=== PATIENT | female | born 1950 | race Caucasian/White ===

== ENCOUNTER 2019-05-24 13:50 | Emergency (ER) | payer MEDICARE ==
[2019-05-24 14:01] VITALS: BP 179/100
[2019-05-24] MEDS ORDERED: Al Hydrox/Mg Hydrox/Simet LIQ* 30 ML UDC PO ONE (14:29)
[2019-05-24] MEDS ORDERED: Lidocaine 2% VISCOUS* 15 ML UDC PO ONE (14:30)
--- NOTE | 2019-05-24 14:38 | UC ---
UC General HPI - HPI Summary HPI Summary: 68 yo female presents c/o acute midepigastric knife like abd pain since approx 8am this am. ++ belching. No n/v/d. No rash. No sob / cp / palpitations. No recent illness. Pt is under a great deal of stress, resides out of town, here to care for daughter with terminal illness. No h/a , vis / aud changes. Takes baby asa daily but not today. Hx cynthia bso s/p ovarian ca 25 yrs ago. No melena / brbpr. No urinary c/o's. - History of Current Complaint Chief Complaint: UCAbdominalPain Stated Complaint: ABDOMINAL COMPLAINT Time Seen by Provider: 05/24/19 14:13 Pain Intensity: 8 - Allergy/Home Medications Allergies/Adverse Reactions: Allergies Allergy/AdvReac Type Severity Reaction Status Date / Time No Known Allergies Allergy Verified 05/24/19 14:01 Home Medications: Home Medications ALPRAZolam [Xanax] 1 mg PO TID 05/24/19 [History Confirmed 05/24/19] Aspirin [Aspirin Childrens 81 MG] 81 mg PO DAILY 05/24/19 [History Confirmed ] Ferrous Gluconate TAB* [Fergon TAB*] 325 mg PO DAILY 05/24/19 [History Confirmed 05/24/19] Garlic 1,000 mg PO DAILY 05/24/19 [History Confirmed 05/24/19] Lisinopril 20 mg PO DAILY 05/24/19 [History Confirmed 05/24/19] Niacinamide [Niacin] 500 mg PO DAILY 05/24/19 [History Confirmed 05/24/19] Red Yeast Rice 600 mg PO DAILY 05/24/19 [History Confirmed 05/24/19] Selenium [Selenomax] 200 mcg PO 05/24/19 [History] Ubidecarenone [Coq10] 100 mg PO DAILY 05/24/19 [History Confirmed 05/24/19] diphenhydrAMINE HCl [Diphenhydramine HCl] 50 mg PO BEDTIME 05/24/19 [History Confirmed 05/24/19] PMH/Surg Hx/FS Hx/Imm Hx Previously Healthy: No - see hpi - Surgical History Surgical History: Yes Surgery Procedure, Year, and Place: total hysterectomy, oopherectomy, salpengectomy, appy - Social History Alcohol Use: Rare Substance Use Type: None Smoking Status (MU): Never Smoked Tobacco Review of Systems All Other Systems Reviewed And Are Negative: Yes Constitutional: Positive: Negative Skin: Positive: Negative Eyes: Positive: Negative ENT: Positive: Negative Respiratory: Positive: Other - see hpi Cardiovascular: Positive: Other - see hpi Gastrointestinal: Positive: Other - see hpi Motor: Positive: Negative Neurovascular: Positive: Negative Musculoskeletal: Positive: Negative Neurological: Positive: Negative Psychological: Positive: Negative Is Patient Immunocompromised?: No Physical Exam Triage Information Reviewed: Yes Appearance: Pain Distress, Thin Vital Signs: Initial Vital Signs Temp 97.7 F 05/24/19 13:56 Pulse 98 05/24/19 13:56 Resp 18 05/24/19 13:56 BP 179/100 05/24/19 13:56 Pulse Ox 100 05/24/19 13:56 Vital Signs Reviewed: Yes Eye Exam: Normal ENT Exam: Normal Neck exam: Normal Neck: Positive: Supple, Nontender Respiratory: Positive: Chest non-tender, Lungs clear, Normal breath sounds, No respiratory distress, No accessory muscle use Cardiovascular: Positive: RRR, No Murmur, Pulses Normal, Brisk Capillary Refill Abdominal Exam: Other - + thin + weight loss evidence + well healed large scar + + tender mid-epig + bs Musculoskeletal Exam: Normal - moves x 4 ext's hurts to lie down Neurological Exam: Normal - grossly nonfocal Psychological Exam: Normal - appropriate (tearful d/t stressors and pain) Skin Exam: Normal - nondiaphoretic. no visible or reported rash Course/Dx - Course Course Of Treatment: SR at 89 bpm. LAE. BL left axis dev. low voltage, ext leads. Highly recommend eval / tx Emergency Department. Ms. Montague carefully considered this, her family member will drive her. She does not want to go via EMS. Requests something for pain before she leaves, GI cocktail (lidocaine v., maalox ) ordered. Declines anti-emetic. Diff dx is extensive. She is aware. Call to ED at time of pt departure. - Diagnoses Provider Diagnosis: Acute abdominal pain Discharge ED - Sign-Out/Discharge Documenting (check all that apply): Patient Departure All imaging exams completed and their final reports reviewed: No Studies - Discharge Plan Condition: Guarded Disposition: HOME-RECOMMEND TO ED Patient Education Materials: Acute Abdominal Pain (ED) Referrals: No Primary Care Phys,NOPCP [Primary Care Provider] - Additional Instructions: Please go directly to the Emergency Department. Stop and call 911 for ANY problems en route. Do not eat or drink anything on the way to the Emergency Department. - Billing Disposition and Condition Condition: GUARDED Disposition: Home-Recommend to ED
== END 2019-05-24 14:45 | disposition home health service (06) ==
LOC: UCEAST 13:50
DX: R10.13 Epigastric pain (principal)
CPT/HCPCS: 93005; 99202; A9270-GY; G0463

== ENCOUNTER 2019-05-24 15:07 | Inpatient (IN) | payer MEDICARE ==
[2019-05-24] MEDS ORDERED: Morphine INJ* 2 MG/ML 1 ML SYRINGE (TWO MG - NEW SYRINGE VERSION) IV ONE ×2 (16:45→17:59)
[2019-05-24] MEDS ORDERED: Ondansetron INJ* 2 MG/ML VIAL IV ONE ×2 (16:48→21:16)
[2019-05-24] MEDS ORDERED: NS 0.9% 1000 ML** 1,000 ML IV ONE (16:48)
--- NOTE | 2019-05-24 16:59 | ED ---
GI/ HPI - HPI Summary HPI Summary: 68-year-old female presents epigastric pain today. She states that pain radiates to her back. She said belching a lot. She denies any nausea vomiting. She only had a bowel movement today because she had an enema. She has not been passing gas. She denies any history of bowel obstruction. Denies any chest pain shortness breath. She was seen at urgent care and sent in for potential abnormal EKG. No urinary symptoms. No diarrhea. Has a history of ovarian cancer that is in remission. Has had a surgery from this. - History of Current Complaint Chief Complaint: EDAbdPain Time Seen by Provider: 05/24/19 16:41 Stated Complaint: ABDOMINAL/BACK PAIN PER PT Pain Intensity: 5 - Allergy/Home Medications Allergies/Adverse Reactions: Allergies Allergy/AdvReac Type Severity Reaction Status Date / Time No Known Allergies Allergy Verified 05/24/19 14:01 Home Medications: Home Medications ALPRAZolam TAB* [Xanax TAB*] 1 mg PO TID 05/24/19 [History Confirmed 05/24/19] Aspirin 81 mg CHEW TAB* [Aspirin Low Dose TAB*] 81 mg PO DAILY 05/24/19 [ History Confirmed 05/24/19] Lisinopril TAB* [Prinivil TAB*] 20 mg PO DAILY 05/24/19 [History Confirmed 05/24] Red Yeast Rice 600 mg PO DAILY 05/24/19 [History Confirmed 05/24/19] Selenium (NF) 200 mcg PO DAILY 05/24/19 [History Confirmed 05/24/19] Ubidecarenone [Co Q-10] 100 mg PO DAILY 05/24/19 [History Confirmed 05/24/19] diPHENhydraMINE PO* [Benadryl PO 50 MG CAP*] 50 mg PO BEDTIME 05/24/19 [History Confirmed 05/24/19] PMH/Surg Hx/FS Hx/Imm Hx Endocrine/Hematology History: Denies: Hx Anticoagulant Therapy Cardiovascular History: Reports: Hx Hypertension - Cancer History Cancer Type, Location and Year: ovarian CA - Surgical History Surgery Procedure, Year, and Place: total hysterectomy, oopherectomy, salpengectomy, appy - Immunization History Immunizations Up to Date: Yes Infectious Disease History: No Infectious Disease History: Denies: Traveled Outside the [place] in Last 30 Days - Family History Known Family History: Positive: Non-Contributory - Social History Alcohol Use: Rare Substance Use Type: Reports: None Smoking Status (MU): Never Smoked Tobacco Review of Systems Negative: Fever Negative: Chest Pain Negative: Shortness Of Breath Positive: Abdominal Pain, Nausea. Negative: Vomiting, Diarrhea All Other Systems Reviewed And Are Negative: Yes Physical Exam Triage Information Reviewed: Yes Vital Signs On Initial Exam: Initial Vitals Temp Pulse Resp BP Pulse Ox 98 F 89 20 141/100 100 05/24/19 15:42 05/24/19 15:42 05/24/19 15:42 05/24/19 15:42 05/24/19 15:42 Vital Signs Reviewed: Yes Appearance: Positive: Well-Appearing Skin: Positive: Warm, Dry Head/Face: Positive: Normal Head/Face Inspection Eyes: Positive: Normal ENT: Positive: Normal ENT inspection, Pharynx normal Respiratory/Lung Sounds: Positive: Clear to Auscultation, Breath Sounds Present Cardiovascular: Positive: Normal, RRR Abdomen Description: Positive: Soft, Other: - tenderness in epigastric Bowel Sounds: Positive: Present Musculoskeletal: Positive: Normal Neurological: Positive: Normal Psychiatric: Positive: Normal Procedures - Sedation Patient Received Moderate/Deep Sedation with Procedure: No Diagnostics - Vital Signs Vital Signs Temp Pulse Resp BP Pulse Ox 05/24/19 15:42 98 F 89 20 141/100 100 - Laboratory Result Diagrams: 05/26/19 05:04 05/26/19 05:04 Lab Statement: Any lab studies that have been ordered have been reviewed, and results considered in the medical decision making process. - CT abd CT Interpretation Completed By: Radiologist Summary of CT Findings: IMPRESSION: 1. There are mildly dilated small bowel loops with air fluid levels with transition at the level of the ileum suspicious for small bowel obstruction. 2. There is colonic diverticulosis without evidence for acute diverticulitis. Re-Evaluation - Re-Evaluation First Eval Re-Evaluation Time: 17:59 Change: Improved Comment: pain still present but tolerating pain medication so will give another 2mg morphine Second Eval Re-Evaluation Time: 21:37 Change: Worse Comment: pain is returning GIGU Course/Dx - Course Course Of Treatment: 68-year-old female presents epigastric pain today. She states that pain radiates to her back. She said belching a lot. She denies any nausea vomiting. She only had a bowel movement today because she had an enema. She has not been passing gas. She denies any history of bowel obstruction. Denies any chest pain shortness breath. She was seen at urgent care and sent in for potential abnormal EKG. No urinary symptoms. No diarrhea. Has a history of ovarian cancer that is in remission. Has had a surgery from this. On exam has tenderness epigastric. No bowel sounds heard. Patient appears uncomfortable. vitals stable. wbc normal. crp normal. amylase and lipase normal. CT shows sbo. will place ng tube. called dr leos to make aware of patient. patient has not vomited in ED. ng was placed with good results. dr kowalski agrees to admit. - Diagnoses Differential Diagnoses - Female: Bowel Obstruction, Gall Bladder Disease Provider Diagnoses: Bowel obstruction Discharge ED - Sign-Out/Discharge Documenting (check all that apply): Patient Departure - Discharge Plan Condition: Stable Disposition: ADMITTED TO [facility] - Billing Disposition and Condition Condition: STABLE Disposition: Admitted to [facility] - Attestation Statements Provider Attestation: I was available for consult. This patient was seen by the NATE. The patient was not presented to, seen by, or examined by me. Saul Apple MD
[2019-05-24 17:15] LABS: ABS Lymphocytes 0.7 10^3/ul (1.0-4.8); ABS Monocytes 0.3 10^3/ul (0-0.8); ABS Neutrophils 5.9 10^3/ul (1.5-7.7); Eosinophil % 0.1 %; Hematocrit 34 % (35-47); Hemoglobin 11.6 g/dL (12.0-16.0); Lymphocyte % 10.3 %; Mean Corpuscular HGB Conc 34 g/dL (31-36); Mean Corpuscular Hemoglobin 30 pg (27-31); Mean Corpuscular Volume 87 fL (80-97); Mean Platelet Volume 7.9 fL (7.4-10.4); Platelet Count 249 10^3/uL (150-450); Red Cell Distribution Width 13 % (10-15)
[2019-05-24 17:36] LABS: ALT 9 U/L (7-52); AST 12 U/L (13-39); Albumin 4.6 g/dL (3.2-5.2); Albumin/Globulin Ratio 1.8 (1-3); Alkaline Phosphatase 42 U/L (34-104); Amylase 50 U/L (29-103); Anion Gap 11 mmol/L (2-11); BUN/Creatinine Ratio 17.7 (8-20); Blood Urea Nitrogen 17 mg/dL (6-24); C Reactive Protein < 1.00 mg/L (<8.01); CO2 Carbon Dioxide 23 mmol/L (22-32); Calcium 10.3 mg/dL (8.6-10.3); Chloride 105 mmol/L (101-111); EGFR African American 69.5 (>60); EGFR Non-African American 57.5 (>60); Globulin 2.6 g/dL (2-4); Glucose 113 mg/dL (70-100); Potassium 3.6 mmol/L (3.5-5.0); Sodium 139 mmol/L (135-145); Total Protein 7.2 g/dL (6.4-8.9)
[2019-05-24] MEDS ORDERED: Iodixanol* (CONTRAST) 320 MG/ML 100 ML SDV IV ONE (18:06)
[2019-05-24] MEDS ORDERED: Morphine 4 MG/ML VIAL (1 ml) 4 MG/ML VIAL IV ONE (19:14)
[2019-05-25] MEDS ORDERED: Lorazepam PYXIS KEY PRN (00:50)
[2019-05-25] MEDS: NS 0.9% 1000 ML** 1,000 ML IV SCH ×3 (02:31→23:20)
--- NOTE | 2019-05-25 03:05 | HP ---
CC: Dr. Don Riggs * ADMISSION HISTORY AND PHYSICAL: DATE OF ADMISSION: 05/25/19 CHIEF COMPLAINT: Abdominal pain, nausea, vomiting. HISTORY OF PRESENT ILLNESS: This is a 68-year-old female with past medical history of hypertension; anxiety; history of a large 5-pound mass in her belly, which was later noted to be ovarian cancer, status post debulking surgery about 5 years ago and no other chemo or radiation has been cancer-free since then comes in today due to abdominal pain, nausea, vomiting. The patient stated that pain started around 8 a.m. after she woke up. Pain was located in the epigastric area and nonradiating, was pressure like. She thought she felt constipated, so she tried enemas, but she stated that her constipation feels more on the upper belly rather than the lower belly and the enema did not help with the pain, so she finally decided to come to the ER for further evaluation and was diagnosed with small bowel obstruction. Her pain was still severe after she received morphine; however, her symptoms she claims are much better after NG tube with suctioning of 700 cc of gastric content. She denies any previous episodes of small bowel obstruction. She otherwise denies any chest pain, shortness of breath, fever, or chills. PAST MEDICAL HISTORY: As mentioned, 1. Hypertension. 2. Anxiety disorder. PAST SURGICAL HISTORY: 1. She has had debulking surgery for ovarian cancer and at the same time they removed her uterus, both ovaries and also the appendix. 2. She also had partial left knee surgery. 3. Left rotator cuff surgical repair. HOME MEDICATIONS: She is only prescribed the lisinopril 20 mg oral daily and Xanax 1 mg p.o. b.i.d.; however, she also takes [id number] CoQ10, selenium , Benadryl, niacin, garlic, red yeast rice and Ferrocon. ALLERGIES: No known drug allergies. FAMILY HISTORY: Noncontributory. SOCIAL HISTORY: She is currently living with her daughter caring for her, as she has some terminal cervical cancer and she originally lives near to [place], [place] and all of her primary care is over there. She otherwise denies any alcohol, smoking, or drug use and is otherwise full code and her would be the surrogate decision maker. REVIEW OF SYSTEMS: A 14-point review of systems did not reveal any new information other than what is mentioned in the HPI. PHYSICAL EXAMINATION GENERAL: The patient is awake, alert, and oriented x3, does not appear to be in any acute respiratory distress. VITAL SIGNS: In the ER, BP was noted to be 129/71, heart rate 70, respiration rate 14, saturating 96% on room air, temperature was documented at 98.5 degrees Fahrenheit. HEAD AND NECK: Atraumatic, normocephalic. Bilateral pupils are reactive. Oral mucosa was dry. Neck: Supple. No jugular venous distention. LUNGS: Clear to auscultation bilaterally. No wheezing, rhonchi, or rales. HEART: S1, S2. Regular rate and rhythm. ABDOMEN: Soft, minimally tender, but normoactive bowel sounds. EXTREMITIES: No cyanosis, clubbing, or edema. LABORATORY DATA/DIAGNOSTIC STUDIES: CBC was showing some mild anemia with hemoglobin of 11.6, hematocrit of 34. Comprehensive metabolic panel was unremarkable except for minimally elevated creatinine at 0.96. Lactic acid normal. LFTs within normal limits. EKG showed sinus rhythm at 84 beats per minute without any ST elevation. CT abdomen and pelvis was read as mildly dilated small bowel loops with air fluid levels with transition at the level of ileum, suspicion for small bowel obstruction. There is colonic diverticulosis without evidence of acute diverticulitis. IMPRESSION: This is a 68-year-old female with ovarian cancer status post debulking surgery, hypertension, anxiety disorder, here due to abdominal pain and belching likely secondary to small bowel obstruction. ass ASSESSMENT AND PLAN: 1. Small bowel obstruction, likely secondary to scar tissues from her previous surgery. For now, we will continue the conservative management started in the ER including NG suction to low intermittent wall suctioning. Consult with Dr. Riggs who is already called by the ER physician regarding further care. Keep the patient n.p.o. and IV fluid administration. 2. History of hypertension. We will hold her BP medication. 3. History of anxiety disorder. We will change the Xanax to Ativan p.r.n. IV. 4. DVT prophylaxis with sequential compression device. 5. Code status. Full code with her son being healthcare proxy. [id number]/[facility] #: [id number] [facility]
[2019-05-25] MEDS: Ondansetron INJ* 2 MG/ML VIAL IV PRN ×4 (04:34→23:21)
[2019-05-25] MEDS: Morphine INJ* 2 MG/ML 1 ML SYRINGE (TWO MG - NEW SYRINGE VERSION) IV PRN ×2 (04:37→23:21)
[2019-05-25] MEDS: LORazepam INJ* 2 MG/ML 1 ML VIAL IV PUSH PRN ×2 (07:42→20:51)
--- NOTE | 2019-05-25 09:41 | PN ---
Subjective Date of Service: 05/25/19 Interval History: Patient felt abdominal pain improving, not yet passing gas yet. She started to have headache this morning. Objective Active Medications: Sodium Chloride (Ns 0.9% 1000 Ml) 1,000 mls @ 100 mls/hr IV PER RATE SHONDA Last Admin: 05/25/19 02:31 Dose: 100 mls/hr Lorazepam (Ativan Inj*) 0.5 mg IV PUSH Q4H PRN PRN Reason: ANXIETY Last Admin: 05/25/19 07:42 Dose: 0.5 mg Miscellaneous (Ativan Pyxis Howard) 1 ea N/A .ATIVAN IV HOWARD PRN PRN Reason: PYXIS HOWARD Morphine Sulfate (Morphine Inj (Syringe))*) 2 mg IV Q4H PRN PRN Reason: PAIN - MILD Last Admin: 05/25/19 04:37 Dose: 2 mg Ondansetron HCl (Zofran Inj*) 4 mg IV Q4H PRN PRN Reason: NAUSEA/VOMITING Last Admin: 05/25/19 04:34 Dose: 4 mg Vital Signs - 8 hr 05/25/19 05/25/19 05/25/19 01:48 02:00 02:21 Temperature 98.6 F Pulse Rate 70 75 Respiratory 16 15 18 Rate Blood Pressure 111/63 133/64 (mmHg) O2 Sat by Pulse 96 99 Oximetry 05/25/19 05/25/19 05/25/19 02:26 04:37 06:01 Temperature 98.7 F Pulse Rate 69 Respiratory 16 18 16 Rate Blood Pressure 111/63 (mmHg) O2 Sat by Pulse 96 Oximetry 05/25/19 05/25/19 05/25/19 07:38 07:42 09:22 Temperature 98 F Pulse Rate 84 Respiratory 17 16 16 Rate Blood Pressure 137/63 (mmHg) O2 Sat by Pulse 99 Oximetry Oxygen Devices in Use Now: None Exam: GEN: weak looking, not in acute distress. HEENT: NGT in situ HEART: S1,S2, no murmur Lung: clear Abdomen: soft, tenderness over LLQ, no rebound tenderness, no rigidity Extremity: warm, cap refill<2 Result Diagrams: 05/24/19 17:05 05/24/19 17:05 Assess/Plan/Problems-Billing Assessment: 68 y/o female with history of debulking surgery for cervical cancer, who presented with acute onset of abdominal pain, found to have small bowel obstruction. - Patient Problems (1) Small bowel obstruction Current Visit: Yes Status: Acute Code(s): K56.609 - UNSP INTESTNL OBST, UNSP TO PARTIAL VERSUS COMPLETE OBST SNOMED Code(s): 420425545 Comment: - causes could be surgical adhesion from previous debulking surgery - first episode ever - continue npo, NGT, iv fluid for now, will reaccess BM this afternoon - surgical team will follow up. (2) Headache Current Visit: Yes Status: Acute Code(s): R51 - HEADACHE SNOMED Code(s): 34918362 Comment: - tension headache likely - iv ketorolac prn (3) DVT (deep venous thrombosis) Current Visit: Yes Status: Acute Code(s): I82.409 - ACUTE EMBOLISM AND THOMBOS UNSP DEEP VN UNSP LOWER EXTREMITY SNOMED Code(s): 070259835 Comment: sc Lovenox Status and Disposition: Inpatient Medicine. Attestation Documenting Resident: Allie Dominique Supervising Physician: Candelaria Mcgrath Attestation: This service has been performed in part by a resident under the direction of a teaching physician.I, Candelaria Mcgrath, performed the service, or was physically present during the critical, or howard portions of the service, furnished by the resident. I participated in the management of the patient.
[2019-05-25] MEDS: Ketorolac INJ* 15 MG/ML 1 ML VIAL IV PUSH PRN ×2 (10:05→17:31)
--- NOTE | 2019-05-25 12:09 | PN ---
Hospitalist Progress Note Date of Service: 05/25/19 S/IE: Winifred Montague is a 68 y/o female with a history of ovarian cancer treated by an extensive debulking surgery, HTN and anxiety admitted to the hospitalist service with complaints of abdominal pain, nausea and constipation suspicious for a small bowel obstruction. She has a new complaint of headache and continues to complain of some LLQ tenderness. Pain scale is 7/10. She continues to deny CP, SOB, hemoptysis, fever, and chills. O: PE: 3 Temp Pulse Resp BP Pulse Ox 98.1 F 83 17 126/59 99 05/25/19 11:29 05/25/19 11:29 05/25/19 11:29 05/25/19 11:29 05/25/19 11:29 HEENT: Head atraumatic, normocephalic. PERRLA, EOMI. Oral mucosa dry. Neck supple. No JVD. No lymphadenopathy. Chest: Breathing unlabored with normal symmetric chest wall movement. Lungs clear and equal bilaterally. Regular heart rhythm with normal S1/S2. No rubs, clicks or gallops. Abdomen: Soft and non-distended with diffuse tenderness to palpation primarily of the LLQ. Normal bowel sounds appreciated. Extremities: UE and LE distal CMS intact b/l. Good hand manager convention strength b/l. No edema. Abnormal Lab Values: 3 05/24/19 05/24/19 05/25/19 17:05 17:05 12:35 Hgb 11.6 L Hct 34 L Absolute Lymphs (auto) 0.7 L Creatinine 0.96 H Glucose 113 H AST 12 L Urine Ketones 1+ A Urine Blood 1+ A Ur Leukocyte Esterase Trace A Urine WBC (Auto) 1+(6-10/hpf) A Ur Squamous Epith Cells Present A EKG Report (05/24/19): Sinus rhythm. Probable left atrial enlargement. Borderline left axis deviation. Abdominal X-Ray Report (05/24/19) Pertinent Info: Findings: Mild distention of distal small bowel loops which project over the pelvis. The colon appears nondistended. There are multiple surgical clips which project bilaterally over the abdomen and pelvis. Impression: Findings suggestive of a partial small bowel obstruction. Abdomen / Pelvis CT Report (05/24/19) Pertinent Info: Findings: Stomach and bowel: There are postoperative changes involving the bowel. There are mildly dilated small bowel loops with air fluid levels with transition at the level of the ileum suspicious for small bowel obstruction. There is colonic diverticulosis without evidence for acute diverticulitis. Impression: There are mildly dilated small bowel loops with air fluid levels with transition at the level of the ileum suspicious for small bowel obstruction. There is colonic diverticulosis without evidence for acute diverticulitis. A/I: 68 y/o female with a history of ovarian cancer treated by an extensive debulking surgery, HTN and anxiety with complaints of abdominal pain, nausea and constipation suspicious for a small bowel obstruction likely due to adhesions from previous abdominal surgeries. P: SBO: High suspicion for SBO based upon H+P and imaging studies. Low suspicion for ileus - positive bowel sounds. Low suspicion for peritonitis - stable vital signs. Continue NPO with NG tube in place and monitor for passing of flatus or BM. Consider GI consult if no timely spontaneous resolution. Repeat CBC and CMP QD Continue NS 100 ml/hr IV for hydration Continue MSO4 2 mg IV PRN pain Q4H Continue ondansetron 4 mg IV PRN nausea Q4H Headache: No s/s of migraine. Vital signs stable. Suspect due to sleep disturbance and / or NPO status. Order ketorolac 15 mg IVP PRN Q6H Anxiety: Chronic condition normally managed with PO alprazolam PRN. Continue in hospital management with lorazepam 0.5 mg IVP PRN Q4H
--- NOTE | 2019-05-25 12:30 | CONS ---
CONSULTATION REPORT: DATE OF CONSULT: 05/25/19 REFERRING PROVIDER: Zaki Nix MD, hospitalist. REASON FOR CONSULT: Small bowel obstruction. CHIEF COMPLAINT: Crampy severe abdominal pain with nausea without vomiting. HISTORY OF PRESENT ILLNESS: Ms. Winifred Montague is a 68-year-old woman who lives in [place], [place], who is spending time in [place] with her daughter who presently has a cervical cancer. Yesterday morning, Ms. Montague developed a rather sudden onset of severe crampy abdominal discomfort with nausea without vomiting. This pain persisted and she tried an anemia without improvement. She presented to the emergency room in the afternoon yesterday and was noted to be afebrile with essentially normal vital signs. She was noted to have some mild abdominal discomfort and distention. Nasogastric tube was placed and drained approximately 700 cc of bilious fluid. Laboratory workup included a normal white blood cell count of 7000. Electrolytes, BUN, and creatinine were essentially unremarkable and she had lactic acid of 1.2. Lipase was normal. She underwent a CT scan of the abdomen and pelvis. I did review these images. This shows mildly dilated proximal small bowel loops with some air/fluid levels and some distally collapsed small bowel with the probable transition point in the right lower quadrant. There was some diverticulosis noted. There was no evidence of free fluid, free air or abscess. She underwent an open oncologic operation almost 25 years ago at [facility] [place] for ovarian mass which she describes as cancer. I assume that both ovaries, tubes and uterus as well as a lymph node dissection was performed. She thinks her appendix was also removed. She has been admitted to the hospitalist service and surgical consultation is obtained. PAST MEDICAL HISTORY: 1. Ovarian cancer/tumor as per above. 2. Hypertension. 3. Anxiety disorder. PAST SURGICAL HISTORY: 1. Exploratory laparotomy with hysterectomy and oophorectomy as well as appendectomy. Review of the CT scan shows numerous clips in the retroperitoneum and I assume that a lymph node dissection was also performed. 2. Partial left knee surgery. 3. Left rotator cuff. MEDICATIONS: Include: 1. Lisinopril 20 mg daily. 2. Xanax 1 mg p.o. b.i.d. 3. Multiple [id number] compounds. ALLERGIES: She has no known drug allergies. FAMILY HISTORY: Noncontributory. SOCIAL HISTORY: She is presently living with her daughter and caring for her in [place]. She lives near [place] and her has been commuting back and forth. She has also a daughter who lives in [place]. She does not use alcohol, tobacco, or drugs, and is a full code and her is her surrogate decision maker. REVIEW OF SYSTEMS: A 14-point review of systems did not reveal any new information other than what is described above. PHYSICAL EXAM: Temperature 98, pulse 84, blood pressure 137/63. In general, she is a slender female sitting upright in bed. Appears to be in no acute distress. She is very pleasant and conversive. Lungs were clear to auscultation with normal respiratory effort. Heart was regular rate and rhythm without murmurs, rubs, or gallops. Her abdomen is soft and not particularly distended. She has hyperactive bowel sounds, but they are normal pitched without tinkling or cathedral sounds. She has a well-healed midline incision from just below the xiphoid down to the pubis without hernia. She has some mild tenderness in the left lower quadrant but there is no rebound, guarding, or peritoneal irritation. Psychiatric: She is awake, alert, and oriented x3. She has normal judgement and insight. IMPRESSION: Small bowel obstruction. This is her first episode of symptoms most likely due to adhesive disease from her previous operation almost 25 years ago. She seems to be feeling better now and has received some IV morphine, but shows no evidence of tachycardia, fever, significant abdominal pain and she has a normal white blood cell count. Nasogastric tube is drained minimally overnight. She denies passing flatus or bowel movements since her admission. At this point, I recommend continued nonoperative management and hopefully this will resolve with this care and laparotomy will not be required. I have ordered abdominal x-rays for tomorrow morning for followup. Thank you for the consultation. For now, we will follow her closely with you. [id number]/[facility] #: [id number] ISIDRA
[2019-05-25 13:20] LABS: Urine Appearance Clear; Urine Bacteria Absent (Absent); Urine Bilirubin Negative (Negative); Urine Blood 1+ (Negative); Urine Color Yellow; Urine Glucose Negative (Negative); Urine Ketones 1+ (Negative); Urine Nitrite Negative (Negative); Urine Protein Negative (Negative); Urine Red Blood Cell Trace(0-2/hpf) (Absent); Urine Specific Gravity 1.027 (1.010-1.030); Urine Squamous Epithelial Cell Present (Absent); Urine Urobilinogen Negative (Negative); Urine White Blood Cell 1+(6-10/hpf) (Absent)
--- NOTE | 2019-05-25 14:47 | PN ---
<Chelle Jolley - Last Filed: 05/25/19 15:03> Progress Note - Progress Note Date of Service: 05/25/19 Note: Subjective HPI: Patient is a 68 year old female with a history of Ovarian cancer, hypertension and anxiety that presented to the ED yesterday with a chief complaint of worsening abdominal pain. Her pain began yesterday at 8am and progressively worsened throughout the day. The pain was localized to her lower abdomen and did not radiate. She described the pain as a constant pressure stating that it was a 12/10 and that she has never experienced pain like this before. When she burps, she has a slight decrease in pain. She describes no aggravating factors and did not take any medication for the pain until she came to the ED, which subsequently made her nauseous. She denies vomiting. She was able to have small bowel movements this weekend after taking an enema, but does not recall having a bowel movement within the last 48 hours and has not been able to pass flatus. She denies chest pain, shortness of breathe, heart palpitations or urinary symptoms. She denies fever, chills or night sweats. She has lost about 10 pounds, but states her eating habits have changed due to recent life stressors. She does not feel like her abdomen is distended, and her pain has decreased to a 5/10 since being admitted to the hospital with IV fluids , pain medication and NG tube placement. SH: Patient is and lives with her about 120 miles away from [place]. She is in the area to help her daughter who is terminally ill with cancer. 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 She denies any tobacco, alcohol or recreational drug use. PMH: See HPI Surgical History: resection of ovarian cancer 25 years ago Allergies: NKDA Medications: Lisinopril, 20mg daily; Xanax, 1mg po BID FH: noncontributory Objective Vital Signs Temp 98.1 F 05/25/19 11:29 Pulse 83 05/25/19 11:29 Resp 17 05/25/19 11:29 BP 126/59 05/25/19 11:29 Pulse Ox 99 05/25/19 11:29 Intake & Output 05/24/19 05/25/19 05/25/19 18:59 06:59 18:59 Intake Total 1000 915 Output Total 900 400 Balance 100 515 Weight 140 lb 140 lb Intake: IV Fluids 1000 915 NS (0.9%) 915 Oral 0 0 Output: NG Tube Drainage Amount 900 200 Urine 0 200 Other: Estimated Void Large # Voids 1 General: Ill appearing, slender female laying on the bed. She is pleasant and cooperative and is in mild pain. Does not open eyes fully and communicates mostly by whispering. CV: RRR Lungs: CTA Spine: No CVA tenderness. No paraspinous muscle tenderness. No spinal abnormalities or scoliosis. Abdomen: Appears nondistended without bruising, erythema or pulsitle masses. There is a midline abdominal scar from previous surgery extending from below the xiphoid to the pubis. Positive bowel sounds in all four quadrants. Mild tympani to percussion of the RUQ/LUQ with tenderness to palpation of the RLQ/ LLQ. No rebound, guarding or peritoneal irritation CT abdomen/ pelvis: Per radiology, mildly dilated loops of small bowel with air fluid levels at the level of the ileum suspicious for SBO. There is colonic diverticulosis without evidence of diverticulitis. Laboratory Tests 05/24/19 17:05 WBC 7.0 RBC 3.90 Hgb 11.6 L Hct 34 L Assessment/plan Patient has SBO most likely due to adhesions from prior surgery. She was given pain medication, IV fluids, NPO and placed on an NG tube, and her pain has since decreased to a 5/10. She has no fever and a normal WBC; no signs of sepsis. Continue NPO and NG tube for bowel rest and manage pain IV. Continue to monitor patient for bowel movements and flatus and improvement. <Juan Melendez - Last Filed: 05/25/19 16:53> Progress Note - Progress Note Note: She undergoes colonoscopy screening q 5 yrs, her last exam being ~ 4yrs ago with no problems reported at the time.
[2019-05-26] MEDS: Ondansetron INJ* 2 MG/ML VIAL IV PRN (04:18)
[2019-05-26] MEDS: Morphine INJ* 2 MG/ML 1 ML SYRINGE (TWO MG - NEW SYRINGE VERSION) IV PRN (04:18)
[2019-05-26 05:56] LABS: ABS Lymphocytes 0.5 10^3/ul (1.0-4.8); ABS Monocytes 0.5 10^3/ul (0-0.8); ABS Neutrophils 4.9 10^3/ul (1.5-7.7); Eosinophil % 0.2 %; Hematocrit 30 % (35-47); Hemoglobin 10.2 g/dL (12.0-16.0); Mean Corpuscular HGB Conc 34 g/dL (31-36); Mean Corpuscular Hemoglobin 30 pg (27-31); Mean Corpuscular Volume 90 fL (80-97); Mean Platelet Volume 8.1 fL (7.4-10.4); Platelet Count 181 10^3/uL (150-450); Red Blood Count 3.38 10^6 /uL (3.70-4.87); Red Cell Distribution Width 13 % (10-15); White Blood Count 5.9 10^3/uL (3.5-10.8)
[2019-05-26 06:12] LABS: Anion Gap 7 mmol/L (2-11); Blood Urea Nitrogen 22 mg/dL (6-24); CO2 Carbon Dioxide 25 mmol/L (22-32); Calcium 8.9 mg/dL (8.6-10.3); Chloride 109 mmol/L (101-111); EGFR African American 76.9 (>60); EGFR Non-African American 63.5 (>60); Glucose 111 mg/dL (70-100); Potassium 3.7 mmol/L (3.5-5.0); Sodium 141 mmol/L (135-145)
--- NOTE | 2019-05-26 09:03 | PN ---
Progress Note - Progress Note Date of Service: 05/26/19 SOAP: Subjective: Still no flatus or BM Feels a little more distended Occasional pain Ambulated in halls yesterday Objective: Temp Pulse Resp BP Pulse Ox 98.0 F 81 18 137/65 100 05/26/19 07:56 05/26/19 07:56 05/26/19 08:00 05/26/19 07:56 05/26/19 07:56 Intake & Output 05/24/19 05/25/19 05/26/19 05/27/19 06:59 06:59 06:59 06:59 Intake Total 1000 1872 Output Total 900 1000 Balance 100 872 Weight 140 lb Intake: IV Fluids 1000 1872 NS (0.9%) 1872 Oral 0 0 Output: NG Tube Drainage Amount 900 500 Urine 0 500 Other: Estimated Void Large # Voids 1 PEX: Comfortable Lungs are clear Abd is soft and slightly distended. Bowel sounds are present and are normoactive , not high pitched or tinkling. Mild tenderness LLQ-no rebound, no peritoneal irritation Laboratory Results - last 24 hr 05/25/19 05/25/19 05/25/19 12:26 12:35 17:21 WBC RBC Hgb Hct MCV MCH MCHC RDW Plt Count MPV Neut % (Auto) Lymph % (Auto) [place] % (Auto) Eos % (Auto) Baso % (Auto) Absolute Neuts (auto) Absolute Lymphs (auto) Absolute Monos (auto) Absolute Eos (auto) Absolute Basos (auto) Absolute Nucleated RBC Nucleated RBC % Sodium Potassium Chloride Carbon Dioxide Anion Gap BUN Creatinine Est GFR ( Amer) Est GFR (Non-Af Amer) BUN/Creatinine Ratio Glucose POC Glucose (mg/dL) 122 H 120 H Calcium Urine Color Yellow Urine Appearance Clear Urine pH 5.0 Ur Specific [place] 1.027 Urine Protein Negative Urine Ketones 1+ A Urine Blood 1+ A Urine Nitrate Negative Urine Bilirubin Negative Urine Urobilinogen Negative Ur Leukocyte Esterase Trace A Urine WBC (Auto) 1+(6-10/hpf) A Urine RBC (Auto) Trace(0-2/hpf) Ur Squamous Epith Cells Present A Urine Bacteria Absent Urine Glucose Negative 05/25/19 05/26/19 05/26/19 23:50 05:04 05:04 WBC 5.9 RBC 3.38 L Hgb 10.2 L Hct 30 L MCV 90 MCH 30 MCHC 34 RDW 13 Plt Count 181 MPV 8.1 Neut % (Auto) 83.1 Lymph % (Auto) 8.0 [place] % (Auto) 8.4 Eos % (Auto) 0.2 Baso % (Auto) 0.3 Absolute Neuts (auto) 4.9 Absolute Lymphs (auto) 0.5 L Absolute Monos (auto) 0.5 Absolute Eos (auto) 0.0 Absolute Basos (auto) 0.0 Absolute Nucleated RBC 0.0 Nucleated RBC % 0.0 Sodium 141 Potassium 3.7 Chloride 109 Carbon Dioxide 25 Anion Gap 7 BUN 22 Creatinine 0.88 Est GFR ( Amer) 76.9 Est GFR (Non-Af Amer) 63.5 BUN/Creatinine Ratio 25.0 H Glucose 111 H POC Glucose (mg/dL) 117 H Calcium 8.9 Urine Color Urine Appearance Urine pH Ur Specific [place] Urine Protein Urine Ketones Urine Blood Urine Nitrate Urine Bilirubin Urine Urobilinogen Ur Leukocyte Esterase Urine WBC (Auto) Urine RBC (Auto) Ur Squamous Epith Cells Urine Bacteria Urine Glucose Assessment: Small bowel obstruction-presumed secondary to adhesions-no improvement, minimal NGT output Anxiety Plan: Continue NGT and IVF AXR this morning-pending. Continue present non-operative care--no fever, tachycardia, has rather benign exam and normal WBC--no urgent indication for surgical intervention. Discussed care with patient--if no resolution in next 24-48 hours will require laparotomy.
[2019-05-26] MEDS: LORazepam INJ* 2 MG/ML 1 ML VIAL IV PUSH PRN ×2 (09:13→19:58)
[2019-05-26] MEDS: NS 0.9% 1000 ML** 1,000 ML IV SCH ×2 (09:49→21:27)
[2019-05-26] MEDS: Ketorolac INJ* 15 MG/ML 1 ML VIAL IV PUSH PRN ×2 (12:47→19:55)
--- NOTE | 2019-05-26 13:28 | PN ---
Subjective Date of Service: 05/26/19 Interval History: Patient remained afebrile. She hasn't passed flatus yet but felt abdominal pain decreasing. She walked with nurses today. Objective Active Medications: Sodium Chloride (Ns 0.9% 1000 Ml) 1,000 mls @ 100 mls/hr IV PER RATE SHONDA Last Admin: 05/26/19 09:49 Dose: 100 mls/hr Ketorolac Tromethamine (Toradol Inj*) 15 mg IV PUSH Q6H PRN PRN Reason: headache Last Admin: 05/26/19 12:47 Dose: 15 mg Lorazepam (Ativan Inj*) 0.5 mg IV PUSH Q4H PRN PRN Reason: ANXIETY Last Admin: 05/26/19 09:13 Dose: 0.5 mg Miscellaneous (Ativan Pyxis Howard) 1 ea N/A .ATIVAN IV HOWARD PRN PRN Reason: PYXIS HOWARD Morphine Sulfate (Morphine Inj (Syringe))*) 2 mg IV Q4H PRN PRN Reason: PAIN - MILD Last Admin: 05/26/19 04:18 Dose: 2 mg Ondansetron HCl (Zofran Inj*) 4 mg IV Q4H PRN PRN Reason: NAUSEA/VOMITING Last Admin: 05/26/19 04:18 Dose: 4 mg Vital Signs - 8 hr 05/26/19 05/26/19 05/26/19 06:03 07:56 08:00 Temperature 98.0 F Pulse Rate 81 Respiratory 16 16 18 Rate Blood Pressure 137/65 (mmHg) O2 Sat by Pulse 100 Oximetry 05/26/19 05/26/19 05/26/19 09:13 10:11 11:29 Temperature 97.7 F Pulse Rate 86 Respiratory 18 16 16 Rate Blood Pressure 104/74 (mmHg) O2 Sat by Pulse 99 Oximetry Oxygen Devices in Use Now: None Exam: GEN: weak looking, NAD HEART: S1S2, no murmur Lung: clear Abdomen: tenderness over LUQ Calves: supple. Result Diagrams: 05/26/19 05:04 05/26/19 05:04 Assess/Plan/Problems-Billing Assessment: 68 y/o female with history of debulking surgery for cervical cancer, who presented with acute onset of abdominal pain, found to have small bowel obstruction. - Patient Problems (1) Small bowel obstruction Current Visit: Yes Status: Acute Code(s): K56.609 - UNSP INTESTNL OBST, UNSP TO PARTIAL VERSUS COMPLETE OBST SNOMED Code(s): 800770317 Comment: - causes could be surgical adhesion from previous debulking surgery - first episode ever - still continue npo, NGT, iv fluid for now, will open diet when she passed flatus or BM - surgical team is following (2) Headache Current Visit: Yes Status: Acute Code(s): R51 - HEADACHE SNOMED Code(s): 80029949 Comment: - tension headache likely - iv ketorolac prn - resolved (3) DVT (deep venous thrombosis) Current Visit: Yes Status: Acute Code(s): I82.409 - ACUTE EMBOLISM AND THOMBOS UNSP DEEP VN UNSP LOWER EXTREMITY SNOMED Code(s): 009744134 Comment: sindy [facility] Status and Disposition: Inpatient Medicine. Attestation Documenting Resident: Allie Dominique Supervising Physician: Candelaria Mcgrath Attestation: This service has been performed in part by a resident under the direction of a teaching physician.I, Candelaria Mcgrath, performed the service, or was physically present during the critical, or howard portions of the service, furnished by the resident. I participated in the management of the patient.
[2019-05-27] MEDS: NS 0.9% 1000 ML** 1,000 ML IV SCH (07:31)
[2019-05-27] MEDS: LORazepam INJ* 2 MG/ML 1 ML VIAL IV PUSH PRN (08:17)
[2019-05-27] MEDS: Ketorolac INJ* 15 MG/ML 1 ML VIAL IV PUSH PRN ×2 (08:37→15:45)
[2019-05-27 12:44] LABS: % Iron Saturation 12 % (15-55); Iron 36 ug/dL (50-212); Total Iron Binding Capacity 308 mcg/dL (250-450); Transferrin 220 mg/dL (203-362)
--- NOTE | 2019-05-27 12:50 | PN ---
Progress Note - Progress Note Date of Service: 05/27/19 Note: Surgery Progress S: Feels much better. Passing "lots" of flatus. No N/V. (Is actually drinking clear liquids at present around NG which is still in place.) No BM. Denies SOB. O: Vital Signs - 8 hr 05/27/19 05/27/19 05/27/19 07:29 07:30 08:17 Temperature 98.5 F Pulse Rate 92 Respiratory 17 16 16 Rate Blood Pressure 143/74 (mmHg) O2 Sat by Pulse 97 Oximetry 05/27/19 11:06 Temperature 97.5 F Pulse Rate 80 Respiratory 18 Rate Blood Pressure 139/63 (mmHg) O2 Sat by Pulse 98 Oximetry Intake and Output Last 24 Hours 05/25/19 05/26/19 05/27/19 05/28/19 06:59 06:59 06:59 06:59 Intake Total 1000 1872 981 980 Output Total 900 1000 1650 150 Balance 100 872 -669 830 Weight 140 lb Intake: IV Fluids 1000 1872 981 980 NS (0.9%) 1871 981 980 Oral 0 0 0 Output: NG Tube Drainage Amount 736 872 8034 Urine 0 500 500 150 Other: Estimated Void Large # Voids 1 Gen: sitting up in bed; appears comfortable, smiling Heart: reg Lungs: clear ant; sl decreased BS at bases Abd: nondistended; +BS (hyperactive; a few rushes); soft; limited area of tenderness (mild) to the left of midline, lower abdomen; remainder nontender. A: SBO, resolving P: agree w/ hospitalist plan to d/c NG and start clears; if does well, could likely be d/c'd to home in 1-2 d and continue slow advancement of diet.
[2019-05-27 12:54] LABS: Ferritin 40.9 ng/mL (11-307)
[2019-05-27 12:58] LABS: Folate > 20.00 ng/mL (>3.99)
--- NOTE | 2019-05-27 13:40 | PN ---
Progress Note - Progress Note Date of Service: 05/27/19 Note: Subjective Patient is a 68 year old female with a history of ovarian cancer admitted Thursday for small bowel obstruction. She is in minimal pain and is ambulating well. She has not taken any pain medication (Tylenol) since 9am this morning. She denies nausea or vomiting and is tolerating a full liquid diet. She says she is able to pass flatus but has yet to have a bowel movement; she denies any urinary symptom. She is hopeful for discharge tomorrow. Objective Vital Signs Temp 97.5 F 05/27/19 11:06 Pulse 80 05/27/19 11:06 Resp 18 05/27/19 11:06 BP 139/63 05/27/19 11:06 Pulse Ox 98 05/27/19 11:06 Intake & Output 05/26/19 05/27/19 05/27/19 18:59 06:59 18:59 Intake Total 981 0 980 Output Total 550 1100 150 Balance 431 -1100 830 Intake: IV Fluids 981 980 NS (0.9%) 981 980 Oral 0 0 Output: NG Tube Drainage Amount 200 950 Urine 350 150 150 General: Well appearing, in NAD. She is pleasant and cooperative. CV: RRR Lungs: CTA Abdomen: Soft and nondistended. Hyperactive bowel sounds with rushing and tinkling. Mild tenderness to palpation of the lower abdomen with more discomfort to the LLQ. Assessment/Plan Patient was admitted Thursday for worsening abdominal pain and was found to have a SBO. Since admission, patient symptoms have improved. Her NG tube was removed and she has been tolerating a full liquid diet without nausea or vomiting. Able to pass flatus but still has not had a bowel movement. Her pain has significantly decreased to a 1/10 and she is taking little to no pain medication. Ambulating well. Continue full liquid diet and possibly advance to solids. Monitor for BM. If continued improvement, d/c tomorrow.
--- NOTE | 2019-05-27 15:07 | PN ---
Hospitalist Progress Note Date of Service: 05/27/19 S/IE: Winifred Montague is a 68 y/o female with a history of ovarian cancer treated by an extensive debulking surgery, HTN and anxiety admitted to the hospitalist service with complaints of abdominal pain, nausea and constipation suspicious for a small bowel obstruction. She reports passage of significant flatus on at least three occasions last evening and early this AM. No bowel movement yet. Headache resolved - patient believes it may have been a side effect of narcotic analgesia which she is no longer needing. Discussed incidental finding of anemia with patient, she states this is not uncommon for her but could not provide further details. Reports last colonoscopy 4 years ago with no abnormal findings. Sister of colon cancer age 50. Advised to check if blood in stool once BM occurs. Continues to deny CP, SOB, hemoptysis, fever, and chills. Excited about removal of NG tube and looks forward to eating / drinking. Inquiring about when she might be able to be discharged. O: PE: 3 Temp Pulse Resp BP Pulse Ox 97.5 F 80 18 139/63 98 05/27/19 11:06 05/27/19 11:06 05/27/19 11:06 05/27/19 11:06 05/27/19 11:06 HEENT: Head atraumatic, normocephalic. PERRLA, EOMI. Chest: Breathing unlabored with normal symmetric chest wall movement. Lungs clear and equal bilaterally. Regular heart rhythm with normal S1/S2. No rubs, clicks or gallops. Abdomen: Soft and non-distended with diffuse mild tenderness to palpation. Normal bowel sounds appreciated. Extremities: UE and LE distal CMS intact b/l. Abnormal Lab Values: 3 05/26/19 05/26/19 05:04 05:04 RBC 3.38 L Hgb 10.2 L Hct 30 L Absolute Lymphs (auto) 0.5 L BUN/Creatinine Ratio 25.0 H Glucose 111 H Iron 36 L % Saturation 12 L A/I: 68 y/o female with a history of ovarian cancer treated by an extensive debulking surgery, HTN and anxiety with complaints of abdominal pain, nausea and constipation suspicious for a small bowel obstruction likely due to adhesions from previous abdominal surgeries with good response to conservative management. Need to investigate incidental findings of anemia and hyperglycemia. Possible d/c tomorrow if condition continues to improve and investigations of anemia and hyperglycemia do not produce any critical findings. P: SBO: DDx: High suspicion for SBO based upon H+P and imaging studies. Low suspicion for ileus - positive bowel sounds. Low suspicion for peritonitis - stable vital signs. Continue NPO with NG tube in place and monitor for passing of flatus or BM. Tx: Good response to conservative management including NG tube with suction, NS maintenance IV, and PRN MSO4 and ondansetron as evidenced by passage of flatus supports suspected Dx. No need for surgical intervention as condition is improving NG tube to be removed Clear liquid diet started today, full liquid diet this evening, start soft food diet tomorrow Performed colonic stimulation, can repeat tomorrow AM if needed Consider ordering laxative Continue to monitor for passage of flatus / bowel movement Encourage continued ambulation as tolerated Consider d/c IV NS maintenance infusion Headache: DDx: No s/s of migraine. Vital signs stable. Suspect due to sleep disturbance and / or NPO status. Tx: Headache resolved. Patient reported headaches common for her with opioid analgesia which she is no longer requiring Discontinued ketorolac and morphine Will order PRN acetaminophen in still need pain control tomorrow Anxiety: Chronic condition normally managed with PO alprazolam PRN Continue in hospital management with lorazepam 0.5 mg IVP PRN Q4H Anemia: DDx: Asymptomatic normocytic anemia of unknown origin. Need more diagnostic information Ordered B12, ferritin, folate, iron and TIBC studies and will also repeat CBC tomorrow Hyperglycemia: DDx: High suspicion for undiagnosed early stage DMII based upon high fasting BGT readings Ordered HgbA1C
--- NOTE | 2019-05-27 15:08 | PN ---
Subjective Date of Service: 05/27/19 Interval History: Patient felt much improved. She passed flatus multiple times, but not yet had BM. Objective Active Medications: Sodium Chloride (Ns 0.9% 1000 Ml) 1,000 mls @ 100 mls/hr IV PER RATE SHONDA Last Admin: 05/27/19 07:31 Dose: 100 mls/hr Ketorolac Tromethamine (Toradol Inj*) 15 mg IV PUSH Q6H PRN PRN Reason: headache Last Admin: 05/27/19 08:37 Dose: 15 mg Lorazepam (Ativan Inj*) 0.5 mg IV PUSH Q4H PRN PRN Reason: ANXIETY Last Admin: 05/27/19 08:17 Dose: 0.5 mg Miscellaneous (Ativan Pyxis Howard) 1 ea N/A .ATIVAN IV HOWARD PRN PRN Reason: PYXIS HOWARD Morphine Sulfate (Morphine Inj (Syringe))*) 2 mg IV Q4H PRN PRN Reason: PAIN - MILD Last Admin: 05/26/19 04:18 Dose: 2 mg Ondansetron HCl (Zofran Inj*) 4 mg IV Q4H PRN PRN Reason: NAUSEA/VOMITING Last Admin: 05/26/19 04:18 Dose: 4 mg Vital Signs - 8 hr 05/27/19 05/27/19 05/27/19 07:29 07:30 08:17 Temperature 98.5 F Pulse Rate 92 Respiratory 17 16 16 Rate Blood Pressure 143/74 (mmHg) O2 Sat by Pulse 97 Oximetry 05/27/19 11:06 Temperature 97.5 F Pulse Rate 80 Respiratory 18 Rate Blood Pressure 139/63 (mmHg) O2 Sat by Pulse 98 Oximetry Oxygen Devices in Use Now: None Exam: GEN: much cheerful, NAD HEART: S1S2, no murmur Lung: clear Abdomen: mild tenderness over LUQ Calves: supple. Result Diagrams: 05/26/19 05:04 05/26/19 05:04 Assess/Plan/Problems-Billing Assessment: 68 y/o female with history of debulking surgery for cervical cancer, who presented with acute onset of abdominal pain, found to have small bowel obstruction. - Patient Problems (1) Small bowel obstruction Current Visit: Yes Status: Acute Code(s): K56.609 - UNSP INTESTNL OBST, UNSP TO PARTIAL VERSUS COMPLETE OBST SNOMED Code(s): 375069293 Comment: - causes could be surgical adhesion from previous debulking surgery - first episode ever - start clear liquid diet, probably can advance to full liquid diet. - off ngt today (2) Headache Current Visit: Yes Status: Acute Code(s): R51 - HEADACHE SNOMED Code(s): 78700824 Comment: - tension headache likely - iv ketorolac prn - resolved (3) DVT (deep venous thrombosis) Current Visit: Yes Status: Acute Code(s): I82.409 - ACUTE EMBOLISM AND THOMBOS UNSP DEEP VN UNSP LOWER EXTREMITY SNOMED Code(s): 433344692 Comment: sc Lovenox Status and Disposition: Inpatient Medicine. Attestation Documenting Resident: Allie Dominique Supervising Physician: Candelaria Mcgrath Attestation: This service has been performed in part by a resident under the direction of a teaching physician.I, Candelaria Mcgrath, performed the service, or was physically present during the critical, or howard portions of the service, furnished by the resident. I participated in the management of the patient.
[2019-05-27] MEDS ORDERED: diPHENhydraMINE PO* 50 MG PO PRN (18:17)
[2019-05-27] MEDS ORDERED: Senna TAB 8.6 mg* TAB PO PRN (18:19)
[2019-05-27] MEDS ORDERED: Magnesium Hydroxide LIQ* 30 ML UDC PO PRN (18:19)
[2019-05-27] MEDS: Ondansetron INJ* 2 MG/ML VIAL IV PRN (18:58)
[2019-05-27] MEDS ORDERED: Lactated Ringers 1000 ML Bag* 1,000 ML IV ONE (19:00)
[2019-05-27] MEDS ORDERED: Lactated Ringers 1000 ML Bag* 1,000 ML IV SCH (19:00)
[2019-05-27] MEDS: ALPRAZolam TAB* 0.5 MG PO SCH (20:26)
[2019-05-27] MEDS ORDERED: Lisinopril TAB* 10 MG PO SCH (21:00)
[2019-05-28] MEDS: Ondansetron INJ* 2 MG/ML VIAL IV PRN (06:23)
[2019-05-28 06:30] LABS: ABS Lymphocytes 0.3 10^3/ul (1.0-4.8); ABS Monocytes 0.3 10^3/ul (0-0.8); ABS Neutrophils 2.9 10^3/ul (1.5-7.7); Eosinophil % 0.1 %; Hematocrit 34 % (35-47); Hemoglobin 11.4 g/dL (12.0-16.0); Lymphocyte % 7.9 %; Mean Corpuscular HGB Conc 34 g/dL (31-36); Mean Corpuscular Hemoglobin 30 pg (27-31); Mean Corpuscular Volume 88 fL (80-97); Mean Platelet Volume 8.1 fL (7.4-10.4); Platelet Count 210 10^3/uL (150-450); Red Blood Count 3.82 10^6 /uL (3.70-4.87); Red Cell Distribution Width 13 % (10-15); White Blood Count 3.4 10^3/uL (3.5-10.8)
[2019-05-28 06:44] LABS: BUN/Creatinine Ratio 40.5 (8-20); Calcium 9.6 mg/dL (8.6-10.3); EGFR African American 81.1 (>60); Potassium 3.3 mmol/L (3.5-5.0)
[2019-05-28] MEDS ORDERED: Lactated Ringers 1000 ML Bag* 1,000 ML IV SCH (08:00)
[2019-05-28] MEDS: KCL 10 MEQ/50 ML IVPREMIX* 10 MEQ/50 ML BAG IV SCH ×2 (08:30→15:30)
[2019-05-28] MEDS ORDERED: Aspirin 81 mg CHEW TAB* 81 MG TAB.CHEW PO SCH (09:00)
[2019-05-28] MEDS: Lactated Ringers 1000 ML Bag* 1,000 ML IV ONE ×2 (09:10→16:51)
[2019-05-28] MEDS: ALPRAZolam TAB* 0.5 MG PO SCH ×2 (09:40→15:12)
--- NOTE | 2019-05-28 10:20 | PN ---
Progress Note - Progress Note Date of Service: 05/28/19 SOAP: Subjective: Did well yesterday with liquids and was passing large amounts of gas However, last night developed nausea with vomiting and recurrent abdominal pain- no further flatus Now complaining of lower abdominal pain Objective: Temp Pulse Resp BP Pulse Ox 98.8 F 94 14 140/65 98 05/28/19 07:58 05/28/19 07:58 05/28/19 07:58 05/28/19 07:58 05/28/19 07:58 Intake & Output 05/26/19 05/27/19 05/28/19 05/29/19 06:59 06:59 06:59 06:59 Intake Total 0021 791 9647 Output Total 1000 1650 825 175 Balance 872 -669 4315 -175 Intake: IV Fluids 4080 682 9728 LR 1000 NS (0.9%) 1872 981 980 Oral 0 0 3160 Output: NG Tube Drainage Amount 500 1150 Urine 500 500 625 175 Emesis 200 Other: Estimated Void Large # Voids 1 PEX: Comfortable, lying on side Lungs are clear Abd is distended and firmer-decreased bowel sounds throughout. More distension inferiorly-lower quadrants with tenderness with some guarding, no peritoneal irritation. Laboratory Results - last 24 hr 05/26/19 05/26/19 05/28/19 05:04 05:04 06:21 WBC 3.4 L RBC 3.82 Hgb 11.4 L Hct 34 L MCV 88 MCH 30 MCHC 34 RDW 13 Plt Count 210 MPV 8.1 Neut % (Auto) 84.4 Lymph % (Auto) 7.9 [place] % (Auto) 7.4 Eos % (Auto) 0.1 Baso % (Auto) 0.2 Absolute Neuts (auto) 2.9 Absolute Lymphs (auto) 0.3 L Absolute Monos (auto) 0.3 Absolute Eos (auto) 0.0 Absolute Basos (auto) 0.0 Absolute Nucleated RBC 0.0 Nucleated RBC % 0.0 Sodium 141 Potassium 3.7 Chloride 109 Carbon Dioxide 25 Anion Gap 7 BUN 22 Creatinine 0.88 Est GFR ( Amer) 76.9 Est GFR (Non-Af Amer) 63.5 BUN/Creatinine Ratio 25.0 H Glucose 111 H Hemoglobin A1c 5.5 Calcium 8.9 Iron 36 L TIBC 308 % Saturation 12 L Unsat Iron Binding < 293 Transferrin 220 Ferritin 40.9 Vitamin B12 497 Folate > 20.00 05/28/19 06:21 WBC RBC Hgb Hct MCV MCH MCHC RDW Plt Count MPV Neut % (Auto) Lymph % (Auto) [place] % (Auto) Eos % (Auto) Baso % (Auto) Absolute Neuts (auto) Absolute Lymphs (auto) Absolute Monos (auto) Absolute Eos (auto) Absolute Basos (auto) Absolute Nucleated RBC Nucleated RBC % Sodium 142 Potassium 3.3 L Chloride 103 Carbon Dioxide 27 Anion Gap 12 H BUN 34 H Creatinine 0.84 Est GFR ( Amer) 81.1 Est GFR (Non-Af Amer) 67.0 BUN/Creatinine Ratio 40.5 H Glucose 137 H Hemoglobin A1c Calcium 9.6 Iron TIBC % Saturation Unsat Iron Binding Transferrin Ferritin Vitamin B12 Folate AXR 05/28 reviewed--air fluid levels, consistent with SBO Assessment: SBO-not improving. She started passing flatus yesterday and tolerated some liquids but overnight developed N/V and abdominal distension. Exam today shows increased tenderness lower quadrants. She has failed non-operative management of this SBO and with degree of pain and tenderness today and development of N/V, I feel an exploratory laparotomy is indicated today. I do not believe there is a role for repeat CT scan at this point. I discussed with her and her -they understand and agree to proceed. Plan: Exploratory laparotomy, possible bowel resection today. Procedure was discussed with patient and her and the risks of, but not limited to, of bleeding, infection, abscess, injury to peritoneal and retroperitoneal structures, bowel resection, possible ostomy, anastomotic leak, sepsis, blood clots and anesthesia were all explained.
[2019-05-28] MEDS ORDERED: fentaNYL* 50 MCG/ML 2 ML VIAL (100 MCG VIAL) ONE ×2 (10:55→12:59)
[2019-05-28] MEDS ORDERED: ceFOXitin 2 GM IVPREMIX* 2 GM/50 ML BAG ONE (10:55)
[2019-05-28] MEDS ORDERED: ceFOXitin 2 GM IVPREMIX* 2 GM/50 ML BAG IVPB ONE (11:00)
--- NOTE | 2019-05-28 11:02 | PN ---
Subjective Date of Service: 05/28/19 Interval History: Patient tolerated last dinner with full liquid diet also passed lots of flatus yesterday. But this morning 6am, she started vomiting and worsening abdominal pain. She felt terrible when I saw her. She complained of abdominal pain and nauseous. No fever. Objective Active Medications: Alprazolam (Xanax Tab*) 1 mg PO TID [facility] Last Admin: 05/28/19 09:40 Dose: Not Given Diphenhydramine HCl (Benadryl Po*) 50 mg PO BEDTIME PRN PRN Reason: INSOMNIA Lactated Ringer's (Lactated Ringers 1000 Ml Bag*) 1,000 mls @ 100 mls/hr IV ONCE ONE Stop: 05/28/19 17:35 Last Admin: 05/28/19 09:10 Dose: 100 mls/hr Cefoxitin Sodium (Mefoxin 2gm Ivpremix*) 2 gm in 50 mls @ 100 mls/hr IVPB ONCALL ONE Stop: 05/28/19 11:29 Lisinopril (Prinivil Tab*) 20 mg PO BEDTIME [facility] Last Admin: 05/27/19 20:26 Dose: 20 mg Magnesium Hydroxide (Milk Of Magnesia Liq*) 30 ml PO Q6H PRN PRN Reason: CONSTIPATION Last Admin: 05/27/19 20:26 Dose: 30 ml Ondansetron HCl (Zofran Inj*) 4 mg IV Q4H PRN PRN Reason: NAUSEA/VOMITING Last Admin: 05/28/19 06:23 Dose: 4 mg Senna (Senokot 8.6 Mg Tab*) 1 tab PO BEDTIME PRN PRN Reason: CONSTIPATION Last Admin: 05/27/19 20:26 Dose: 1 tab Vital Signs - 8 hr 05/28/19 05/28/19 05/28/19 03:56 06:33 07:58 Temperature 99.0 F 97.8 F 98.8 F Pulse Rate 93 94 94 Respiratory 18 17 14 Rate Blood Pressure 136/62 151/76 140/65 (mmHg) O2 Sat by Pulse 97 98 98 Oximetry 05/28/19 08:30 Temperature Pulse Rate Respiratory 14 Rate Blood Pressure (mmHg) O2 Sat by Pulse Oximetry Oxygen Devices in Use Now: None Exam: GEN: uncomfortable looking. HEART: S1S2, no murmur Lung: clear Abdomen: tenderness over lower quandrant, possible guarding. bowel sound not active. Result Diagrams: 05/28/19 06:21 05/28/19 06:21 Assess/Plan/Problems-Billing Assessment: 68 y/o female with history of debulking surgery for cervical cancer, who presented with acute onset of abdominal pain, found to have small bowel obstruction. - Patient Problems (1) Small bowel obstruction Current Visit: Yes Status: Acute Code(s): K56.609 - UNSP INTESTNL OBST, UNSP TO PARTIAL VERSUS COMPLETE OBST SNOMED Code(s): 041833152 Comment: - causes could be surgical adhesion from previous debulking surgery - first episode ever - worsening symptoms today despite medical management - will have exploratory lap today - iv fluid,npo (2) Headache Current Visit: Yes Status: Acute Code(s): R51 - HEADACHE SNOMED Code(s): 11245262 Comment: - tension headache likely - resolved (3) DVT (deep venous thrombosis) Current Visit: Yes Status: Acute Code(s): I82.409 - ACUTE EMBOLISM AND THOMBOS UNSP DEEP VN UNSP LOWER EXTREMITY SNOMED Code(s): 678818197 Comment: sc Lovenox Status and Disposition: Inpatient Medicine. Attestation Documenting Resident: Allie Dominique Supervising Physician: Candelaria Mcgrath Attestation: This service has been performed in part by a resident under the direction of a teaching physician.I, Candelaria Mcgrath, performed the service, or was physically present during the critical, or desouza portions of the service, furnished by the resident. I participated in the management of the patient.
[2019-05-28] MEDS ORDERED: KETAMINE HCL* 50 MG/ML 10 ML VIAL ONE (11:06)
[2019-05-28] MEDS ORDERED: Lidocaine 2% PF * 5 ML VIAL ONE (11:07)
[2019-05-28] MEDS ORDERED: Propofol* 10 MG/ML 20 ML BTL ONE (11:09)
[2019-05-28] MEDS ORDERED: Rocuronium* 10 MG/ML VIAL ONE (11:10)
[2019-05-28] MEDS ORDERED: Scopolamine 1.5 mg* PATCH ONE (11:18)
[2019-05-28] MEDS ORDERED: Bupivacaine 0.25% SDV PF* 10 ML VIAL INJ ONE (11:33)
[2019-05-28] MEDS ORDERED: Glycopyrrolate IV* 0.2 MG/ML 1 ML VIAL ONE ×2 (13:00→13:04)
[2019-05-28] MEDS ORDERED: Ketorolac INJ* 30 MG/ML 1 ML VIAL ONE (13:00)
[2019-05-28] MEDS ORDERED: Dexamethasone IV* 4 MG/ML 1 ML (4 MG) ONE (13:00)
[2019-05-28] MEDS ORDERED: Ondansetron INJ* 2 MG/ML VIAL ONE (13:00)
[2019-05-28] MEDS ORDERED: Neostigmine Methylsulfate* 3 MG/3 ML SYRINGE ONE (13:00)
--- NOTE | 2019-05-28 13:28 | OP ---
Operative Report - Blank - Operative Report Date of Operation: 05/28/19 Note: OPERATIVE REPORT Pre-op: Small bowel obstruction Post-Op: Same, secondary to adhesiona Procedure:Exploratory laparotomy, lysis of adhesions Surgeon: MD Jenise Asst: ISAC Jarrell Anes: general with local, Dr. Gaona IVF:1.8 liters of LR EBL:50 cc's Specimen: None Drain: none Wound: One Findings: Adhesive bands causing obstruction To PACU
[2019-05-28] MEDS ORDERED: Naloxone* 0.4 MG/ML 1 ML VIAL IV PUSH PRN (13:29)
[2019-05-28] MEDS ORDERED: fentaNYL* 50 MCG/ML 2 ML VIAL (100 MCG VIAL) IV PRN (13:34)
[2019-05-28] MEDS ORDERED: Naloxone* 0.4 MG/ML 1 ML VIAL IV PRN (13:34)
[2019-05-28] MEDS ORDERED: DiMENhydriNATE IV* 50 MG/ML VIAL IV PUSH PRN (13:34)
[2019-05-28] MEDS ORDERED: LORazepam INJ* 2 MG/ML 1 ML VIAL IV PUSH PRN (14:59)
[2019-05-28] MEDS ORDERED: Lorazepam PYXIS KEY PRN (14:59)
[2019-05-28] MEDS ORDERED: Morphine PCA ADULT* 5 MG/ML 30 ML PCA SCH (15:00)
--- NOTE | 2019-05-28 15:56 | OP ---
DATE OF OPERATION: 05/28/19 - ROOM #340 DATE OF : 46 SURGEON: Jose Angel Burden MD FAMILY MANAGER: ISAC Avila ANESTHESIOLOGIST: Dr. Gaona. ANESTHESIA: General with local. PRE-OP DIAGNOSIS: Small bowel obstruction. POST-OP DIAGNOSIS: Small bowel obstruction secondary to intraabdominal adhesions. OPERATIVE PROCEDURE: Exploratory laparotomy with lysis of adhesions. ESTIMATED BLOOD LOSS: 50 cc. IV FLUIDS: 1.8 L of crystalloid. WOUND CLASSIFICATION: I. COMPLICATIONS: None. DRAINS: None. SPECIMENS: None. FINDINGS: Tight adhesive band involving the mesentery and a large loop of bowel in the distal jejunum causing obstruction. Bowel was viable. Resection was not indicated. DESCRIPTION OF PROCEDURE: Written and informed consent was obtained, the abdomen was marked with indelible link and preoperative antibiotics were administered. The patient was taken to the operating room and placed in the supine position. Sequential compression devices and warming blanket were applied. General anesthesia was administered and a Campbell catheter and nasogastric tube were inserted. The abdomen was prepped and draped in the usual sterile fashion. Time-out verification was completed. A vertical incision was made just above the umbilicus down to the pubis and the peritoneal cavity was entered under direct vision. There were some adhesions to the anterior abdominal wall from small bowel from previous surgeries, which were taken down sharply with no obvious serosal injury. It was evident that there were two loops of small bowel that were markedly distended, but viable, but somewhat purplish in color from distention and we were able to visualize this better. There was a very tight band around the base of the mesentery from an associated small bowel loop causing essentially an internal hernia. Once I was able to identify the band, this was cut and this relieved the bowel. There were several other adhesions from the previous surgeries that were lysed to more definitively visualize the entire length of bowel. This was about the distal jejunum and this was the obvious site of constriction as the distal bowel was completely collapsed, running down to the terminal ileum. There were two "imprints" from the adhesive band in two separate areas of the small bowel and the more proximal one pinked up nicely and the more distal one was somewhat left more of an impression and I did imbricate this with several transversally oriented interrupted 3-0 silk sutures. I did not believe that a resection was indicated. All of the congested bowel pinked up nicely and showed no evidence of ischemia and no other intervention was performed. The abdomen was irrigated and hemostasis was assured. All needle, sponge and laparotomy pad counts were reported to be as correct. A midline incision was closed with interrupted #1 Vicryl suture. The skin was approximated with a stapling device. Dry sterile dressings were applied. The patient tolerated the procedure well and was taken to the recovery room in stable condition. [id number]/[facility] #: [id number] ISIDRA
[2019-05-28] MEDS ORDERED: diPHENhydraMINE IV* 50 MG/ML 1 ml VIAL (BENADRYL) IV PRN (17:03)
[2019-05-28] MEDS: D5W 1/2 NS KCl 20 Meq 1000 ML* 1,000 ML IV SCH ×2 (17:09→23:09)
[2019-05-28 17:16] LABS: Urine Appearance Clear; Urine Bilirubin Negative (Negative); Urine Blood Negative (Negative); Urine Color Yellow; Urine Glucose 1+(50 mg/dL) (Negative); Urine Ketones 2+ (Negative); Urine Nitrite Negative (Negative); Urine Protein Negative (Negative); Urine Specific Gravity 1.023 (1.010-1.030); Urine Urobilinogen Negative (Negative)
[2019-05-28] MEDS ORDERED: Famotidine IV* 10 MG/ML 2 ML (20 mg) IV SLOW PU ONE (20:04)
--- NOTE | 2019-05-28 20:07 | PN ---
Hospitalist Progress Note Date of Service: 05/28/19 COPRA SAMPLER paged by RN to evaluate new onset rash. Patient laying comfortably in bed, NAD, but reports itching and burning to chest and under breasts. Reports history of sensitive skin, uses triamcinolone cream at home with good effect. Is s/p surgery today for SBO with red maculopapular rash to chest, under breasts , to abdomen and into groin (not on back). No respiratory distress, lungs clear. May be localized reaction to cleaning agent or drapes for surgery. Give benadryl, famotidine now. Continue with prn triamcinolone and prn diphenhydramine. Monitor for resp distress or spread of rash. POC reviewed with nursing.
[2019-05-28] MEDS: diPHENhydraMINE IV* 50 MG/ML 1 ml VIAL (BENADRYL) IV PRN (20:13)
[2019-05-28] MEDS ORDERED: Lisinopril TAB* 10 MG PO SCH (21:00)
[2019-05-28] MEDS: Triamcinolone 0.025% OINT * 15 GM TUBE TOPICAL SCH (21:20)
[2019-05-29] MEDS: diPHENhydraMINE IV* 50 MG/ML 1 ml VIAL (BENADRYL) IV PRN ×3 (02:26→21:50)
[2019-05-29] MEDS: Ondansetron INJ* 2 MG/ML VIAL IV PRN ×2 (02:32→07:55)
[2019-05-29] MEDS: D5W 1/2 NS KCl 20 Meq 1000 ML* 1,000 ML IV SCH ×4 (05:06→17:39)
[2019-05-29 05:13] LABS: ABS Lymphocytes 0.5 10^3/ul (1.0-4.8); ABS Monocytes 0.8 10^3/ul (0-0.8); ABS Neutrophils 2.1 10^3/ul (1.5-7.7); Eosinophil % 0.3 %; Hematocrit 28 % (35-47); Hemoglobin 9.4 g/dL (12.0-16.0); Mean Corpuscular HGB Conc 34 g/dL (31-36); Mean Corpuscular Hemoglobin 30 pg (27-31); Mean Corpuscular Volume 88 fL (80-97); Mean Platelet Volume 8.4 fL (7.4-10.4); Platelet Count 161 10^3/uL (150-450); Red Blood Count 3.14 10^6 /uL (3.70-4.87); Red Cell Distribution Width 13 % (10-15); White Blood Count 3.4 10^3/uL (3.5-10.8)
[2019-05-29 05:34] LABS: Calcium 8.2 mg/dL (8.6-10.3); EGFR African American 82.2 (>60); Magnesium 1.8 mg/dL (1.9-2.7); Potassium 3.6 mmol/L (3.5-5.0)
[2019-05-29] MEDS ORDERED: Magnesium Sulfate 2 GM IV* 2 GM/50 ML BAG IVPB ONE (08:30)
[2019-05-29] MEDS ORDERED: Acetaminophen TAB* 325 MG PO PRN (09:02)
[2019-05-29] MEDS: Triamcinolone 0.025% OINT * 15 GM TUBE TOPICAL SCH ×2 (09:13→21:51)
[2019-05-29] MEDS ORDERED: NS 0.9% 1000 ML** 1,000 ML IV ONE (09:27)
[2019-05-29] MEDS ORDERED: HYDROmorphone INJ1* 1 MG/ML SYRINGE IV SLOW PU PRN (09:34)
--- NOTE | 2019-05-29 09:42 | PN ---
Subjective Date of Service: 05/29/19 Interval History: Underwent ex-lap with CLARY yesterday. Tolerated procedure well. Experienced maculopapular rash over chest afterwards - received H2 blockers with significant improvement. Denying itchiness now. Rash improved. Pt sitting in chair, reports mild abd pain. Denies flatus, BM. Requests Campbell out, and discontinuation of Pulse Ox and PROVIDER RELATIONS ADVOCATE. Prefers non-narcotics. Also with sore throat from intubation. Denies CP, SOB. Motivated to walk today. Still with low UOP, likely hypovolemia in setting of procedure, NG tube, and insensible loses. Will give bolus, increase maintenance IVF, and continue to monitor closely. Objective Active Medications: Acetaminophen (Tylenol Tab*) 975 mg PO Q8H PRN PRN Reason: PAIN - MILD Diphenhydramine HCl (Benadryl Iv*) 25 mg IV Q6H PRN PRN Reason: SLEEP Last Admin: 05/29/19 02:26 Dose: 25 mg Enoxaparin Sodium (Lovenox(*)) 40 mg SUBCUT BEDTIME SHONDA Hydromorphone HCl (Dilaudid Inj*) 1 mg IV SLOW PU Q4H PRN PRN Reason: PAIN - SEVERE Potassium Chloride/Dextrose (D5w 1/2 Ns Kcl 20 Meq 1000 Ml*) 1,000 mls @ 250 mls/hr IV PER RATE SHONDA Sodium Chloride (Ns 0.9% 1000 Ml) 1,000 mls @ 1,000 mls/hr IV .PER RATE ONE Stop: 05/29/19 10:26 Ketorolac Tromethamine (Toradol Inj*) 15 mg IV PUSH Q6H PRN PRN Reason: PAIN - MODERATE Lorazepam (Ativan Inj*) 0.5 mg IV PUSH Q4H PRN PRN Reason: ANXIETY Last Admin: 05/28/19 23:08 Dose: 0.5 mg Miscellaneous (Ativan Pyxis Mcdonough) 1 ea N/A .ATIVAN IV MCDONOUGH PRN PRN Reason: PYXIS MCDONOUGH Naloxone HCl (Narcan*) 0.08 mg IV PUSH .Q2MIN PRN PRN Reason: OVERSEDATION Ondansetron HCl (Zofran Inj*) 4 mg IV Q4H PRN PRN Reason: NAUSEA/VOMITING Last Admin: 05/29/19 07:55 Dose: 4 mg Throat Lozenges (Chloraseptic Alicia*) 1 alicia PO Q6H PRN PRN Reason: SORE THROAT Triamcinolone Acetonide (Triamcinolone 0.025% Oint *) 1 applic TOPICAL BID SHONDA Last Admin: 05/29/19 09:13 Dose: Not Given Vital Signs - 8 hr 05/29/19 05/29/19 05/29/19 02:00 02:26 04:00 Temperature Pulse Rate Respiratory 14 14 14 Rate Blood Pressure (mmHg) O2 Sat by Pulse 98 98 Oximetry 05/29/19 05/29/19 05/29/19 04:03 04:19 05:49 Temperature 97.5 F Pulse Rate 62 Respiratory 16 16 14 Rate Blood Pressure 115/68 (mmHg) O2 Sat by Pulse 98 100 Oximetry 05/29/19 05/29/19 05/29/19 06:50 08:00 09:30 Temperature 98.1 F Pulse Rate 68 80 Respiratory 14 16 Rate Blood Pressure 129/64 (mmHg) O2 Sat by Pulse 100 100 100 Oximetry Appearance: tired appearing woman in NAD, pleasant, interactive Eyes: No Scleral Icterus Ears/Nose/Mouth/Throat: Clear Oropharnyx, Mucous Membranes Moist, - - +NGT Neck: NL Appearance and Movements; NL JVP, Trachea Midline Respiratory: Symmetrical Chest Expansion and Respiratory Effort, Clear to Auscultation Cardiovascular: NL Sounds; No Murmurs; No JVD, RRR Abdominal: - - midline surgical incision covered in bandage c/d/i, mild diffuse abd tenderness, hypoactive bowel sounds Extremities: - - trace ankle edema b/l Skin: - - scant maculopapular rash over anterior trunk Result Diagrams: 05/29/19 04:52 05/29/19 04:52 Microbiology and Other Data: Microbiology 05/25/19 12:35 Urine Culture - Final Urine Assess/Plan/Problems-Billing Assessment: 68W with history of ovarian cancer s/p debulking surgery and in remission, HTN, anxiety, who presented with acute onset of abdominal pain, found to have small bowel obstruction, now s/p CLARY on 05/28, with post-op ileus. - Patient Problems (1) Small bowel obstruction Comment: Likely due to surgical adhesion from previous debulking surgery, first episode. Now s/p CLARY on 05/28, with post-op ileus. - IV fluid, NPO with sips of water - continue NGT to suction - APAP prn mild pain, ketorolac prn moderate, and hydromorphone prn severe pain - ambulate as tolerated - monitor for flatus/BM - appreciate surgery input (2) Anxiety Comment: - holding home alprazolam PO - cont on lorazepam IV prn anxiety (3) HTN (hypertension) Comment: - can restart home lisinopril 20mg when needed (4) Headache Comment: Tension headache vs caffeine withdrawal - pain meds as above (5) DVT (deep venous thrombosis) Comment: sc Lovenox Status and Disposition: Inpatient Medicine.
--- NOTE | 2019-05-29 11:25 | PN ---
Progress Note - Progress Note Date of Service: 05/29/19 SOAP: Subjective: Doing well, pain adequately controlled OOB in chair Objective: Temp Pulse Resp BP Pulse Ox 98.1 F 80 16 129/64 100 05/29/19 08:00 05/29/19 09:30 05/29/19 08:00 05/29/19 08:00 05/29/19 09:30 Intake & Output 05/27/19 05/28/19 05/29/19 05/30/19 06:59 06:59 06:59 06:59 Intake Total 981 5140 4092 985 Output Total 7187 264 8711 100 Balance -669 4315 967 885 Intake: IV Fluids 981 1980 4092 985 D5W 1/2 NS 20 meq KCL 980 930 LR 1000 2980 NS (0.9%) 981 980 NS 50ML, Cefoxitin 2G 50 kcl 82 mag 55 Oral 0 3160 Output: NG Tube Drainage Amount 1150 2000 Urine 500 625 175 Smith 400 100 Emesis 200 550 Other: Estimated Blood Loss minimal ebl Comment PEX: Comfortable Lungs are clear Abd is soft and slightly distended. Dressing intact Ext without edema Assessment: POD#1 s/p exlap for SBO, lysis of adhesions for internal hernia Post-op ileus Plan: D/C smith IVF D/C REPORT ANALYST, add toradol Continue NGT SCD's H2 yaa and subq heparin
[2019-05-29] MEDS: Benzocaine/Menthol LOZ* 1 LOZENGE PO PRN ×2 (11:36→17:45)
[2019-05-29] MEDS: Ketorolac INJ* 15 MG/ML 1 ML VIAL IV PUSH PRN (12:36)
[2019-05-29] MEDS: LORazepam INJ* 2 MG/ML 1 ML VIAL IV PUSH PRN (16:34)
[2019-05-29] MEDS: Enoxaparin(*) 40 MG/0.4 ML SYR SUBCUT SCH (21:51)
[2019-05-29] MEDS: Famotidine IV* 10 MG/ML 2 ML (20 mg) IV SLOW PU SCH (21:51)
[2019-05-30] MEDS: D5W 1/2 NS KCl 20 Meq 1000 ML* 1,000 ML IV SCH (01:04)
[2019-05-30] MEDS: Ketorolac INJ* 15 MG/ML 1 ML VIAL IV PUSH PRN ×2 (03:56→23:40)
[2019-05-30 05:37] LABS: Hematocrit 28 % (35-47); Hemoglobin 9.4 g/dL (12.0-16.0); Mean Corpuscular HGB Conc 34 g/dL (31-36); Mean Corpuscular Hemoglobin 30 pg (27-31); Mean Corpuscular Volume 88 fL (80-97); Mean Platelet Volume 8.4 fL (7.4-10.4); Platelet Count 169 10^3/uL (150-450); Red Blood Count 3.15 10^6 /uL (3.70-4.87); Red Cell Distribution Width 12 % (10-15); White Blood Count 3.3 10^3/uL (3.5-10.8)
[2019-05-30 05:52] LABS: BUN/Creatinine Ratio 31.3 (8-20); Calcium 7.9 mg/dL (8.6-10.3); EGFR African American 105.3 (>60); Magnesium 1.8 mg/dL (1.9-2.7); Potassium 3.4 mmol/L (3.5-5.0)
[2019-05-30] MEDS: D5W 1/2 NS 40 Meq KCL 1000 ML* 1,000 ML IV SCH ×2 (08:25→21:03)
[2019-05-30] MEDS: Famotidine IV* 10 MG/ML 2 ML (20 mg) IV SLOW PU SCH ×2 (08:27→21:04)
[2019-05-30] MEDS: Triamcinolone 0.025% OINT * 15 GM TUBE TOPICAL SCH ×3 (08:27→21:04)
--- NOTE | 2019-05-30 09:43 | PN ---
Progress Note - Progress Note Date of Service: 05/30/19 SOAP: Subjective:very sore throat from NG;minimal incisional pain;OOB and ambulating; passed small amt flatus;a little tearful [] Objective: Vital Signs Temp 98.5 F 05/30/19 07:46 Pulse 92 05/30/19 07:46 Resp 20 05/30/19 07:46 BP 145/83 05/30/19 07:46 Pulse Ox 97 05/30/19 07:46 Intake & Output 05/29/19 05/30/19 05/30/19 18:59 06:59 18:59 Intake Total 2959 975 694 Output Total 400 500 375 Balance 2559 475 319 Intake: IV Fluids 2959 975 694 D5W 1/2 NS 20 meq KCL 1924 975 694 NS (0.9%) 980 mag 55 Output: NG Tube Drainage Amount 50 175 Urine 250 500 200 Campbell 100 lungs:clear bilat;heart:RRR;abd:hypoactive bs;soft;incision c/d/i;appropriate tenderness;ext;nontender calves,no edema;skin:mild maculopapular rash anterior trunk Laboratory Results - last 24 hr 05/30/19 05/30/19 05:12 05:12 WBC 3.3 L RBC 3.15 L Hgb 9.4 L Hct 28 L MCV 88 MCH 30 MCHC 34 RDW 12 Plt Count 169 MPV 8.4 Sodium 136 Potassium 3.4 L Chloride 106 Carbon Dioxide 27 Anion Gap 3 BUN 21 Creatinine 0.67 Est GFR ( Amer) 105.3 Est GFR (Non-Af Amer) 87.0 BUN/Creatinine Ratio 31.3 H Glucose 115 H Calcium 7.9 L Magnesium 1.8 L [] Assessment:POD#2 s/p ex lap CLARY for SBO/internal hernia;starting to pass flatus [] Plan:clamp NG for 4h and ck for residual and then possibly d/c NG chloraseptic spray for sore throat ambulate,inspiron triamcinolone to rash []
[2019-05-30] MEDS: Phenol 1.4% Spray* 177 ML BTL MT PRN ×3 (09:56→23:37)
[2019-05-30] MEDS: diPHENhydraMINE IV* 50 MG/ML 1 ml VIAL (BENADRYL) IV PRN ×2 (09:57→18:14)
[2019-05-30] MEDS: LORazepam INJ* 2 MG/ML 1 ML VIAL IV PUSH PRN ×2 (09:59→18:14)
--- NOTE | 2019-05-30 14:05 | PN ---
Progress Note - Progress Note Date of Service: 05/30/19 Note: Addendum: Pt reported flatus, residual in NG tube after clamping was 50cc, so NG tube was removed Patient encuraged to have an occasional hard candy or cough drop, ice chips. Diet will be slowly advanced with return of bowel function. Holding clears until increase in bowel function. This was discussed with patient and her . All questions answered
--- NOTE | 2019-05-30 15:33 | PN ---
Hospitalist Progress Note Date of Service: 05/30/19 S/IE: Winifred Montague is a 68 y/o female with a history of ovarian cancer treated by an extensive debulking surgery, HTN and anxiety admitted to the hospitalist service with complaints of abdominal pain, nausea and constipation suspicious for a small bowel obstruction who failed conservative management and is now s/p exploratory laparatomy with lysis of adhesions performed 05/28/19. NG tube was in place this AM and has now been removed. One ice chip diet per surgery. Reports passing flatus since surgery, no BM yet. Complaining of laryngeal discomfort presumably from ET tube use during surgery. Also complaining of itching and burning fine maculopapular rash with widespread coverage of the chest, abdomen and groin, particularly dense under the breasts, as well as some localized areas on the lower extremities that presented post- surgery on 05/28/19. Continues to deny CP, SOB, hemoptysis, fever, and chills. O: PE: 3 Temp Pulse Resp BP Pulse Ox 98.1 F 82 16 126/44 96 05/30/19 16:16 05/30/19 16:16 05/30/19 16:16 05/30/19 16:16 05/30/19 16:16 General: AAO4x, sitting up in bed in no acute distress, pleasantly cooperates with interview and examination. HEENT: Head atraumatic, normocephalic. Hearing grossly intact. PERRLA, EOMI. NG tube in place - left naris. Neck supple. No JVD. Oral mucosa pink and dry. Chest: Breathing unlabored with normal symmetric chest wall movement. Lungs clear and equal to auscultation bilaterally. Regular heart rhythm with normal S1 /S2. No rubs, clicks or gallops. Diffuse fine red maculopapular rash widespread on chest with high density in the intertriginous areas of the breasts. Abdomen: Soft, non-distended. Mild tenderness to palpation. Normal bowel sounds appreciated. Surgical incision from umbilicus to pubis covered with clean dressing and without signs of infection. Diffuse fine red maculopapular rash present. Extremities: UE and LE distal CMS intact b/l. Some localized areas of fine red maculopapular rash present on the medial mid-tibial surfaces b/l. Abnormal Lab Values: 3 05/30/19 05/30/19 05:12 05:12 WBC 3.3 L RBC 3.15 L Hgb 9.4 L Hct 28 L Potassium 3.4 L BUN/Creatinine Ratio 31.3 H Glucose 115 H Calcium 7.9 L Magnesium 1.8 L A/I: 68 y/o female with a history of ovarian cancer treated by an extensive debulking surgery, HTN and anxiety failed conservative management of SBO now s/p exploratory laparotomy with lysis of adhesions. P: SBO: Dx confirmed by exploratory laparatomy Tight adhesive band involving the mesentery and a large loop of bowel in the jejunum was cut relieving the bowel obstruction - surgery by Dr. Burden NG tube removed today per surgery Ice chip diet today per surgery Possible advance to clear liquid diet tomorrow PRN IV ketorolac for pain control 15 mg Q6H max 10 doses Continue to monitor for passage of additional flatus and first post-surgical bowel movement Continue NS maintenance IV Laryngeal discomfort: Suspect due to ET tube use during surgery Surgery ordered chloraseptic spray Re-evaluate tomorrow Rash: Itching, burning red diffuse maculopapular rash of unknown etiology. Considered allergic, autoimmune and infectious causes. Continue diphenhydramine, famotidine and triamcinolone therapy and re-evaluate tomorrow. Consider dermatology consultation if not significant improvement. Headache: Resolved, patient believes was due to use of opioid analgesia which she no longer requires Anxiety: Chronic condition normally managed with PO alprazolam PRN Continue in hospital management with lorazepam 0.5 mg IVP PRN Q4H Anemia: DDx: Asymptomatic normocytic anemia of unknown origin. Need more diagnostic information Iron deficiency anemia based upon low iron level. B12, ferritin, folate, TIBC all normal. Tx: Re-start 324 mg ferrous gluconate PO QD when no longer NPO Follow-up with PCP for repeat CBC Hyperglycemia: DDx: High suspicion for undiagnosed early stage DMII based upon high fasting BGT readings HgbA1C is 5.5%, no further action required at this time as BGT levels are acceptable in-hospital and HgbA1C is normal Encourage healthy diet and regular exercise as tolerated upon discharge Recommend follow-up with PCP for repeat HgbA1C at appropriate intervals Other CBC and chemistry abnormalities: Low WBC, RBC, Hgb, Hct, K, Ca, Mg findings possibly dilutional in nature Repleated K this AM Re-evaluate labs tomorrow and consider additional electrolyte replacement and / or consider other causes of low WBC count if needed
--- NOTE | 2019-05-30 17:20 | PN ---
Subjective Date of Service: 05/30/19 Interval History: Patient complained of new rash on anterior chest and right arm, also bilateral legs. She claimed that she had this rashes many times before, was seen by craft superintendent who suggested steroid cream which responded well. She claimed she was also given steroid tablet to stop it spreading. She had no abdominal pain, started to pass flatus afternoon time. Objective Active Medications: Acetaminophen (Tylenol Tab*) 975 mg PO Q8H PRN PRN Reason: PAIN - MILD Diphenhydramine HCl (Benadryl Iv*) 25 mg IV Q6H PRN PRN Reason: SLEEP Last Admin: 05/30/19 09:57 Dose: 25 mg Enoxaparin Sodium (Lovenox(*)) 40 mg SUBCUT BEDTIME [facility] Last Admin: 05/29/19 21:51 Dose: 40 mg Famotidine (Pepcid Iv*) 20 mg IV SLOW PU BID [facility] Last Admin: 05/30/19 08:27 Dose: 20 mg Hydromorphone HCl (Dilaudid Inj1s*) 1 mg IV SLOW PU Q4H PRN PRN Reason: PAIN - SEVERE Potassium Chloride/Dextrose (D5w 1/2 Ns 40 Meq Kcl 1000 Ml*) 1,000 mls @ 100 mls/hr IV PER RATE [facility] Last Admin: 05/30/19 08:25 Dose: 100 mls/hr Ketorolac Tromethamine (Toradol Inj*) 15 mg IV PUSH Q6H PRN PRN Reason: PAIN - MODERATE Last Admin: 05/30/19 03:56 Dose: 15 mg Lorazepam (Ativan Inj*) 0.5 mg IV PUSH Q8H PRN PRN Reason: ANXIETY Last Admin: 05/30/19 09:59 Dose: 0.5 mg Miscellaneous (Ativan Pyxis Howard) 1 ea N/A .ATIVAN IV HOWARD PRN PRN Reason: PYXIS HOWARD Naloxone HCl (Narcan*) 0.08 mg IV PUSH .Q2MIN PRN PRN Reason: OVERSEDATION Ondansetron HCl (Zofran Inj*) 4 mg IV Q4H PRN PRN Reason: NAUSEA/VOMITING Last Admin: 05/29/19 07:55 Dose: 4 mg Phenol/Menthol (Chloroseptic Throat [place]*) 1 spray MT TID PRN PRN Reason: SORE THROAT Last Admin: 05/30/19 13:29 Dose: 1 spray Triamcinolone Acetonide (Triamcinolone 0.025% Oint *) 1 applic TOPICAL BID [facility] Last Admin: 05/30/19 09:56 Dose: 1 applic Vital Signs - 8 hr 05/30/19 05/30/19 05/30/19 09:57 09:59 11:05 Temperature Pulse Rate Respiratory 16 16 16 Rate Blood Pressure (mmHg) O2 Sat by Pulse Oximetry 05/30/19 05/30/19 05/30/19 12:10 14:37 16:16 Temperature 98 F 98.1 F Pulse Rate 73 82 Respiratory 16 16 16 Rate Blood Pressure 146/66 126/44 (mmHg) O2 Sat by Pulse 96 Oximetry Oxygen Devices in Use Now: None Exam: Appearance: tired appearing woman in NAD, pleasant, interactive Eyes: No Scleral Icterus Ears/Nose/Mouth/Throat: Clear Oropharnyx, Mucous Membranes Moist, Neck: NL Appearance and Movements; NL JVP, Trachea Midline Respiratory: Symmetrical Chest Expansion and Respiratory Effort, Clear to Auscultation Cardiovascular: NL Sounds; No Murmurs; No JVD, RRR Abdominal: midline surgical incision covered in bandage c/d/i, mild diffuse abd tenderness, hypoactive bowel sounds Extremities: mild edema on hands and ankles Skin: morbiliform rashes on anterior chest and medial aspect of bilateral patiño, non blanchable Result Diagrams: 05/30/19 05:12 05/30/19 05:12 Microbiology and Other Data: Microbiology 05/25/19 12:35 Urine Culture - Final Urine Assess/Plan/Problems-Billing Assessment: 68W with history of ovarian cancer s/p debulking surgery and in remission, HTN, anxiety, who presented with acute onset of abdominal pain, found to have small bowel obstruction, now s/p CLARY on 05/28. - Patient Problems (1) Small bowel obstruction Current Visit: Yes Status: Acute Code(s): K56.609 - UNSP INTESTNL OBST, UNSP TO PARTIAL VERSUS COMPLETE OBST SNOMED Code(s): 883455510 Comment: Likely due to surgical adhesion from previous debulking surgery, first episode. Now s/p CLARY on 05/28, with post-op ileus. - IV fluid, NPO with sips of water - NGT removed as patient passed flatus. - APAP prn mild pain, ketorolac prn moderate, and hydromorphone prn severe pain - ambulate as tolerated - monitor for BM, will advance diet accordingly as per surgeon opinion - appreciate surgery input (2) Headache Current Visit: Yes Status: Acute Code(s): R51 - HEADACHE SNOMED Code(s): 45827390 Comment: Tension headache vs caffeine withdrawal - pain meds as above - resolved (3) Rash Current Visit: Yes Status: Acute Code(s): R21 - RASH AND OTHER NONSPECIFIC SKIN ERUPTION SNOMED Code(s): 098709117 Comment: - vasculitic rashes, concerning for autoimmune condition with its recurrent nature and good response to steroid - will check MATT. C3, C4 tomorrow. (4) DVT (deep venous thrombosis) Current Visit: Yes Status: Acute Code(s): I82.409 - ACUTE EMBOLISM AND THOMBOS UNSP DEEP VN UNSP LOWER EXTREMITY SNOMED Code(s): 959132487 Comment: sindy Lilly Status and Disposition: Inpatient Medicine. Attestation Documenting Resident: Allie Dominique Supervising Physician: Megan Coronado Attestation: This service has been performed in part by a resident under the direction of a teaching physician.I, Megan Coronado, performed the service, or was physically present during the critical, or howard portions of the service, furnished by the resident. I participated in the management of the patient.
[2019-05-30] MEDS: Enoxaparin(*) 40 MG/0.4 ML SYR SUBCUT SCH (21:03)
[2019-05-31] MEDS: diPHENhydraMINE IV* 50 MG/ML 1 ml VIAL (BENADRYL) IV PRN ×2 (04:12→10:17)
[2019-05-31] MEDS: D5W 1/2 NS 40 Meq KCL 1000 ML* 1,000 ML IV SCH (08:26)
[2019-05-31] MEDS: Famotidine IV* 10 MG/ML 2 ML (20 mg) IV SLOW PU SCH ×2 (08:27→22:07)
[2019-05-31] MEDS: Triamcinolone 0.025% OINT * 15 GM TUBE TOPICAL SCH ×2 (08:30→22:21)
[2019-05-31] MEDS ORDERED: D5W 1/2 NS 40 Meq KCL 1000 ML* 1,000 ML IV SCH (10:07)
[2019-05-31] MEDS: Ketorolac INJ* 15 MG/ML 1 ML VIAL IV PUSH PRN ×2 (10:15→19:35)
--- NOTE | 2019-05-31 11:42 | PN ---
Progress Note - Progress Note Date of Service: 05/31/19 SOAP: Subjective: Doing well-passing small amounts of flatus, no BM Minimal incisional discomfort Tolerating sips of water, no N/V Objective: Temp Pulse Resp BP Pulse Ox 99.2 F 69 16 138/73 99 05/31/19 08:13 05/31/19 08:13 05/31/19 10:17 05/31/19 08:13 05/31/19 08:13 Intake & Output 05/29/19 05/30/19 05/31/19 06/01/19 06:59 06:59 06:59 06:59 Intake Total 4092 3934 1749 Output Total 3125 900 2025 1540 Balance 967 3034 -276 -1540 Intake: IV Fluids 4092 3934 1604 D5W 1/2 NS 20 meq KCL 980 2899 694 D5W NS 40 meq KCL 910 LR 2980 NS (0.9%) 980 NS 50ML, Cefoxitin 2G 50 kcl 82 mag 55 Oral 145 Output: NG Tube Drainage Amount 2000 50 175 Urine 712 458 5698 1540 Campbell 400 100 Emesis 550 Other: Estimated Void Large Estimated Blood Loss minimal ebl Comment # Voids 1 PEX: Abd is soft and slightly distended. Incision is CDI Bowel sounds present, slightly hypoactive, not high pitched Appropriate incisional tenderness Assessment: POD# 3 s/p exlap with lysis of adhesions for SBO Post-op ileus Plan: Start sips of clears Decrease IVF PPI and heparin Increase activity
--- NOTE | 2019-05-31 13:02 | PN ---
Hospitalist Progress Note Date of Service: 05/31/19 S/IE: Winifred Montague is a 68 y/o female with a history of ovarian cancer treated by an extensive debulking surgery, HTN and anxiety admitted to the hospitalist service with complaints of abdominal pain, nausea and constipation suspicious for a small bowel obstruction who failed conservative management and is now s/p exploratory laparatomy with lysis of adhesions performed 05/28/19. Doing well this morning. Reports continued passsage of flatus, but no BM yet. Reports laryngeal discomfort resolved. Still complaining of itching and burning fine maculopapular rash with widespread coverage of the chest, abdomen and groin , particularly dense under the breasts, as well as some localized areas on the lower extremities that presented post-surgery on 05/28/19. Has been refusing steroid cream ordered for rash, requesting systemic steroid, believes that is the only way the rash will clear based on past experiences. Continues to deny CP , SOB, hemoptysis, fever, and chills. O: PE: 3 Temp Pulse Resp BP Pulse Ox 98.3 F 72 16 140/68 99 05/31/19 12:06 05/31/19 12:06 05/31/19 12:06 05/31/19 12:06 05/31/19 12:06 General: AAO4x, sitting up in bed, in no acute distress, pleasantly cooperates with interview and examination. HEENT: Head atraumatic, normocephalic. Hearing grossly intact. PERRLA, EOMI. Neck supple. No JVD. Oral mucosa pink and moist. Chest: Breathing unlabored with normal symmetric chest wall movement. Lungs clear and equal to auscultation bilaterally. Regular heart rhythm with normal S1 /S2. No rubs, clicks or gallops. Diffuse fine red maculopapular rash widespread on chest with high density in the intertriginous areas of the breasts. Abdomen: Soft, non-distended. Mild tenderness to palpation of the LUQ. Slightly hypoactive bowel sounds appreciated. Surgical incision from umbilicus to pubis covered with clean dressing and without signs of infection. Diffuse fine red maculopapular rash present. Extremities: UE and LE distal CMS intact b/l. Good handgrip strength b/l. Good strength on hip flexion and plantar/dorsi flexion b/l. Some localized areas of fine red maculopapular rash present on the medial mid-tibial surfaces b/l. Abnormal CBC / Chemistry Values: 3 05/30/19 05/30/19 05:12 05:12 WBC 3.3 L RBC 3.15 L Hgb 9.4 L Hct 28 L Potassium 3.4 L BUN/Creatinine Ratio 31.3 H Glucose 115 H Calcium 7.9 L Magnesium 1.8 L 3 05/29/19 05/29/19 04:52 04:52 WBC 3.4 L RBC 3.14 L Hgb 9.4 L Hct 28 L Absolute Lymphs (auto) 0.5 L BUN 34 H BUN/Creatinine Ratio 41.0 H Glucose 172 H Calcium 8.2 L Magnesium 1.8 L HbgA1C Result: 3 05/26/19 05:04 Hemoglobin A1c 5.5 Anemia Study Results: 3 05/26/19 05:04 Iron 36 L TIBC 308 Transferrin 220 Ferritin 40.9 Vitamin B12 497 Folate > 20.00 Current Medications: Acetaminophen (Tylenol Tab*) 975 mg PO Q8H PRN PRN Reason: PAIN - MILD Diphenhydramine HCl (Benadryl Iv*) 25 mg IV Q6H PRN PRN Reason: SLEEP Last Admin: 05/31/19 10:17 Dose: 25 mg Enoxaparin Sodium (Lovenox(*)) 40 mg SUBCUT BEDTIME [facility] Last Admin: 05/30/19 21:03 Dose: 40 mg Famotidine (Pepcid Iv*) 20 mg IV SLOW PU BID [facility] Last Admin: 05/31/19 08:27 Dose: 20 mg Hydromorphone HCl (Dilaudid Inj1s*) 1 mg IV SLOW PU Q4H PRN PRN Reason: PAIN - SEVERE Potassium Chloride/Dextrose (D5w 1/2 Ns 40 Meq Kcl 1000 Ml*) 1,000 mls @ 50 mls /hr IV PER RATE [facility] Last Admin: 05/31/19 10:23 Dose: 50 mls/hr Ketorolac Tromethamine (Toradol Inj*) 15 mg IV PUSH Q6H PRN PRN Reason: PAIN - MODERATE Last Admin: 05/31/19 10:15 Dose: 15 mg Lorazepam (Ativan Inj*) 0.5 mg IV PUSH Q8H PRN PRN Reason: ANXIETY Last Admin: 05/30/19 18:14 Dose: 0.5 mg Naloxone HCl (Narcan*) 0.08 mg IV PUSH .Q2MIN PRN PRN Reason: OVERSEDATION Ondansetron HCl (Zofran Inj*) 4 mg IV Q4H PRN PRN Reason: NAUSEA/VOMITING Last Admin: 05/29/19 07:55 Dose: 4 mg Phenol/Menthol (Chloroseptic Throat [place]*) 1 spray MT TID PRN PRN Reason: SORE THROAT Last Admin: 05/30/19 23:37 Dose: 1 spray Triamcinolone Acetonide (Triamcinolone 0.025% Oint *) 1 applic TOPICAL BID [facility]ON[facility] Last Admin: 05/31/19 08:30 Dose: Not Given Recent Orders: 05/31/19 05:37 MATT [Anti Nuclear Antibody] Routine Complement C3 Routine Complement C4 Routine 05/31/19 10:07 D5W 1/2 NS 40 Meq KCL 1000 ML* 1,000 ml IV PER RATE - 50mL / hour 05/31/19 11:54 Erythrocyte Sed Rate Routine 05/31/19 Lunch Sips of Clear Liquids Diet A/I: 68 y/o female with a history of ovarian cancer treated by an extensive debulking surgery, HTN and anxiety failed conservative management of SBO now s/p exploratory laparotomy with lysis of adhesions. P: SBO: Dx confirmed by exploratory laparotomy Tight adhesive band involving the mesentery and a large loop of bowel in the jejunum was cut relieving the bowel obstruction - surgery by Dr. Burden Advanced from ice chip diet to sips of clear liquids diet today per surgery Possible advance to full liquid diet tomorrow if condition continues to improve Encourage ambulation as tolerated Continue to monitor for passage of flatus and for first post-surgical bowel movement Continue IV maintenance fluid as above - rate was reduced to 50 mL / hr per surgery Continue PRN ketorolac for analgesia as above Rash: Itching, burning red diffuse maculopapular rash of unknown etiology. Considered allergic, autoimmune and infectious causes. Somewhat reduced coverage of truncal areas today. Ordered MATT, C3, C4, ESR to investigate etiology. Results pending. Continue diphenhydramine, famotidine and and encourage use of triamcinolone as ordered and re-evaluate tomorrow. Consider dermatology consultation if no significant improvement. Mild Anemia: Suspect mild iron deficiency anemia based upon low iron level. B12, ferritin, transferrin, folate, TIBC all normal. Blood counts stable from yesterday, no need for further investigation as long as counts remain stable. Re-start 324 mg ferrous gluconate PO QD when no longer NPO and can tolerate oral meds Follow-up with PCP for repeat CBC after d/c Lymphocytopenia: Possible benign finding due to stress of surgery. Possible sign of infection, but no other s/s of infection - afebrile, stable vitals, feeling well. Possible underlying auto-immune disease correlated with rash above. Possible due to recent use of steroid cream. Continue to monitor CBC, investigate further if counts do not normalize Hypokalemia: Suspect due to NPO status Added potassium to IV fluids as above Re-evaluate labs tomorrow Hyperglycemia: High suspicion for undiagnosed early stage DMII based upon high fasting BGT readings HgbA1C is 5.5%, no further action required at this time as BGT levels are acceptable in-hospital and HgbA1C is normal Encourage healthy diet and regular exercise as tolerated upon discharge Recommend follow-up with PCP for repeat HgbA1C at appropriate intervals Anxiety: Chronic condition normally managed with PO alprazolam PRN Continue in hospital management with lorazepam 0.5 mg IVP PRN Q4H HTN: Chronic condition normally managed with lisinopril Restart lisinopril when no longer NPO and able to tolerate oral meds Laryngeal Discomfort: Resolved with chloroseptic spray Suspect due to ET tube use during surgery Headache: Resolved after d/c MSO4 Suspect adverse reaction to opioid analgesia which is no longer in use DVT Prophylaxis: Continue enoxaparin as above
--- NOTE | 2019-05-31 13:28 | PN ---
Subjective Date of Service: 05/31/19 Interval History: Patient passed multiple gas passage, but no BM Rashes not improving, with lidocaine about same as . Objective Active Medications: Acetaminophen (Tylenol Tab*) 975 mg PO Q8H PRN PRN Reason: PAIN - MILD Diphenhydramine HCl (Benadryl Iv*) 25 mg IV Q6H PRN PRN Reason: SLEEP Last Admin: 05/31/19 10:17 Dose: 25 mg Enoxaparin Sodium (Lovenox(*)) 40 mg SUBCUT BEDTIME [facility] Last Admin: 05/30/19 21:03 Dose: 40 mg Famotidine (Pepcid Iv*) 20 mg IV SLOW PU BID [facility] Last Admin: 05/31/19 08:27 Dose: 20 mg Hydromorphone HCl (Dilaudid Inj1s*) 1 mg IV SLOW PU Q4H PRN PRN Reason: PAIN - SEVERE Potassium Chloride/Dextrose (D5w 1/2 Ns 40 Meq Kcl 1000 Ml*) 1,000 mls @ 50 mls /hr IV PER RATE [facility] Last Admin: 05/31/19 10:23 Dose: 50 mls/hr Ketorolac Tromethamine (Toradol Inj*) 15 mg IV PUSH Q6H PRN PRN Reason: PAIN - MODERATE Last Admin: 05/31/19 10:15 Dose: 15 mg Lorazepam (Ativan Inj*) 0.5 mg IV PUSH Q8H PRN PRN Reason: ANXIETY Last Admin: 05/30/19 18:14 Dose: 0.5 mg Miscellaneous (Ativan Pyxis [place]) 1 ea N/A .ATIVAN IV HOWARD PRN PRN Reason: PYXIS HOWARD Naloxone HCl (Narcan*) 0.08 mg IV PUSH .Q2MIN PRN PRN Reason: OVERSEDATION Ondansetron HCl (Zofran Inj*) 4 mg IV Q4H PRN PRN Reason: NAUSEA/VOMITING Last Admin: 05/29/19 07:55 Dose: 4 mg Phenol/Menthol (Chloroseptic Throat [place]*) 1 spray MT TID PRN PRN Reason: SORE THROAT Last Admin: 05/30/19 23:37 Dose: 1 spray Triamcinolone Acetonide (Triamcinolone 0.025% Oint *) 1 applic TOPICAL BID [facility] Last Admin: 05/31/19 08:30 Dose: Not Given Vital Signs - 8 hr 05/31/19 05/31/19 05/31/19 05:29 07:44 08:13 Temperature 99.2 F Pulse Rate 69 Respiratory 16 16 14 Rate Blood Pressure 138/73 (mmHg) O2 Sat by Pulse 99 Oximetry 05/31/19 05/31/19 10:17 12:06 Temperature 98.3 F Pulse Rate 72 Respiratory 16 16 Rate Blood Pressure 140/68 (mmHg) O2 Sat by Pulse 99 Oximetry Oxygen Devices in Use Now: None Result Diagrams: 05/30/19 05:12 05/30/19 05:12 Microbiology and Other Data: Microbiology 05/25/19 12:35 Urine Culture - Final Urine Assess/Plan/Problems-Billing Assessment: 68W with history of ovarian cancer s/p debulking surgery and in remission, HTN, anxiety, who presented with acute onset of abdominal pain, found to have small bowel obstruction, now s/p CLARY on 05/28. - Patient Problems (1) Small bowel obstruction Current Visit: Yes Status: Acute Code(s): K56.609 - UNSP INTESTNL OBST, UNSP TO PARTIAL VERSUS COMPLETE OBST SNOMED Code(s): 101001064 Comment: Likely due to surgical adhesion from previous debulking surgery, first episode. Now s/p CLARY on 05/28, still advancing diet - IV fluid, sips of clear liquid as per surgical team - APAP prn mild pain, ketorolac prn moderate, and hydromorphone prn severe pain - ambulate as tolerated - monitor for BM, will advance diet accordingly as per surgeon opinion - appreciate surgery input (2) Headache Current Visit: Yes Status: Acute Code(s): R51 - HEADACHE SNOMED Code(s): 79099187 Comment: Tension headache vs caffeine withdrawal - pain meds as above - resolved (3) Rash Current Visit: Yes Status: Acute Code(s): R21 - RASH AND OTHER NONSPECIFIC SKIN ERUPTION SNOMED Code(s): 599454487 Comment: - vasculitic rashes, concerning for autoimmune condition with its recurrent nature and good response to steroid - will check MATT. C3, C4, ESR today - topical steroid cream (4) DVT (deep venous thrombosis) Current Visit: Yes Status: Acute Code(s): I82.409 - ACUTE EMBOLISM AND THOMBOS UNSP DEEP VN UNSP LOWER EXTREMITY SNOMED Code(s): 683533588 Comment: sc Lovenox Status and Disposition: Inpatient Medicine. Attestation Documenting Resident: Allie Dominique Supervising Physician: Zaida Coronado Attestation: This service has been performed in part by a resident under the direction of a teaching physician.I, Zaida Coronado, performed the service, or was physically present during the critical, or howard portions of the service, furnished by the resident. I participated in the management of the patient. Addendum entered and electronically signed by Allie Dominique MD 05/31/19 13:39: Subjective Date of Service: 05/31/19 Interval History: Ignore previous input, wrong input! Progress note for today Patient had multiple gas passage, but no BM Rashes not improving but also noted patient was not compliance in steroid cream Objective Active Medications: Acetaminophen (Tylenol Tab*) 975 mg PO Q8H PRN PRN Reason: PAIN - MILD Diphenhydramine HCl (Benadryl Iv*) 25 mg IV Q6H PRN PRN Reason: SLEEP Last Admin: 05/31/19 10:17 Dose: 25 mg Enoxaparin Sodium (Lovenox(*)) 40 mg SUBCUT BEDTIME [facility] Last Admin: 05/30/19 21:03 Dose: 40 mg Famotidine (Pepcid Iv*) 20 mg IV SLOW PU BID [facility] Last Admin: 05/31/19 08:27 Dose: 20 mg Hydromorphone HCl (Dilaudid Inj1s*) 1 mg IV SLOW PU Q4H PRN PRN Reason: PAIN - SEVERE Potassium Chloride/Dextrose (D5w 1/2 Ns 40 Meq Kcl 1000 Ml*) 1,000 mls @ 50 mls /hr IV PER RATE [facility] Last Admin: 05/31/19 10:23 Dose: 50 mls/hr Ketorolac Tromethamine (Toradol Inj*) 15 mg IV PUSH Q6H PRN PRN Reason: PAIN - MODERATE Last Admin: 05/31/19 10:15 Dose: 15 mg Lorazepam (Ativan Inj*) 0.5 mg IV PUSH Q8H PRN PRN Reason: ANXIETY Last Admin: 05/30/19 18:14 Dose: 0.5 mg Miscellaneous (Ativan Pyxis [place]) 1 ea N/A .ATIVAN IV HOWARD PRN PRN Reason: PYXIS HOWARD Naloxone HCl (Narcan*) 0.08 mg IV PUSH .Q2MIN PRN PRN Reason: OVERSEDATION Ondansetron HCl (Zofran Inj*) 4 mg IV Q4H PRN PRN Reason: NAUSEA/VOMITING Last Admin: 05/29/19 07:55 Dose: 4 mg Phenol/Menthol (Chloroseptic Throat [place]*) 1 spray MT TID PRN PRN Reason: SORE THROAT Last Admin: 05/30/19 23:37 Dose: 1 spray Triamcinolone Acetonide (Triamcinolone 0.025% Oint *) 1 applic TOPICAL BID [facility] Last Admin: 05/31/19 08:30 Dose: Not Given Vital Signs - 8 hr 05/31/19 05/31/19 05/31/19 07:44 08:13 10:17 Temperature 99.2 F Pulse Rate 69 Respiratory 16 14 16 Rate Blood Pressure 138/73 (mmHg) O2 Sat by Pulse 99 Oximetry 05/31/19 12:06 Temperature 98.3 F Pulse Rate 72 Respiratory 16 Rate Blood Pressure 140/68 (mmHg) O2 Sat by Pulse 99 Oximetry Oxygen Devices in Use Now: None Exam: Appearance: sitting on a chair weak looking Eyes: No Scleral Icterus Ears/Nose/Mouth/Throat: Clear Oropharnyx, Mucous Membranes Moist, Neck: NL Appearance and Movements; NL JVP, Trachea Midline Respiratory: Symmetrical Chest Expansion and Respiratory Effort, Clear to Auscultation Cardiovascular: NL Sounds; No Murmurs; No JVD, RRR Abdominal: midline surgical incision covered in bandage c/d/i, mild diffuse abd tenderness, hypoactive bowel sounds Extremities: mild edema on hands and ankles Skin: morbiliform rashes on anterior chest and medial aspect of bilateral patiño, non blanchable, not improving Result Diagrams: 05/30/19 05:12 05/30/19 05:12 Microbiology and Other Data: Microbiology 05/25/19 12:35 Urine Culture - Final Urine Assess/Plan/Problems-Billing Assessment: 68W with history of ovarian cancer s/p debulking surgery and in remission, HTN, anxiety, who presented with acute onset of abdominal pain, found to have small bowel obstruction, now s/p CLARY on 05/28. - Patient Problems (1) Small bowel obstruction Current Visit: Yes Status: Acute Code(s): K56.609 - UNSP INTESTNL OBST, UNSP TO PARTIAL VERSUS COMPLETE OBST SNOMED Code(s): 447973186 Comment: Likely due to surgical adhesion from previous debulking surgery, first episode. Now s/p CLARY on 05/28, still advancing diet - IV fluid, sips of clear liquid as per surgical team - APAP prn mild pain, ketorolac prn moderate, and hydromorphone prn severe pain - ambulate as tolerated - monitor for BM, will advance diet accordingly as per surgeon opinion - appreciate surgery input (2) Headache Current Visit: Yes Status: Acute Code(s): R51 - HEADACHE SNOMED Code(s): 69841968 Comment: Tension headache vs caffeine withdrawal - pain meds as above - resolved (3) Rash Current Visit: Yes Status: Acute Code(s): R21 - RASH AND OTHER NONSPECIFIC SKIN ERUPTION SNOMED Code(s): 942394894 Comment: - vasculitic rashes, concerning for autoimmune condition with its recurrent nature and good response to steroid - will check MATT. C3, C4, ESR today - topical steroid cream (4) DVT (deep venous thrombosis) Current Visit: Yes Status: Acute Code(s): I82.409 - ACUTE EMBOLISM AND THOMBOS UNSP DEEP VN UNSP LOWER EXTREMITY SNOMED Code(s): 468471404 Comment: sindy Lilly Status and Disposition: Inpatient Medicine. PT Attestation Documenting Resident: Allie Dominique Supervising Physician: Zaida Coronado Attestation: This service has been performed in part by a resident under the direction of a teaching physician.I, Zaida Coronado, performed the service, or was physically present during the critical, or howard portions of the service, furnished by the resident. I participated in the management of the patient.
[2019-05-31] MEDS: Ondansetron INJ* 2 MG/ML VIAL IV PRN ×2 (17:41→22:10)
[2019-05-31] MEDS: LORazepam INJ* 2 MG/ML 1 ML VIAL IV PUSH PRN (19:36)
[2019-05-31] MEDS: Enoxaparin(*) 40 MG/0.4 ML SYR SUBCUT SCH (22:08)
[2019-06-01] MEDS: Ondansetron INJ* 2 MG/ML VIAL IV PRN ×3 (04:59→15:09)
[2019-06-01 06:14] LABS: ABS Eosinophils 0.1 10^3/ul (0-0.6); ABS Lymphocytes 0.6 10^3/ul (1.0-4.8); ABS Monocytes 0.7 10^3/ul (0-0.8); ABS Neutrophils 4.3 10^3/ul (1.5-7.7); Eosinophil % 1.7 %; Hematocrit 28 % (35-47); Hemoglobin 9.5 g/dL (12.0-16.0); Lymphocyte % 10.7 %; Mean Corpuscular HGB Conc 34 g/dL (31-36); Mean Corpuscular Hemoglobin 30 pg (27-31); Mean Corpuscular Volume 88 fL (80-97); Mean Platelet Volume 8.4 fL (7.4-10.4); Platelet Count 193 10^3/uL (150-450); Red Blood Count 3.23 10^6 /uL (3.70-4.87); Red Cell Distribution Width 12 % (10-15); White Blood Count 5.7 10^3/uL (3.5-10.8)
[2019-06-01 06:28] LABS: Calcium 8.9 mg/dL (8.6-10.3); EGFR African American 95.4 (>60); EGFR Non-African American 78.8 (>60); Potassium 3.5 mmol/L (3.5-5.0)
--- NOTE | 2019-06-01 07:19 | PN ---
Hospitalist Progress Note Date of Service: 06/01/19 S/IE: Winifred Montague is a 68 y/o female with a history of ovarian cancer treated by an extensive debulking surgery, HTN and anxiety admitted to the hospitalist service with complaints of abdominal pain, nausea and constipation suspicious for a small bowel obstruction who failed conservative management and is now s/p exploratory laparatomy with lysis of adhesions performed 05/28/19. Not feeling well this morning. Had switched to full liquid diet yesterday and had 1/2 ensure and some cee cheikh around 6:00 PM. Became nauseated and vomited around 6:00 AM. Emesis thin and billious. Feels "crappy and hungry." IVF were stopped last night due to some swelling of the hands and feet and transition to liquid diet. Back to ice chips diet today and IVF restarted at 75 mL/hr. Passed significant flatus this AM, but still no BM. Ambulating well. Went for ABD XR this AM. Itching / burning from rash less significant than yesterday. Using the steroid cream today. Overall pain level 2/10. Continues to deny CP, SOB, hemoptysis, fever, chills. O: PE: 3 Temp Pulse Resp BP Pulse Ox 99.4 F 89 16 152/78 97 06/01/19 07:22 06/01/19 07:22 06/01/19 07:22 06/01/19 07:22 06/01/19 07:22 General: AAO4x, sitting up in bed, obviously uncomfortable, pleasantly cooperates with interview and examination. HEENT: Head atraumatic, normocephalic. Hearing grossly intact. PERRLA, EOMI. Neck supple. No JVD. Oral mucosa pink and moist. Chest: Breathing unlabored with normal symmetric chest wall movement. Lungs clear and equal to auscultation bilaterally. Regular heart rhythm with normal S1 S2. No rubs, clicks or gallops. Diffuse fine red maculopapular rash widespread on chest with high density in the intertriginous areas of the breasts. Abdomen: Soft, non-distended. Mild diffuse tenderness to palpation. Slightly hypoactive bowel sounds appreciated. Stapled closed surgical incision from umbilicus to pubis uncovered and without signs of infection. Diffuse fine red maculopapular rash diffusely present on abdomen and groin. Extremities: UE and LE distal CMS intact b/l. Good handgrip strength b/l. Good strength on hip flexion and plantar/dorsi flexion b/l. Some localized areas of fine red maculopapular rash present on the medial mid-tibial surfaces b/l. Pertinent Lab Results: 3 06/01/19 06/01/19 05:26 05:26 WBC 5.7 RBC 3.23 L Hgb 9.5 L Hct 28 L Absolute Neuts (auto) 4.3 Absolute Lymphs (auto) 0.6 L Potassium 3.5 Glucose 104 H 3 05/31/19 12:33 ESR 8 3 05/30/19 05/30/19 05:12 05:12 WBC 3.3 L RBC 3.15 L Hgb 9.4 L Hct 28 L Potassium 3.4 L BUN/Creatinine Ratio 31.3 H Glucose 115 H Calcium 7.9 L Magnesium 1.8 L Abdomen XR (06/01/19): FINDINGS: BOWEL: There are dilated loops of small bowel up to 4.8 cm in caliber, increased from the previous examination. There is a paucity of distal bowel gas. CALCULI: There are no abnormal calculi. BONES AND SOFT TISSUES: Degenerative changes are noted. OTHER FINDINGS: The lung bases are clear. There is no subphrenic gas. Surgical clips are noted in the abdomen. IMPRESSION: SMALL BOWEL OBSTRUCTIVE PATTERN. THE CALIBER OF THE SMALL BOWEL HAS INCREASED COMPARED TO MAY 28, 2019. Current Medications: Acetaminophen (Tylenol Tab*) 975 mg PO Q8H PRN PRN Reason: PAIN - MILD Diphenhydramine HCl (Benadryl Iv*) 25 mg IV Q6H PRN PRN Reason: ITCHING Enoxaparin Sodium (Lovenox(*)) 40 mg SUBCUT BEDTIME [facility] Last Admin: 05/31/19 22:08 Dose: 40 mg Famotidine (Pepcid Iv*) 20 mg IV SLOW PU BID [facility] Last Admin: 06/01/19 08:09 Dose: 20 mg Hydromorphone HCl (Dilaudid Inj1s*) 1 mg IV SLOW PU Q4H PRN PRN Reason: PAIN - SEVERE Potassium Chloride/Dextrose (D5w 1/2 Ns 40 Meq Kcl 1000 Ml*) 1,000 mls @ 75 mls /hr IV PER RATE [facility] Last Admin: 06/01/19 11:16 Dose: 75 mls/hr Ketorolac Tromethamine (Toradol Inj*) 15 mg IV PUSH Q6H PRN PRN Reason: PAIN - MODERATE Last Admin: 05/31/19 19:35 Dose: 15 mg Lorazepam (Ativan Inj*) 0.5 mg IV PUSH Q8H PRN PRN Reason: ANXIETY Last Admin: 06/01/19 08:38 Dose: 0.5 mg Miscellaneous (Ativan Pyxis [place]) 1 ea N/A .ATIVAN IV MCDONOUGH PRN PRN Reason: PYXIS MCDONOUGH Naloxone HCl (Narcan*) 0.08 mg IV PUSH .Q2MIN PRN PRN Reason: OVERSEDATION Ondansetron HCl (Zofran Inj*) 4 mg IV Q4H PRN PRN Reason: NAUSEA/VOMITING Last Admin: 06/01/19 15:09 Dose: 4 mg Phenol/Menthol (Chloroseptic Throat [place]*) 1 spray MT TID PRN PRN Reason: SORE THROAT Last Admin: 05/30/19 23:37 Dose: 1 spray Triamcinolone Acetonide (Triamcinolone 0.025% Oint *) 1 applic TOPICAL BID [facility] Last Admin: 06/01/19 08:11 Dose: 1 applic Recent Orders: 05/31/19 17:46 Convert to Saline Loc(DC IVF) .ONCE 05/31/19 18:23 diPHENhydraMINE IV* [Benadryl IV*] 25 mg IV Q6H PRN 06/01/19 11:11 D5W 1/2 NS 40 Meq KCL 1000 ML* 1,000 ml IV PER RATE 06/01/19 Lunch Ice Chips Only Diet [NPO Except Ice Chips] A/I: 68 y/o female with a history of ovarian cancer treated by an extensive debulking surgery, HTN and anxiety failed conservative management of SBO now s/p exploratory laparotomy with lysis of adhesions. P: SBO: Dx confirmed by exploratory laparotomy Tight adhesive band involving the mesentery and a large loop of bowel in the jejunum was cut relieving the bowel obstruction - surgery by Dr. Burden Back to ice chip diet today per surgery Encourage continued ambulation as tolerated Continue to monitor for passage of flatus and for first post-surgical bowel movement Continue IV maintenance fluid as above Continue PRN ketorolac for analgesia as above Rash: Itching, burning red diffuse maculopapular rash of unknown etiology. Considered allergic, autoimmune and infectious causes. Ordered MATT, C3, C4, ESR to investigate etiology. ESR normal as above. Remainder still pending. Continue diphenhydramine, famotidine and triamcinolone and re-evaluate daily. Consider dermatology consultation if no significant improvement. Mild Anemia: Suspect mild iron deficiency anemia based upon low iron level. B12, ferritin, transferrin, folate, TIBC all normal. Blood counts stable from yesterday, no need for further investigation as long as counts remain stable. Re-start 324 mg ferrous gluconate PO QD when no longer NPO and can tolerate oral meds Follow-up with PCP for repeat CBC after d/c Lymphocytopenia: Possible benign finding due to stress of surgery. Possible sign of infection, but no other s/s of infection - afebrile, stable vitals, feeling well. Possible underlying auto-immune disease correlated with rash above. Possible due to recent use of steroid cream. WBC count up from yesterday, now normal. Still slight lymphocytopenia but up from yesterday. Continue to monitor CBC, investigate further if counts do not continue to normalize Hypokalemia: Suspect due to limited oral intake Added potassium to IV fluids as above Potassium up from yesterday Continue to monitor chemistry daily Hyperglycemia: High suspicion for undiagnosed early stage DMII based upon high fasting BGT readings HgbA1C is 5.5%, no further action required at this time as BGT levels are acceptable in-hospital and HgbA1C is normal Encourage healthy diet and regular exercise as tolerated upon discharge Recommend follow-up with PCP for repeat HgbA1C at appropriate intervals Anxiety: Chronic condition normally managed with PO alprazolam PRN Continue in hospital management with lorazepam 0.5 mg IVP PRN Q4H HTN: Chronic condition normally managed with lisinopril Restart lisinopril when no longer NPO and able to tolerate oral meds Laryngeal Discomfort: Resolved with chloroseptic spray Suspect due to ET tube use during surgery Headache: Resolved after d/c MSO4 Suspect adverse reaction to opioid analgesia which is no longer in use DVT Prophylaxis: Continue enoxaparin as above
[2019-06-01] MEDS: Famotidine IV* 10 MG/ML 2 ML (20 mg) IV SLOW PU SCH ×2 (08:09→21:47)
[2019-06-01] MEDS: Triamcinolone 0.025% OINT * 15 GM TUBE TOPICAL SCH ×2 (08:11→21:47)
[2019-06-01] MEDS: LORazepam INJ* 2 MG/ML 1 ML VIAL IV PUSH PRN (08:38)
--- NOTE | 2019-06-01 10:05 | PN ---
<Chelle Jolley - Last Filed: 06/01/19 10:06> Progress Note - Progress Note Date of Service: 06/01/19 Note: S: Patient is POD 4 for SBO. She was feeling well over the last couple days but began to have nausea and vomiting late last night and this morning around 6am. Yesterday, she had ensure and cee cheikh, but no solid foods. She is passing flatus but has not yet had a bowel movement. She is voiding without difficulty. She has intermittent lower abdominal pain that "isn't that bad" and rates it as a 2/10. She has been ambulating 4 times daily. She denies fever, chills or night sweats. O: Vital Signs Temp 99.4 F 06/01/19 07:22 Pulse 89 06/01/19 07:22 Resp 16 06/01/19 09:53 BP 152/78 06/01/19 07:22 Pulse Ox 97 06/01/19 08:00 Intake & Output 05/31/19 06/01/19 06/01/19 18:59 06:59 18:59 Intake Total 581 475 Output Total 2940 1525 100 Balance -2359 -1050 -100 Intake: IV Fluids 531 D5W NS 40 meq KCL 531 Oral 50 475 Output: Urine 2940 1275 100 Emesis 250 Other: # Bowel Movements 0 # Voids 6 General: Patient is laying on the bed resting. Upon arousal, she is anxious and in acute distress. Alert and oriented x3. CV: RRR Lungs: CTA Abdomen: Midline incision with jose healing well and without infection. Abdomen is soft and non distended. Normal BS with rushing in all quadrants. Diffuse abdominal tenderness to palpation with increased tenderness to the lower abdomen Extremities: No edema. Pulses 2+ and equal in the UE/LE Laboratory Tests 06/01/19 06/01/19 05:26 05:26 WBC 5.7 RBC 3.23 L Hgb 9.5 L Hct 28 L Potassium 3.5 Calcium 8.9 A/P Patient is POD 4 for SBO. She was initially feeling better over the last couple days but has since developed nausea and vomiting that started last night and into this morning. She has no fever and WBC is WNL. RBC, HgB and Hct are low, but consistent with admission stay; potassium and calcium WNL. Still no bowel movement, but bowel sounds present and able to pass flatus. Lower abdominal pain still present. Slow diet advance and observation for tolerance and bowel movement. <Milton Person - Last Filed: 06/01/19 11:14> Progress Note - Progress Note Note: Agree with above. Patient seen and examined. Resume IVF @ 75cc hr, diet back to ice chips. if Repeat vomit, will consider replacing the NG tube above d/w Dr Burden
[2019-06-01] MEDS: D5W 1/2 NS 40 Meq KCL 1000 ML* 1,000 ML IV SCH (11:16)
--- NOTE | 2019-06-01 16:37 | PN ---
Subjective Date of Service: 06/01/19 Interval History: Patient had emesis this morning after advancing to full liquid diet yesterday. She passed gas this morning during AXR when I saw her. But no BM since operation. Objective Active Medications: Acetaminophen (Tylenol Tab*) 975 mg PO Q8H PRN PRN Reason: PAIN - MILD Diphenhydramine HCl (Benadryl Iv*) 25 mg IV Q6H PRN PRN Reason: ITCHING Enoxaparin Sodium (Lovenox(*)) 40 mg SUBCUT BEDTIME [facility] Last Admin: 05/31/19 22:08 Dose: 40 mg Famotidine (Pepcid Iv*) 20 mg IV SLOW PU BID [facility] Last Admin: 06/01/19 08:09 Dose: 20 mg Hydromorphone HCl (Dilaudid Inj1s*) 1 mg IV SLOW PU Q4H PRN PRN Reason: PAIN - SEVERE Potassium Chloride/Dextrose (D5w 1/2 Ns 40 Meq Kcl 1000 Ml*) 1,000 mls @ 75 mls /hr IV PER RATE [facility] Last Admin: 06/01/19 11:16 Dose: 75 mls/hr Ketorolac Tromethamine (Toradol Inj*) 15 mg IV PUSH Q6H PRN PRN Reason: PAIN - MODERATE Last Admin: 05/31/19 19:35 Dose: 15 mg Lorazepam (Ativan Inj*) 0.5 mg IV PUSH Q8H PRN PRN Reason: ANXIETY Last Admin: 06/01/19 08:38 Dose: 0.5 mg Miscellaneous (Ativan Pyxis [place]) 1 ea N/A .ATIVAN IV HOWARD PRN PRN Reason: PYXIS HOWARD Naloxone HCl (Narcan*) 0.08 mg IV PUSH .Q2MIN PRN PRN Reason: OVERSEDATION Ondansetron HCl (Zofran Inj*) 4 mg IV Q4H PRN PRN Reason: NAUSEA/VOMITING Last Admin: 06/01/19 15:09 Dose: 4 mg Phenol/Menthol (Chloroseptic Throat [place]*) 1 spray MT TID PRN PRN Reason: SORE THROAT Last Admin: 05/30/19 23:37 Dose: 1 spray Triamcinolone Acetonide (Triamcinolone 0.025% Oint *) 1 applic TOPICAL BID [facility] Last Admin: 06/01/19 08:11 Dose: 1 applic Vital Signs - 8 hr 06/01/19 06/01/19 06/01/19 08:38 09:53 12:01 Temperature 98.2 F Pulse Rate 93 Respiratory 20 16 18 Rate Blood Pressure 152/68 (mmHg) O2 Sat by Pulse 97 Oximetry 06/01/19 15:25 Temperature 98.8 F Pulse Rate 77 Respiratory 18 Rate Blood Pressure 149/69 (mmHg) O2 Sat by Pulse 99 Oximetry Oxygen Devices in Use Now: None Exam: Appearance: lying on the bed with a basin nearby. Eyes: No Scleral Icterus Ears/Nose/Mouth/Throat: Clear Oropharnyx, Mucous Membranes Moist, Neck: NL Appearance and Movements; NL JVP, Trachea Midline Respiratory: Symmetrical Chest Expansion and Respiratory Effort, Clear to Auscultation Cardiovascular: NL Sounds; No Murmurs; No JVD, RRR Abdominal: midline surgical incision covered in bandage c/d/i, mild diffuse abd tenderness, hypoactive bowel sounds Extremities: mild edema on hands and ankles Skin: morbiliform rashes on anterior chest and medial aspect of bilateral patiño, non blanchable, spreading to incision site and bilateral groins, patient access manager color Result Diagrams: 06/01/19 05:26 06/01/19 05:26 Microbiology and Other Data: Microbiology 05/25/19 12:35 Urine Culture - Final Urine Assess/Plan/Problems-Billing Assessment: 68W with history of ovarian cancer s/p debulking surgery and in remission, HTN, anxiety, who presented with acute onset of abdominal pain, found to have small bowel obstruction, now s/p CLARY on 05/28, still no BM and vomitting, concerning for post op ileus vs obstruction - Patient Problems (1) Small bowel obstruction Current Visit: Yes Status: Acute Code(s): K56.609 - UNSP INTESTNL OBST, UNSP TO PARTIAL VERSUS COMPLETE OBST SNOMED Code(s): 816741448 Comment: Likely due to surgical adhesion from previous debulking surgery, first episode. Now s/p CLARY on 05/28, still no BM, vomitting this morning with AXR obstructive picture concerning for new obstruction vs post op ileus - IV fluid - APAP prn mild pain, ketorolac prn moderate, and hydromorphone prn severe pain - need to discuss with surgeon regarding further management, probable ngt tube and surgical management if still not improving (2) Rash Current Visit: Yes Status: Acute Code(s): R21 - RASH AND OTHER NONSPECIFIC SKIN ERUPTION SNOMED Code(s): 692562851 Comment: - vasculitic rashes, concerning for autoimmune condition with its recurrent nature and good response to steroid - awaiting MATT. C3, C4 result, ESR 8. - topical steroid cream (3) Headache Current Visit: Yes Status: Acute Code(s): R51 - HEADACHE SNOMED Code(s): 20627629 Comment: Tension headache vs caffeine withdrawal - pain meds as above - resolved (4) DVT (deep venous thrombosis) Current Visit: Yes Status: Acute Code(s): I82.409 - ACUTE EMBOLISM AND THOMBOS UNSP DEEP VN UNSP LOWER EXTREMITY SNOMED Code(s): 844344021 Comment: sindy Maxx Status and Disposition: Inpatient Medicine. Attestation Documenting Resident: Allie Dominique Supervising Physician: Megan Coronado Attending/Supervising Physician Comment: Today has been eventful for Winifred. After advancing to liquids yesterday, she vomited this morning and again this afternoon. No pain. Reviewed case with Dr. Burden who recommends continuing conservative management and watchful waiting. Attestation: This service has been performed in part by a resident under the direction of a teaching physician.I, Megan Coronado, performed the service, or was physically present during the critical, or howard portions of the service, furnished by the resident. I participated in the management of the patient.
--- NOTE | 2019-06-01 16:45 | PN ---
Progress Note - Progress Note Date of Service: 06/01/19 Note: She had some vomiting this morning-- No significant abdominal pain Does not feel distended. Temp Pulse Resp BP Pulse Ox 98.8 F 77 18 149/69 99 06/01/19 15:25 06/01/19 15:25 06/01/19 15:25 06/01/19 15:25 06/01/19 15:25 Intake & Output 05/30/19 05/31/19 06/01/19 06/02/19 06:59 06:59 06:59 06:59 Intake Total 3934 1749 1056 Output Total 900 2025 4465 600 Balance 3034 -276 -3409 -600 Intake: IV Fluids 3934 1604 531 D5W 1/2 NS 20 meq KCL 2899 694 D5W NS 40 meq KCL 910 531 NS (0.9%) 980 mag 55 Oral 145 525 Output: NG Tube Drainage Amount 50 175 Urine 750 1850 4215 500 [place] 100 Emesis 250 100 Other: Estimated Void Large # Bowel Movements 0 0 # Voids 1 6 PEX: Comfortable Abd is soft and non-distended. Few bowel sounds present. Incision CDI. Minimal tenderness Laboratory Results - last 24 hr 05/31/19 06/01/19 06/01/19 12:33 05:26 05:26 WBC 5.7 RBC 3.23 L Hgb 9.5 L Hct 28 L MCV 88 MCH 30 MCHC 34 RDW 12 Plt Count 193 MPV 8.4 Neut % (Auto) 75.9 Lymph % (Auto) 10.7 [place] % (Auto) 11.5 Eos % (Auto) 1.7 Baso % (Auto) 0.2 Absolute Neuts (auto) 4.3 Absolute Lymphs (auto) 0.6 L Absolute Monos (auto) 0.7 Absolute Eos (auto) 0.1 Absolute Basos (auto) 0.0 Absolute Nucleated RBC 0.0 Nucleated RBC % 0.0 ESR 8 Sodium 136 Potassium 3.5 Chloride 102 Carbon Dioxide 28 Anion Gap 6 BUN 8 Creatinine 0.73 Est GFR ( Amer) 95.4 Est GFR (Non-Af Amer) 78.8 BUN/Creatinine Ratio 11.0 Glucose 104 H Calcium 8.9 S/P exlap lysis of adhesions for SBO Post-op ileus Suspect will take more time to "open up" and do not feel any acute surgical issue at this time. Discussed with her-continue NPO and IVF and may need re- insertion of NGT. Labs OK, no fever, no tachycardia and her exam is rather benign.
[2019-06-01] MEDS: Ketorolac INJ* 15 MG/ML 1 ML VIAL IV PUSH PRN (17:14)
[2019-06-01] MEDS: diPHENhydraMINE IV* 50 MG/ML 1 ml VIAL (BENADRYL) IV PRN (19:48)
[2019-06-01] MEDS: Enoxaparin(*) 40 MG/0.4 ML SYR SUBCUT SCH (21:48)
[2019-06-02] MEDS: D5W 1/2 NS 40 Meq KCL 1000 ML* 1,000 ML IV SCH ×2 (01:29→14:28)
[2019-06-02 06:46] LABS: ABS Eosinophils 0.2 10^3/ul (0-0.6); ABS Monocytes 0.7 10^3/ul (0-0.8); ABS Neutrophils 3.3 10^3/ul (1.5-7.7); Hematocrit 27 % (35-47); Hemoglobin 9.2 g/dL (12.0-16.0); Lymphocyte % 18.8 %; Mean Corpuscular HGB Conc 35 g/dL (31-36); Mean Corpuscular Hemoglobin 30 pg (27-31); Mean Corpuscular Volume 86 fL (80-97); Mean Platelet Volume 8.1 fL (7.4-10.4); Platelet Count 205 10^3/uL (150-450); Red Blood Count 3.08 10^6 /uL (3.70-4.87); Red Cell Distribution Width 13 % (10-15); White Blood Count 5.2 10^3/uL (3.5-10.8)
[2019-06-02 07:16] LABS: Albumin/Globulin Ratio 1.7 (1-3); BUN/Creatinine Ratio 10.4 (8-20); Calcium 8.5 mg/dL (8.6-10.3); EGFR African American 89.7 (>60); EGFR Non-African American 74.1 (>60); Globulin 1.8 g/dL (2-4); Potassium 3.5 mmol/L (3.5-5.0); Total Bilirubin 0.4 mg/dL (0.2-1.0); Total Protein 4.8 g/dL (6.4-8.9)
[2019-06-02] MEDS: Triamcinolone 0.025% OINT * 15 GM TUBE TOPICAL SCH ×2 (09:06→20:58)
[2019-06-02] MEDS: Famotidine IV* 10 MG/ML 2 ML (20 mg) IV SLOW PU SCH ×2 (09:07→20:57)
--- NOTE | 2019-06-02 09:42 | PN ---
Progress Note - Progress Note Date of Service: 06/02/19 SOAP: Subjective: NGT placed last night for repeated vomiting Feels much better No abdominal pain, no flatus Ambulated Objective: Temp Pulse Resp BP Pulse Ox 97.3 F 73 16 121/61 97 06/02/19 08:06 06/02/19 08:06 06/02/19 08:06 06/02/19 08:06 06/02/19 08:06 Intake & Output 05/31/19 06/01/19 06/02/19 06/03/19 06:59 06:59 06:59 06:59 Intake Total 1749 1056 1080 Output Total 2025 4465 4500 300 Balance -054 -7966 -3420 -300 Intake: IV Fluids 1604 531 980 D5W 1/2 NS 20 meq KCL 694 D5W NS 40 meq KCL 910 531 980 Oral 145 525 100 Output: NG Tube Drainage Amount 175 2800 Urine 1850 4215 1600 300 Emesis 250 100 Other: Estimated Void Large # Bowel Movements 0 0 # Voids 1 6 PEX: Comfortable-pleasant Cor RRR Lungs are clear Abd is soft and non-distended. Incision CDI. Bowel sounds are present, normoactive and not high pitched or tinkling, appropriate incisional tenderness. Laboratory Results - last 24 hr 05/31/19 06/02/19 06/02/19 05:37 06:21 06:21 WBC 5.2 RBC 3.08 L Hgb 9.2 L Hct 27 L MCV 86 MCH 30 MCHC 35 RDW 13 Plt Count 205 MPV 8.1 Neut % (Auto) 63.7 Lymph % (Auto) 18.8 [place] % (Auto) 13.9 Eos % (Auto) 3.0 Baso % (Auto) 0.6 Absolute Neuts (auto) 3.3 Absolute Lymphs (auto) 1.0 Absolute Monos (auto) 0.7 Absolute Eos (auto) 0.2 Absolute Basos (auto) 0.0 Absolute Nucleated RBC 0.0 Nucleated RBC % 0.0 Sodium 136 Potassium 3.5 Chloride 102 Carbon Dioxide 29 Anion Gap 5 BUN 8 Creatinine 0.77 Est GFR ( Amer) 89.7 Est GFR (Non-Af Amer) 74.1 BUN/Creatinine Ratio 10.4 Glucose 107 H Calcium 8.5 L Total Bilirubin 0.40 AST 18 ALT 37 Alkaline Phosphatase 43 Total Protein 4.8 L Albumin 3.0 L Globulin 1.8 L Albumin/Globulin Ratio 1.7 Anti-Nuclear Antibody 0.3 Complement C3 96 Complement C4 18 Assessment: POD# 5 s/p exlap with lysis of adhesions for SBO Post-op ileus--NGT re-inserted. Plan: Continue NGT IVF Increase activity. Ice chips. Care discussed with patient
--- NOTE | 2019-06-02 11:23 | PN ---
Subjective Date of Service: 06/02/19 Interval History: Patient felt great improvement after inserting NGT. Noted about 200ml suction in canister, greenish billary liquid. No abdominal pain, no fever. Rashes subsided with steroid cream. She is in uplifting spirit to get better and go home early. Objective Active Medications: Acetaminophen (Tylenol Tab*) 975 mg PO Q8H PRN PRN Reason: PAIN - MILD Diphenhydramine HCl (Benadryl Iv*) 25 mg IV Q6H PRN PRN Reason: ITCHING Last Admin: 06/01/19 19:48 Dose: 25 mg Enoxaparin Sodium (Lovenox(*)) 40 mg SUBCUT BEDTIME [facility] Last Admin: 06/01/19 21:48 Dose: 40 mg Famotidine (Pepcid Iv*) 20 mg IV SLOW PU BID [facility] Last Admin: 06/02/19 09:07 Dose: 20 mg Hydromorphone HCl (Dilaudid Inj1s*) 1 mg IV SLOW PU Q4H PRN PRN Reason: PAIN - SEVERE Potassium Chloride/Dextrose (D5w 1/2 Ns 40 Meq Kcl 1000 Ml*) 1,000 mls @ 75 mls /hr IV PER RATE [facility] Last Admin: 06/02/19 01:29 Dose: 75 mls/hr Ketorolac Tromethamine (Toradol Inj*) 15 mg IV PUSH Q6H PRN PRN Reason: PAIN - MODERATE Last Admin: 06/01/19 17:14 Dose: 15 mg Lorazepam (Ativan Inj*) 0.5 mg IV PUSH Q8H PRN PRN Reason: ANXIETY Last Admin: 06/01/19 08:38 Dose: 0.5 mg Miscellaneous (Ativan Pyxis Howard) 1 ea N/A .ATIVAN IV HOWARD PRN PRN Reason: PYXIS HOWARD Naloxone HCl (Narcan*) 0.08 mg IV PUSH .Q2MIN PRN PRN Reason: OVERSEDATION Ondansetron HCl (Zofran Inj*) 4 mg IV Q4H PRN PRN Reason: NAUSEA/VOMITING Last Admin: 06/01/19 15:09 Dose: 4 mg Phenol/Menthol (Chloroseptic Throat [place]*) 1 spray MT TID PRN PRN Reason: SORE THROAT Last Admin: 05/30/19 23:37 Dose: 1 spray Triamcinolone Acetonide (Triamcinolone 0.025% Oint *) 1 applic TOPICAL BID [facility] Last Admin: 06/02/19 09:06 Dose: Not Given Vital Signs - 8 hr 06/02/19 06/02/19 06/02/19 04:15 08:00 08:06 Temperature 98.1 F 97.3 F Pulse Rate 78 73 Respiratory 16 16 16 Rate Blood Pressure 140/69 121/61 (mmHg) O2 Sat by Pulse 97 97 97 Oximetry Oxygen Devices in Use Now: None Exam: Appearance: lying on the bed with a basin nearby. Eyes: No Scleral Icterus Ears/Nose/Mouth/Throat: Clear Oropharnyx, Mucous Membranes Moist, ngt in situ Neck: NL Appearance and Movements; NL JVP, Trachea Midline Respiratory: Symmetrical Chest Expansion and Respiratory Effort, Clear to Auscultation Cardiovascular: NL Sounds; No Murmurs; No JVD, RRR Abdominal: midline surgical incision covered in bandage c/d/i, mild diffuse abd tenderness, hypoactive bowel sounds Extremities: mild edema on hands and ankles Skin: morbiliform rashes on anterior chest down to bilateral inguinal areas, subsiding Result Diagrams: 06/02/19 06:21 06/02/19 06:21 Microbiology and Other Data: Microbiology 05/25/19 12:35 Urine Culture - Final Urine Assess/Plan/Problems-Billing Assessment: 68W with history of ovarian cancer s/p debulking surgery and in remission, HTN, anxiety, who presented with acute onset of abdominal pain, found to have small bowel obstruction, now s/p CLARY on 05/28, currently post op ileus. - Patient Problems (1) Small bowel obstruction Current Visit: Yes Status: Acute Code(s): K56.609 - UNSP INTESTNL OBST, UNSP TO PARTIAL VERSUS COMPLETE OBST SNOMED Code(s): 553834038 Comment: Likely due to surgical adhesion from previous debulking surgery, first episode. Now s/p CLARY on 05/28, post op ileus - continue IV fluid, npo and ngt - APAP prn mild pain, ketorolac prn moderate, and hydromorphone prn severe pain - watch bowel movement (2) Rash Current Visit: Yes Status: Acute Code(s): R21 - RASH AND OTHER NONSPECIFIC SKIN ERUPTION SNOMED Code(s): 981947469 Comment: - there was a concern of vasculitic rash based on its appearance, checked MATT, C3,C4 ESR all normal - resolving with topical steroid cream (3) Headache Current Visit: Yes Status: Acute Code(s): R51 - HEADACHE SNOMED Code(s): 92727750 Comment: Tension headache vs caffeine withdrawal - pain meds as above - resolved (4) DVT (deep venous thrombosis) Current Visit: Yes Status: Acute Code(s): I82.409 - ACUTE EMBOLISM AND THOMBOS UNSP DEEP VN UNSP LOWER EXTREMITY SNOMED Code(s): 029144427 Comment: sc Lovenox Status and Disposition: Inpatient Medicine. continue ambulation Attestation Documenting Resident: Allie Dominique Supervising Physician: Megan Coronado Attending/Supervising Physician Comment: Stable now with NG decompression. Reviewed case with Dr. Burden, he recommends watchful waiting. Attestation: This service has been performed in part by a resident under the direction of a teaching physician.I, Megan Coronado, performed the service, or was physically present during the critical, or howard portions of the service, furnished by the resident. I participated in the management of the patient.
[2019-06-02] MEDS: diPHENhydraMINE IV* 50 MG/ML 1 ml VIAL (BENADRYL) IV PRN ×2 (12:12→20:57)
[2019-06-02] MEDS: LORazepam INJ* 2 MG/ML 1 ML VIAL IV PUSH PRN (14:21)
[2019-06-02] MEDS: Enoxaparin(*) 40 MG/0.4 ML SYR SUBCUT SCH (20:58)
[2019-06-03] MEDS: Triamcinolone 0.025% OINT * 15 GM TUBE TOPICAL SCH ×4 (01:59→21:31)
[2019-06-03] MEDS: diPHENhydraMINE IV* 50 MG/ML 1 ml VIAL (BENADRYL) IV PRN ×2 (03:03→18:29)
[2019-06-03] MEDS: LORazepam INJ* 2 MG/ML 1 ML VIAL IV PUSH PRN ×2 (03:03→18:29)
[2019-06-03] MEDS: D5W 1/2 NS 40 Meq KCL 1000 ML* 1,000 ML IV SCH (03:20)
[2019-06-03] MEDS: Famotidine IV* 10 MG/ML 2 ML (20 mg) IV SLOW PU SCH ×2 (08:54→21:21)
[2019-06-03 09:45] LABS: ABS Eosinophils 0.1 10^3/ul (0-0.6); ABS Lymphocytes 0.6 10^3/ul (1.0-4.8); ABS Monocytes 0.8 10^3/ul (0-0.8); ABS Neutrophils 3.5 10^3/ul (1.5-7.7); Eosinophil % 1.9 %; Hematocrit 30 % (35-47); Hemoglobin 9.9 g/dL (12.0-16.0); Lymphocyte % 11.6 %; Mean Corpuscular HGB Conc 33 g/dL (31-36); Mean Corpuscular Hemoglobin 29 pg (27-31); Mean Corpuscular Volume 88 fL (80-97); Mean Platelet Volume 7.9 fL (7.4-10.4); Nucleated Red Blood Cells % 0.1; Platelet Count 222 10^3/uL (150-450); Red Blood Count 3.38 10^6 /uL (3.70-4.87); Red Cell Distribution Width 13 % (10-15)
[2019-06-03 10:04] LABS: Albumin 3.3 g/dL (3.2-5.2); Albumin/Globulin Ratio 1.5 (1-3); BUN/Creatinine Ratio 9.9 (8-20); Calcium 8.8 mg/dL (8.6-10.3); EGFR African American 84.6 (>60); EGFR Non-African American 69.9 (>60); Globulin 2.2 g/dL (2-4); Potassium 3.2 mmol/L (3.5-5.0); Total Bilirubin 0.5 mg/dL (0.2-1.0); Total Protein 5.5 g/dL (6.4-8.9)
--- NOTE | 2019-06-03 10:35 | PN ---
Progress Note - Progress Note Date of Service: 06/03/19 SOAP: Subjective: No complaints No flatus or BM Minimal abdominal pain, Ambulating in halls Objective: Temp Pulse Resp BP Pulse Ox 98.5 F 76 16 132/66 96 06/03/19 03:12 06/03/19 03:12 06/03/19 05:54 06/03/19 03:12 06/03/19 03:12 Intake & Output 06/01/19 06/02/19 06/03/19 06/04/19 06:59 06:59 06:59 06:59 Intake Total 1056 1080 920 Output Total 4465 4500 5300 100 Balance -3409 -3420 -4380 -100 Intake: IV Fluids 531 980 920 D5W NS 40 meq KCL 531 980 920 Oral 525 100 0 Output: NG Tube Drainage Amount 2800 3100 Urine 4215 1600 2200 100 Emesis 250 100 Other: # Bowel Movements 0 0 0 # Voids 6 PEX: Comfortable Lungs are clear Abd is soft and non-distended. Bowel sounds are present-normoactive, not high pitched or tinkling. Minimal incisional tenderness, no guarding or rigidity. Ext without edema Laboratory Results - last 24 hr 06/03/19 06/03/19 09:29 09:29 WBC 5.0 RBC 3.38 L Hgb 9.9 L Hct 30 L MCV 88 MCH 29 MCHC 33 RDW 13 Plt Count 222 MPV 7.9 Neut % (Auto) 70.6 Lymph % (Auto) 11.6 [place] % (Auto) 15.3 Eos % (Auto) 1.9 Baso % (Auto) 0.6 Absolute Neuts (auto) 3.5 Absolute Lymphs (auto) 0.6 L Absolute Monos (auto) 0.8 Absolute Eos (auto) 0.1 Absolute Basos (auto) 0.0 Absolute Nucleated RBC 0.0 Nucleated RBC % 0.1 Sodium 136 Potassium 3.2 L Chloride 100 L Carbon Dioxide 30 Anion Gap 6 BUN 8 Creatinine 0.81 Est GFR ( Amer) 84.6 Est GFR (Non-Af Amer) 69.9 BUN/Creatinine Ratio 9.9 Glucose 112 H Calcium 8.8 Total Bilirubin 0.50 AST 27 ALT 52 Alkaline Phosphatase 50 Total Protein 5.5 L Albumin 3.3 Globulin 2.2 Albumin/Globulin Ratio 1.5 Assessment: POD# 6 s/p exlap with lysis of adhesions for SBO Post-op ileus--large amount of NGT output, abdomen soft and non-distended. Labs noted-normal WBC and renal function Plan: Continue NGT and IVF Replete K+ Repeat labs in AM Increase activity H2 yaa and subq heparin Care discussed with patient and
[2019-06-03] MEDS: Potassium Chloride IV* 20 MEQ in Lactated Ringers 1000 ML Bag* 1,000 ML IVPB SCH ×2 (11:02→19:20)
[2019-06-03] MEDS: KCL 10 MEQ/50 ML IVPREMIX* 10 MEQ/50 ML BAG IV SCH ×3 (11:06→15:49)
--- NOTE | 2019-06-03 15:15 | PN ---
Hospitalist Progress Note Date of Service: 06/03/19 S/IE: Winifred Montague is a 68 y/o woman with a history of ovarian cancer treated by an extensive debulking surgery, HTN and anxiety admitted to the hospitalist service with complaints of abdominal pain, nausea and constipation suspicious for a small bowel obstruction who failed conservative management and is now s/p exploratory laparatomy with lysis of adhesions. This is hospital day 11, post-surgical day 6. Feeling frustrated and hungry today and reports passing less flatus over the past day than she had been previously. Reports no pain. NG tube in place with suction and NPO. NG tube has been evacuating significant gastric contents - about 400 mL this morning, dark in color. Greatly reduced itching / burning from diffuse maculopapular rash - has been continuing to use steroid cream. Regularly ambulating significant distances within the hospital. Continues to deny CP, SOB, hemoptysis, fever, chills. O: PE: 3 Temp Pulse Resp BP Pulse Ox 98.6 F 89 16 153/84 100 06/03/19 15:37 06/03/19 15:37 06/03/19 15:37 06/03/19 15:37 06/03/19 15:37 General: AAO4x, sitting in chair, in no acute distress, pleasantly cooperates with interview and examination. HEENT: Head atraumatic, normocephalic. Hearing grossly intact. PERRLA, EOMI. Neck supple. No JVD. Oral mucosa pink and moist. Chest: Breathing unlabored with normal symmetric chest wall movement. Lungs clear and equal to auscultation bilaterally. Regular heart rhythm with normal S1 / S2. No rubs, clicks or gallops. Diffuse fine red maculopapular rash widespread on chest with high density in the intertriginous areas of the breasts. Abdomen: Soft, non-distended. No tenderness to palpation. Hypoactive bowel sounds appreciated. Some ecchymosis around the umbilicus. Stapled closed surgical incision from umbilicus to pubis uncovered and without signs of infection. Diffuse fine red maculopapular rash diffusely present on abdomen and groin. Extremities: UE and LE distal CMS intact b/l. Good handgrip strength b/l. Good strength on hip flexion and plantar/dorsi flexion b/l. Some localized areas of fine red maculopapular rash present on the thighs and the medial mid-tibial surfaces b/l. Pertinent Lab Results: 3 06/03/19 06/03/19 09:29 09:29 WBC 5.0 RBC 3.38 L Hgb 9.9 L Hct 30 L Absolute Lymphs (auto) 0.6 L Sodium 136 Potassium 3.2 L Chloride 100 L Creatinine 0.81 Glucose 112 H Calcium 8.8 Total Protein 5.5 L Albumin 3.3 Globulin 2.2 Albumin/Globulin Ratio 1.5 3 06/02/19 06/02/19 06:21 06:21 WBC 5.2 RBC 3.08 L Hgb 9.2 L Hct 27 L Absolute Lymphs (auto) 1.0 Sodium 136 Potassium 3.5 Chloride 102 Creatinine 0.77 Glucose 107 H Calcium 8.5 L Total Protein 4.8 L Albumin 3.0 L Globulin 1.8 L Albumin/Globulin Ratio 1.7 3 06/01/19 06/01/19 05:26 05:26 WBC 5.7 RBC 3.23 L Hgb 9.5 L Hct 28 L Absolute Lymphs (auto) 0.6 L Sodium 136 Potassium 3.5 Chloride 102 Glucose 104 H Calcium 8.9 3 05/31/19 05/31/19 05:37 12:33 ESR 8 Anti-Nuclear Antibody 0.3 Complement C3 96 Complement C4 18 Current Medications: Acetaminophen (Tylenol Tab*) 975 mg PO Q8H PRN PRN Reason: PAIN - MILD Diphenhydramine HCl (Benadryl Iv*) 25 mg IV Q6H PRN PRN Reason: ITCHING Last Admin: 06/03/19 03:03 Dose: 25 mg Enoxaparin Sodium (Lovenox(*)) 40 mg SUBCUT BEDTIME [facility] Last Admin: 06/02/19 20:58 Dose: 40 mg Famotidine (Pepcid Iv*) 20 mg IV SLOW PU BID [facility] Last Admin: 06/03/19 08:54 Dose: 20 mg Hydromorphone HCl (Dilaudid Inj1s*) 1 mg IV SLOW PU Q4H PRN PRN Reason: PAIN - SEVERE Potassium Chloride 20 meq/ (Lactated Ringer's) 1,010 mls @ 125 mls/hr IVPB Q8H [facility] Last Admin: 06/03/19 11:02 Dose: 125 mls/hr Lorazepam (Ativan Inj*) 0.5 mg IV PUSH Q8H PRN PRN Reason: ANXIETY Last Admin: 06/03/19 03:03 Dose: 0.5 mg Naloxone HCl (Narcan*) 0.08 mg IV PUSH .Q2MIN PRN PRN Reason: OVERSEDATION Ondansetron HCl (Zofran Inj*) 4 mg IV Q4H PRN PRN Reason: NAUSEA/VOMITING Last Admin: 06/01/19 15:09 Dose: 4 mg Phenol/Menthol (Chloroseptic Throat [place]*) 1 spray MT TID PRN PRN Reason: SORE THROAT Last Admin: 05/30/19 23:37 Dose: 1 spray Triamcinolone Acetonide (Triamcinolone 0.025% Oint *) 1 applic TOPICAL BID [place] Last Admin: 06/03/19 08:54 Dose: 1 applic Recent Orders: 06/03/19 11:00 Potassium Chloride IV* 20 meq Lactated Ringers 1000 ML Bag* 1,000 ml IVPB Q8H 06/04/19 06:00 BMP [Basic Metabolic Panel] [CHEM] Routine A/I: 68 y/o woman with a history of ovarian cancer treated by an extensive debulking surgery, HTN and anxiety who failed conservative management of a SBO now s/p exploratory laparotomy with lysis of adhesions on hospital day 11, post- surgical day 6 yet to have a BM and experiencing n/v with oral intake. P: SBO: Dx confirmed by exploratory laparotomy Tight adhesive band involving the mesentery and a large loop of bowel in the jejunum was cut relieving the bowel obstruction - surgery by Dr. Burden Now being treated as post-op ileus per surgery NPO diet Encourage continued ambulation as tolerated Continue to monitor for passage of flatus and for first post-surgical bowel movement Continue IV maintenance fluid as above Continue PRN ondansetron for nausea as above Continue PRN APAP / hydromorphone for analgesia as above Consider OMT techniques to treat post-op ileus Rash: Itching, burning red diffuse maculopapular rash of unknown etiology. Considered allergic, autoimmune and infectious causes. Ordered MATT, C3, C4, ESR to investigate etiology. All were normal. Continue diphenhydramine, famotidine and triamcinolone and re-evaluate daily. Consider dermatology consultation if no significant improvement. Mild Anemia: Suspect mild iron deficiency anemia based upon low iron level. B12, ferritin, transferrin, folate, TIBC all normal. Blood counts stable and improved from yesterday, no need for further investigation as long as counts remain stable. Re-start 324 mg ferrous gluconate PO QD when no longer NPO and can tolerate oral meds Follow-up with PCP for repeat CBC after d/c Lymphocytopenia: Possible benign finding due to stress of surgery. Possible sign of infection, but no other s/s of infection - afebrile, stable vitals, feeling well. Possible underlying auto-immune disease correlated with rash above. Possible due to recent use of steroid cream. WBC count has been normal for several days now. Still slight lymphocytopenia today, same as 2 days ago, but had normalized yesterday. Continue to monitor CBC, investigate further if abnormalities worsen or persist Hypokalemia: Suspect due to limited oral intake Potassium down from yesterday Added potassium to IV fluids as above Continue to monitor chemistry daily Hyperglycemia: High suspicion for undiagnosed early stage DMII based upon high fasting BGT readings HgbA1C is 5.5%, no further action required at this time as BGT levels are acceptable in-hospital and HgbA1C is normal Encourage healthy diet and regular exercise as tolerated upon discharge Recommend follow-up with PCP for repeat HgbA1C at appropriate intervals Anxiety: Chronic condition normally managed with PO alprazolam PRN Continue in hospital management with lorazepam 0.5 mg IVP PRN Q4H HTN: Chronic condition normally managed with lisinopril Restart lisinopril when no longer NPO and able to tolerate oral meds Laryngeal Discomfort: Resolved with chloroseptic spray Suspect due to ET tube use during surgery Headache: Resolved after d/c MSO4 Suspect adverse reaction to opioid analgesia which is no longer in use DVT Prophylaxis: Continue enoxaparin as above
--- NOTE | 2019-06-03 16:07 | PN ---
Subjective Date of Service: 06/03/19 Interval History: No complains, feeling frustrated about long stay. Suctioned about 400ml from NGT today Afebrile. Less flatus today than prior days. Objective Active Medications: Acetaminophen (Tylenol Tab*) 975 mg PO Q8H PRN PRN Reason: PAIN - MILD Diphenhydramine HCl (Benadryl Iv*) 25 mg IV Q6H PRN PRN Reason: ITCHING Last Admin: 06/03/19 03:03 Dose: 25 mg Enoxaparin Sodium (Lovenox(*)) 40 mg SUBCUT BEDTIME [facility] Last Admin: 06/02/19 20:58 Dose: 40 mg Famotidine (Pepcid Iv*) 20 mg IV SLOW PU BID [facility] Last Admin: 06/03/19 08:54 Dose: 20 mg Hydromorphone HCl (Dilaudid Inj1s*) 1 mg IV SLOW PU Q4H PRN PRN Reason: PAIN - SEVERE Potassium Chloride 20 meq/ (Lactated Ringer's) 1,010 mls @ 125 mls/hr IVPB Q8H [facility] Last Admin: 06/03/19 11:02 Dose: 125 mls/hr Lorazepam (Ativan Inj*) 0.5 mg IV PUSH Q8H PRN PRN Reason: ANXIETY Last Admin: 06/03/19 03:03 Dose: 0.5 mg Miscellaneous (Ativan Pyxis [place]) 1 ea N/A .ATIVAN IV [place]ARD PRN PRN Reason: PYXIS [place] Naloxone HCl (Narcan*) 0.08 mg IV PUSH .Q2MIN PRN PRN Reason: OVERSEDATION Ondansetron HCl (Zofran Inj*) 4 mg IV Q4H PRN PRN Reason: NAUSEA/VOMITING Last Admin: 06/01/19 15:09 Dose: 4 mg Phenol/Menthol (Chloroseptic Throat [place]*) 1 spray MT TID PRN PRN Reason: SORE THROAT Last Admin: 05/30/19 23:37 Dose: 1 spray Triamcinolone Acetonide (Triamcinolone 0.025% Oint *) 1 applic TOPICAL BID [facility] Last Admin: 06/03/19 08:54 Dose: 1 applic Vital Signs - 8 hr 06/03/19 06/03/19 11:09 15:37 Temperature 98.6 F 98.6 F Pulse Rate 79 89 Respiratory 16 16 Rate Blood Pressure 137/67 153/84 (mmHg) O2 Sat by Pulse 97 100 Oximetry Oxygen Devices in Use Now: None Exam: Appearance: weak looking but comfortable. Eyes: No Scleral Icterus Ears/Nose/Mouth/Throat: Clear Oropharnyx, Mucous Membranes Moist, ngt in situ Neck: NL Appearance and Movements; NL JVP, Trachea Midline Respiratory: Symmetrical Chest Expansion and Respiratory Effort, Clear to Auscultation Cardiovascular: NL Sounds; No Murmurs; No JVD, RRR Abdominal: soft, non tender Extremities: mild edema on hands and ankles Skin: subsiding rashes on chest - Nutrition: Malnutrition Diagnosis/Plan Malnutrition Assessment by Registered Dietitian: Malnutrition Assessment Clinical Characteristics Acute,Moderate Malnutrition Assessment: - inability to meet 75% of est EEE for > 7 days Criteria - mild subcutaneous fat and muscle loss Malnutrition Assessment: - will follow ability to progress diet toward Interventions regular solids - if unable to resume po diet on 06/03, recommend PPN (base A) - magnesium replacement; need MD order (RN aware ) - chocolate Ensure Enlive (per pt request) when advanced to full liquid or soft diet Malnutrition Assessment: Goals 1. pt will tolerate post-op diet progression without adverse GI effects 2. parenteral nutrition support will begin by 06/03 if pt unable to tolerate po intake 3. adequate nutrition support (or po intake) to maintain hydration and replete lean body mass 4. achieve and maintain serum electrolytes levels WNL Result Diagrams: 06/03/19 09:29 06/03/19 09:29 Microbiology and Other Data: Microbiology 05/25/19 12:35 Urine Culture - Final Urine Assess/Plan/Problems-Billing Assessment: 68W with history of ovarian cancer s/p debulking surgery and in remission, HTN, anxiety, who presented with acute onset of abdominal pain, found to have small bowel obstruction, now s/p CLARY on 05/28, currently post op ileus. - Patient Problems (1) Small bowel obstruction Current Visit: Yes Status: Acute Code(s): K56.609 - UNSP INTESTNL OBST, UNSP TO PARTIAL VERSUS COMPLETE OBST SNOMED Code(s): 045709408 Comment: Likely due to surgical adhesion from previous debulking surgery, first episode. Now s/p CLARY on 05/28, post op ileus - continue IV fluid, npo and ngt - APAP prn mild pain, ketorolac prn moderate, and hydromorphone prn severe pain - watch bowel movement (2) Hypokalemia Current Visit: Yes Status: Acute Code(s): E87.6 - HYPOKALEMIA SNOMED Code( s): 01083845 Comment: - replaced with K 60ml daily - recheck tomorrow (3) Rash Current Visit: Yes Status: Acute Code(s): R21 - RASH AND OTHER NONSPECIFIC SKIN ERUPTION SNOMED Code(s): 700028062 Comment: - there was a concern of vasculitic rash based on its appearance, checked MATT, C3,C4 ESR all normal - resolving with topical steroid cream (4) Headache Current Visit: Yes Status: Acute Code(s): R51 - HEADACHE SNOMED Code(s): 72561819 Comment: Tension headache vs caffeine withdrawal - pain meds as above - resolved (5) DVT (deep venous thrombosis) Current Visit: Yes Status: Acute Code(s): I82.409 - ACUTE EMBOLISM AND THOMBOS UNSP DEEP VN UNSP LOWER EXTREMITY SNOMED Code(s): 260991860 Comment: sc Lovenox Status and Disposition: Inpatient Medicine. continue ambulation Attestation Documenting Resident: Allie Dominique Supervising Physician: Megan Coronado Attending/Supervising Physician Comment: Still with findings concerning for post-op ileus with decreased flatus. Keep NGT in place for now; appreciate surgery's input. Attestation: This service has been performed in part by a resident under the direction of a teaching physician.I, Megan Coronado, performed the service, or was physically present during the critical, or howard portions of the service, furnished by the resident. I participated in the management of the patient.
[2019-06-03] MEDS: Enoxaparin(*) 40 MG/0.4 ML SYR SUBCUT SCH (21:21)
[2019-06-04] MEDS: diPHENhydraMINE IV* 50 MG/ML 1 ml VIAL (BENADRYL) IV PRN ×2 (00:47→19:28)
[2019-06-04] MEDS: LORazepam INJ* 2 MG/ML 1 ML VIAL IV PUSH PRN ×2 (03:12→19:25)
[2019-06-04] MEDS: Potassium Chloride IV* 20 MEQ in Lactated Ringers 1000 ML Bag* 1,000 ML IVPB SCH ×3 (03:34→19:53)
[2019-06-04 07:20] LABS: BUN/Creatinine Ratio 14.5 (8-20); Calcium 8.9 mg/dL (8.6-10.3); EGFR African American 101.8 (>60); EGFR Non-African American 84.1 (>60); Potassium 3.8 mmol/L (3.5-5.0)
--- NOTE | 2019-06-04 07:22 | PN ---
Hospitalist Progress Note Date of Service: 06/04/19 S/IE: Winifred Montague is a 68 y/o woman with a history of ovarian cancer treated by an extensive debulking surgery, HTN and anxiety admitted to the hospitalist service with complaints of abdominal pain, nausea and constipation suspicious for a small bowel obstruction who failed conservative management and is now s/p exploratory laparatomy with lysis of adhesions. This is hospital day 12, post-surgical day 7. Feeling generally well today, although still frustrated with the long course of her illness and still hungry for obvious reasons. Reports passing flatus last evening, though still no BM. Reports no pain. NG tube in place with suction and NPO. NG tube has been evacuating less gastric contents than yesterday, still dark in color. Complaining of increased itching / burning today from diffuse maculopapular rash - has been continuing to use steroid cream, but requests a more cream like preparation as the one that has been provided is somewhat greasy. Regularly ambulating significant distances within the hospital - walked 20 minutes today. Continues to deny CP, SOB, hemoptysis, fever, chills. O: PE: 3 Temp Pulse Resp BP Pulse Ox 98.4 F 85 16 146/75 98 06/04/19 07:18 06/04/19 07:18 06/04/19 07:18 06/04/19 07:18 06/04/19 07:18 General: AAOx4, resting comfortably in bed, in no acute distress, pleasantly cooperates with interview and examination. HEENT: Head atraumatic, normocephalic. Hearing grossly intact. PERRLA, EOMI. Neck supple. No JVD. Oral mucosa pink and moist. Chest: Breathing unlabored with normal symmetric chest wall movement. Lungs clear and equal to auscultation bilaterally. Regular heart rhythm with normal S1 / S2. No rubs, clicks or gallops. Diffuse fine red maculopapular rash widespread on chest with high density in the intertriginous areas of the breasts. Abdomen: Soft, non-distended. No tenderness to palpation. Normal bowel sounds appreciated. Some ecchymosis around the umbilicus. Stapled closed surgical incision from umbilicus to pubis uncovered and without signs of infection. Diffuse fine red maculopapular rash diffusely present on abdomen and groin. Back: Diffuse red maculopapular rash widespread over thorax. Extremities: UE and LE distal CMS intact b/l. Good handgrip strength b/l. Good strength on hip flexion and plantar/dorsi flexion b/l. Some localized areas of fine red maculopapular rash present on the thighs and the medial mid-tibial surfaces b/l. Pertinent Lab Results: 3 06/04/19 06:17 Sodium 137 Potassium 3.8 Chloride 102 Glucose 83 3 06/03/19 06/03/19 09:29 09:29 WBC 5.0 RBC 3.38 L Hgb 9.9 L Hct 30 L Absolute Lymphs (auto) 0.6 L Sodium 136 Potassium 3.2 L Chloride 100 L Glucose 112 H Total Protein 5.5 L Albumin 3.3 Globulin 2.2 Albumin/Globulin Ratio 1.5 Current Medications: Acetaminophen (Tylenol Tab*) 975 mg PO Q8H PRN PRN Reason: PAIN - MILD Diphenhydramine HCl (Benadryl Iv*) 25 mg IV Q6H PRN PRN Reason: ITCHING Last Admin: 06/04/19 00:47 Dose: 25 mg Enoxaparin Sodium (Lovenox(*)) 40 mg SUBCUT BEDTIME [facility] Last Admin: 06/03/19 21:21 Dose: 40 mg Famotidine (Pepcid Iv*) 20 mg IV SLOW PU BID [facility] Last Admin: 06/03/19 21:21 Dose: 20 mg Hydromorphone HCl (Dilaudid Inj1s*) 1 mg IV SLOW PU Q4H PRN PRN Reason: PAIN - SEVERE Potassium Chloride 20 meq/ (Lactated Ringer's) 1,010 mls @ 125 mls/hr IVPB Q8H [facility] Last Admin: 06/04/19 03:34 Dose: 125 mls/hr Lorazepam (Ativan Inj*) 0.5 mg IV PUSH Q8H PRN PRN Reason: ANXIETY Last Admin: 06/04/19 03:12 Dose: 0.5 mg Miscellaneous (Ativan Pyxis [place]) 1 ea N/A .ATIVAN IV [place] PRN PRN Reason: PYXIS [place] Naloxone HCl (Narcan*) 0.08 mg IV PUSH .Q2MIN PRN PRN Reason: OVERSEDATION Ondansetron HCl (Zofran Inj*) 4 mg IV Q4H PRN PRN Reason: NAUSEA/VOMITING Last Admin: 06/01/19 15:09 Dose: 4 mg Phenol/Menthol (Chloroseptic Throat [place]*) 1 spray MT TID PRN PRN Reason: SORE THROAT Last Admin: 05/30/19 23:37 Dose: 1 spray Triamcinolone Acetonide (Triamcinolone 0.025% Oint *) 1 applic TOPICAL BID [facility] Last Admin: 06/03/19 21:31 Dose: 1 applic Recent Orders: 06/03/19 11:00 Potassium Chloride IV* 20 meq Lactated Ringers 1000 ML Bag* 1,000 ml IVPB Q8H A/I: 68 y/o woman with a history of ovarian cancer treated by an extensive debulking surgery, HTN and anxiety who failed conservative management of a SBO now s/p exploratory laparotomy with lysis of adhesions on hospital day 12, post- surgical day 7 yet to have a BM or oral intake not followed by n/v. P: SBO: Dx confirmed by exploratory laparotomy Tight adhesive band involving the mesentery and a large loop of bowel in the jejunum was cut relieving the bowel obstruction - surgery by Dr. Burden Now being treated as post-op ileus per surgery NPO diet Encourage continued ambulation as tolerated Continue to monitor for passage of flatus and for first post-surgical bowel movement Continue IV maintenance fluid as above Continue PRN ondansetron for nausea as above Continue PRN APAP / hydromorphone for analgesia as above Will perform OMT techniques to treat post-op ileus today Rash: Itching, burning red diffuse maculopapular rash of unknown etiology. Considered allergic, autoimmune and infectious causes. Ordered MATT, C3, C4, ESR to investigate etiology. All were normal. Continue diphenhydramine, famotidine and triamcinolone and re-evaluate daily. Switched triamcinolone from ointment to cream. Consider dermatology consultation if no significant improvement. Mild Anemia: Suspect mild iron deficiency anemia based upon low iron level. B12, ferritin, transferrin, folate, TIBC all normal. Blood counts stable and improved from yesterday, no need for further investigation as long as counts remain stable. Re-start 324 mg ferrous gluconate PO QD when no longer NPO and can tolerate oral meds Follow-up with PCP for repeat CBC after d/c Lymphocytopenia: Possible benign finding due to stress of surgery. Possible sign of infection, but no other s/s of infection - afebrile, stable vitals, feeling well. Possible underlying auto-immune disease correlated with rash above. Possible due to recent use of steroid cream. WBC count has been normal for several days now. Still slight lymphocytopenia today, same as 2 days ago, but had normalized yesterday. Continue to monitor CBC, investigate further if abnormalities worsen or persist Hypokalemia: Suspect due to limited oral intake Added potassium to IV fluids as above Potassium normal today Continue to monitor chemistry daily
[2019-06-04] MEDS: Triamcinolone 0.025% OINT * 15 GM TUBE TOPICAL SCH (08:57)
[2019-06-04] MEDS: Famotidine IV* 10 MG/ML 2 ML (20 mg) IV SLOW PU SCH ×2 (08:57→20:32)
--- NOTE | 2019-06-04 12:56 | PN ---
Progress Note - Progress Note Date of Service: 06/04/19 SOAP: Subjective: No pain. C/o NGT irritation. Some flatus. No N/V. Objective: Vital Signs Temp 97.8 F 06/04/19 11:36 Pulse 77 06/04/19 11:36 Resp 16 06/04/19 11:36 BP 155/73 06/04/19 11:36 Pulse Ox 99 06/04/19 11:36 Gen: NAD Abd: ND; incision c/d/i; no erythema; soft and min tender. Intake & Output 06/03/19 06/04/19 06/04/19 18:59 06:59 18:59 Intake Total 480 2305 Output Total 1450 1400 200 Balance -970 905 -200 Intake: IV Fluids 480 990 D5W NS 40 meq KCL 480 kcl 990 IVPB 1165 kcl 1009 mag 156 Oral 0 150 Packed Cells 0 Output: NG Tube Drainage Amount 600 1000 Urine 850 400 200 Laboratory Results - last 24 hr 06/04/19 06:17 Sodium 137 Potassium 3.8 Chloride 102 Carbon Dioxide 26 Anion Gap 9 BUN 10 Creatinine 0.69 Est GFR ( Amer) 101.8 Est GFR (Non-Af Amer) 84.1 BUN/Creatinine Ratio 14.5 Glucose 83 Calcium 8.9 Assessment: POD# 7 s/p exlap with lysis of adhesions for SBO Post-op ileus improving. Plan: NGT clamping trials; possible d/c later today. Cont IVF.
--- NOTE | 2019-06-04 13:58 | PN ---
Subjective Date of Service: 06/04/19 Interval History: Patient noted her ngt aspiration is decreasing starting from last night. She started to feel hungry. Still passing gas. No fever. no chills. Objective Active Medications: Acetaminophen (Tylenol Tab*) 975 mg PO Q8H PRN PRN Reason: PAIN - MILD Diphenhydramine HCl (Benadryl Iv*) 25 mg IV Q6H PRN PRN Reason: ITCHING Last Admin: 06/04/19 00:47 Dose: 25 mg Enoxaparin Sodium (Lovenox(*)) 40 mg SUBCUT BEDTIME [facility] Last Admin: 06/03/19 21:21 Dose: 40 mg Famotidine (Pepcid Iv*) 20 mg IV SLOW PU BID [facility] Last Admin: 06/04/19 08:57 Dose: 20 mg Hydromorphone HCl (Dilaudid Inj1s*) 1 mg IV SLOW PU Q4H PRN PRN Reason: PAIN - SEVERE Potassium Chloride 20 meq/ (Lactated Ringer's) 1,010 mls @ 125 mls/hr IVPB Q8H [facility] Last Admin: 06/04/19 11:54 Dose: 125 mls/hr Lorazepam (Ativan Inj*) 0.5 mg IV PUSH Q8H PRN PRN Reason: ANXIETY Last Admin: 06/04/19 03:12 Dose: 0.5 mg Miscellaneous (Ativan Pyxis Howard) 1 ea N/A .ATIVAN IV HOWARD PRN PRN Reason: PYXIS HOWARD Ondansetron HCl (Zofran Inj*) 4 mg IV Q4H PRN PRN Reason: NAUSEA/VOMITING Last Admin: 06/01/19 15:09 Dose: 4 mg Phenol/Menthol (Chloroseptic Throat [place]*) 1 spray MT TID PRN PRN Reason: SORE THROAT Last Admin: 05/30/19 23:37 Dose: 1 spray Triamcinolone Acetonide (Triamcinolone 0.5% Oint *) 1 applic TOPICAL BID [facility] Vital Signs - 8 hr 06/04/19 06/04/19 06/04/19 07:18 08:00 11:36 Temperature 98.4 F 97.8 F Pulse Rate 85 77 Respiratory 16 16 16 Rate Blood Pressure 146/75 155/73 (mmHg) O2 Sat by Pulse 98 98 99 Oximetry Oxygen Devices in Use Now: None Exam: Appearance: weak looking but comfortable. Eyes: No Scleral Icterus Ears/Nose/Mouth/Throat: Clear Oropharnyx, Mucous Membranes Moist, ngt in situ Neck: NL Appearance and Movements; NL JVP, Trachea Midline Respiratory: Symmetrical Chest Expansion and Respiratory Effort, Clear to Auscultation Cardiovascular: NL Sounds; No Murmurs; No JVD, RRR Abdominal: soft, non tender. Incision clean Extremities: mild edema on hands and ankles Skin: subsiding rashes on chest, still in light color in abdomen - Nutrition: Malnutrition Diagnosis/Plan Malnutrition Assessment by Registered Dietitian: Malnutrition Assessment Clinical Characteristics Acute,Moderate Malnutrition Assessment: - inability to meet 75% of est EEE for > 7 days Criteria - mild subcutaneous fat and muscle loss Malnutrition Assessment: - will follow ability to progress diet toward Interventions regular solids - if unable to resume po diet on 06/03, recommend PPN (base A) - magnesium replacement; need MD order (RN aware ) - chocolate Ensure Enlive (per pt request) when advanced to full liquid or soft diet Malnutrition Assessment: Goals 1. pt will tolerate post-op diet progression without adverse GI effects 2. parenteral nutrition support will begin by 06/03 if pt unable to tolerate po intake 3. adequate nutrition support (or po intake) to maintain hydration and replete lean body mass 4. achieve and maintain serum electrolytes levels WNL Result Diagrams: 06/03/19 09:29 06/04/19 06:17 Microbiology and Other Data: Microbiology 05/25/19 12:35 Urine Culture - Final Urine Assess/Plan/Problems-Billing Assessment: 68W with history of ovarian cancer s/p debulking surgery and in remission, HTN, anxiety, who presented with acute onset of abdominal pain, found to have small bowel obstruction, now s/p CLARY on 05/28, currently post op ileus. - Patient Problems (1) Small bowel obstruction Current Visit: Yes Status: Acute Code(s): K56.609 - UNSP INTESTNL OBST, UNSP TO PARTIAL VERSUS COMPLETE OBST SNOMED Code(s): 489192645 Comment: Likely due to surgical adhesion from previous debulking surgery, first episode. Now s/p CLARY on 05/28, post op ileus - continue IV fluid, npo, will do clamping trial today (Clamp for 6 hours and check residual), if success, can d/c ngt - APAP prn mild pain, ketorolac prn moderate, and hydromorphone prn severe pain - watch bowel movement (2) Hypokalemia Current Visit: Yes Status: Acute Code(s): E87.6 - HYPOKALEMIA SNOMED Code( s): 10671009 Comment: - replaced with K 60ml daily - K 3.8 today, recheck on Thursday (3) Rash Current Visit: Yes Status: Acute Code(s): R21 - RASH AND OTHER NONSPECIFIC SKIN ERUPTION SNOMED Code(s): 345951637 Comment: - there was a concern of vasculitic rash based on its appearance, checked MATT, C3,C4 ESR all normal - resolving with topical steroid cream (4) Headache Current Visit: Yes Status: Acute Code(s): R51 - HEADACHE SNOMED Code(s): 15597427 Comment: Tension headache vs caffeine withdrawal - pain meds as above - resolved (5) DVT (deep venous thrombosis) Current Visit: Yes Status: Acute Code(s): I82.409 - ACUTE EMBOLISM AND THOMBOS UNSP DEEP VN UNSP LOWER EXTREMITY SNOMED Code(s): 964596845 Comment: sc Lovenox Status and Disposition: Inpatient Medicine. continue ambulation Attestation Documenting Resident: Allie Dominique Supervising Physician: Megan Coronado Attending/Supervising Physician Comment: Attempting a trial of NGT clamping today. Surgery following. She continues to have active bowel sounds and +flatus. Attestation: This service has been performed in part by a resident under the direction of a teaching physician.I, Megan Coronado, performed the service, or was physically present during the critical, or howard portions of the service, furnished by the resident. I participated in the management of the patient.
[2019-06-04] MEDS: Enoxaparin(*) 40 MG/0.4 ML SYR SUBCUT SCH (20:32)
[2019-06-04] MEDS: Triamcinolone 0.5% OINT * 15 GM TUBE TOPICAL SCH (20:36)
[2019-06-05] MEDS: Potassium Chloride IV* 20 MEQ in Lactated Ringers 1000 ML Bag* 1,000 ML IVPB SCH ×3 (02:49→18:43)
[2019-06-05] MEDS: diPHENhydraMINE IV* 50 MG/ML 1 ml VIAL (BENADRYL) IV PRN (02:53)
--- NOTE | 2019-06-05 07:34 | PN ---
Hospitalist Progress Note Date of Service: 06/05/19 S/IE: Winifred Montague is a 68 y/o woman with a history of ovarian cancer treated by an extensive debulking surgery, HTN and anxiety admitted to the hospitalist service with complaints of abdominal pain, nausea and constipation suspicious for a small bowel obstruction who failed conservative management and is now s/p exploratory laparatomy with lysis of adhesions. This is hospital day 13, post-surgical day 8. Feeling quite well today. Reports significant well formed BM this morning with normal urge and without straining, believes the extensive OMT performed last evening may have helped. Quite hungry and requesting food. Complaining of increased itching / burning today from diffuse maculopapular rash, is now requesting solu-medrol which was offered yesterday but had declined due to concerns about wound healing. Continues to deny CP, SOB , hemoptysis, fever, chills. O: PE: 3 Temp Pulse Resp BP Pulse Ox 98.7 F 82 16 144/72 97 06/05/19 02:57 06/05/19 02:57 06/05/19 02:57 06/05/19 02:57 06/05/19 02:57 General: AAOx4, resting comfortably in bed, in no acute distress, pleasantly cooperates with interview and examination. HEENT: Head atraumatic, normocephalic. Hearing grossly intact. PERRLA, EOMI. Neck supple. No JVD. Oral mucosa pink and moist. Chest: Breathing unlabored with normal symmetric chest wall movement. Lungs clear and equal to auscultation bilaterally. Regular heart rhythm with normal S1 / S2. No rubs, clicks or gallops. Diffuse fine red maculopapular rash widespread on chest with higher density in the intertriginous areas of the breasts. Abdomen: Soft, non-distended. No tenderness to palpation. Normal bowel sounds appreciated. Some ecchymosis around the umbilicus. Stapled closed surgical incision from umbilicus to pubis uncovered and without signs of infection. Diffuse fine red maculopapular rash diffusely present on abdomen and groin. Back: Diffuse red maculopapular rash widespread over thorax and lumbar. Extremities: UE and LE distal CMS intact b/l. Good handgrip strength b/l. Good strength on hip flexion and plantar/dorsi flexion b/l. Some localized areas of fine red maculopapular rash present on the thighs and the medial mid-tibial surfaces b/l. Pertinent Lab Results: 3 06/04/19 06:17 Sodium 137 Potassium 3.8 Chloride 102 BUN 10 Creatinine 0.69 Glucose 83 Calcium 8.9 3 06/03/19 06/03/19 09:29 09:29 WBC 5.0 RBC 3.38 L Hgb 9.9 L Hct 30 L Absolute Lymphs (auto) 0.6 L Sodium 136 Potassium 3.2 L Chloride 100 L BUN 8 Creatinine 0.81 Glucose 112 H Calcium 8.8 Total Protein 5.5 L Albumin 3.3 Globulin 2.2 Albumin/Globulin Ratio 1.5 Current Medications: Acetaminophen (Tylenol Tab*) 975 mg PO Q8H PRN PRN Reason: PAIN - MILD Diphenhydramine HCl (Benadryl Iv*) 25 mg IV Q6H PRN PRN Reason: ITCHING Last Admin: 06/05/19 02:53 Dose: 25 mg Enoxaparin Sodium (Lovenox(*)) 40 mg SUBCUT BEDTIME [facility] Last Admin: 06/04/19 20:32 Dose: 40 mg Famotidine (Pepcid Iv*) 20 mg IV SLOW PU BID [facility] Last Admin: 06/05/19 07:48 Dose: 20 mg Hydromorphone HCl (Dilaudid Inj1s*) 1 mg IV SLOW PU Q4H PRN PRN Reason: PAIN - SEVERE Potassium Chloride 20 meq/ (Lactated Ringer's) 1,010 mls @ 125 mls/hr IVPB Q8H [facility] Last Admin: 06/05/19 10:45 Dose: 125 mls/hr Lorazepam (Ativan Inj*) 0.5 mg IV PUSH Q8H PRN PRN Reason: ANXIETY Last Admin: 06/05/19 07:48 Dose: 0.5 mg Miscellaneous (Ativan Pyxis Mcdonough) 1 ea N/A .ATIVAN IV MCDONOUGH PRN PRN Reason: PYXIS MCDONOUGH Ondansetron HCl (Zofran Inj*) 4 mg IV Q4H PRN PRN Reason: NAUSEA/VOMITING Last Admin: 06/01/19 15:09 Dose: 4 mg Phenol/Menthol (Chloroseptic Throat [place]*) 1 spray MT TID PRN PRN Reason: SORE THROAT Last Admin: 05/30/19 23:37 Dose: 1 spray Triamcinolone Acetonide (Triamcinolone 0.5% Oint *) 1 applic TOPICAL BID [facility] Last Admin: 06/05/19 07:48 Dose: 1 applic Recent Orders: 06/04/19 19:10 Discontinue [NG/OG Discontinuation] ONCE 06/04/19 21:00 Triamcinolone 0.5% OINT * 1 applic TOPICAL BID 06/05/19 Breakfast Clear Liquid Diet 06/06/19 06:00 Basic Metabolic Panel [CHEM] Routine A/I: 68 y/o woman with a history of ovarian cancer treated by an extensive debulking surgery, HTN and anxiety who failed conservative management of a SBO now s/p exploratory laparotomy with lysis of adhesions on hospital day 13, post- surgical day 8 having just had first post-surgical BM. P: SBO: Dx confirmed by exploratory laparotomy Tight adhesive band involving the mesentery and a large loop of bowel in the jejunum was cut relieving the bowel obstruction - surgery by Dr. Burden Now being treated as post-op ileus per surgery NPO diet Performed extensive OMT for post-op ileus last evening including sub-occipital release, sacral rocking, mesenteric release, colonic stimulation and myofascial release of the c-spine and lumbar / flank areas. Significant well-formed BM this evening. Ordered clear liquid diet Encourage continued ambulation as tolerated Continue IV maintenance fluid as above Continue PRN ondansetron for nausea as above Continue PRN APAP / hydromorphone for analgesia as above Possible d/c today or tomorrow is condition continues to improve Rash: Itching, burning red diffuse maculopapular rash of unknown etiology. Considered allergic, autoimmune and infectious causes. Ordered MATT, C3, C4, ESR to investigate etiology. All were normal. Continue diphenhydramine, famotidine and triamcinolone and re-evaluate daily. Switched triamcinolone from ointment to cream. Will order solu-medrol and consider sending home with prednisone taper pack if rash still unresolved. Consider outpatient dermatology f/u if no significant improvement. Mild Anemia: Suspect mild iron deficiency anemia based upon low iron level. B12, ferritin, transferrin, folate, TIBC all normal. Blood counts stable and improved from yesterday, no need for further investigation as long as counts remain stable. Re-start 324 mg ferrous gluconate PO QD when no longer NPO and can tolerate oral meds Follow-up with PCP for repeat CBC after d/c Lymphocytopenia: Possible benign finding due to stress of surgery. Possible sign of infection, but no other s/s of infection - afebrile, stable vitals, feeling well. Possible underlying auto-immune disease correlated with rash above. Possible due to recent use of steroid cream. WBC count has been normal for several days now. Still slight lymphocytopenia today, same as 2 days ago, but had normalized yesterday. Continue to monitor CBC, investigate further if abnormalities worsen or persist Hypokalemia: Suspect due to limited oral intake Added potassium to IV fluids as above Potassium normal yesterday Continue to monitor chemistry daily
[2019-06-05] MEDS: Triamcinolone 0.5% OINT * 15 GM TUBE TOPICAL SCH ×2 (07:48→21:21)
[2019-06-05] MEDS: LORazepam INJ* 2 MG/ML 1 ML VIAL IV PUSH PRN (07:48)
[2019-06-05] MEDS: Famotidine IV* 10 MG/ML 2 ML (20 mg) IV SLOW PU SCH ×2 (07:48→21:15)
--- NOTE | 2019-06-05 11:46 | PN ---
Progress Note - Progress Note Date of Service: 06/05/19 SOAP: Subjective: She has been having flatus and BMs. No N/V. Now on clears. Objective: Vital Signs Temp 98.6 F 06/05/19 07:40 Pulse 78 06/05/19 07:40 Resp 16 06/05/19 08:47 BP 129/60 06/05/19 07:40 Pulse Ox 98 06/05/19 08:00 Gen: NAD Abd: incision c/d/i; no erythema; soft; ND; mildly tender Intake & Output 06/04/19 06/05/19 06/05/19 19:59 06:59 18:59 Intake Total Output Total Balance Intake: IV Fluids LR with K+ IVPB D5W NS 40 meq KCL Oral Output: NG Tube Drainage Amount Urine Other: Estimated Stool Amount Assessment: POD# 8 s/p exlap with lysis of adhesions for SBO Ileus resolved. Plan: Diet as tolerated. Home tomorrow likely.
--- NOTE | 2019-06-05 14:50 | PN ---
Subjective Date of Service: 06/05/19 Interval History: had a bowel movement this morning. she feels great and is trying some broth this morning. Objective Active Medications: Acetaminophen (Tylenol Tab*) 975 mg PO Q8H PRN PRN Reason: PAIN - MILD Diphenhydramine HCl (Benadryl Iv*) 25 mg IV Q6H PRN PRN Reason: ITCHING Last Admin: 06/05/19 02:53 Dose: 25 mg Enoxaparin Sodium (Lovenox(*)) 40 mg SUBCUT BEDTIME [facility] Last Admin: 06/04/19 20:32 Dose: 40 mg Famotidine (Pepcid Iv*) 20 mg IV SLOW PU BID [facility] Last Admin: 06/05/19 07:48 Dose: 20 mg Hydromorphone HCl (Dilaudid Inj1s*) 1 mg IV SLOW PU Q4H PRN PRN Reason: PAIN - SEVERE Potassium Chloride 20 meq/ (Lactated Ringer's) 1,010 mls @ 125 mls/hr IVPB Q8H [facility] Last Admin: 06/05/19 10:45 Dose: 125 mls/hr Lorazepam (Ativan Inj*) 0.5 mg IV PUSH Q8H PRN PRN Reason: ANXIETY Last Admin: 06/05/19 07:48 Dose: 0.5 mg Methylprednisolone Sodium Succinate (Solu-Medrol 40 Mg) 20 mg IV DAILY [facility] Miscellaneous (Ativan Pyxis Mcdonough) 1 ea N/A .ATIVAN IV MCDONOUGH PRN PRN Reason: PYXIS MCDONOUGH Ondansetron HCl (Zofran Inj*) 4 mg IV Q4H PRN PRN Reason: NAUSEA/VOMITING Last Admin: 06/01/19 15:09 Dose: 4 mg Pantoprazole Sodium (Protonix Iv*) 40 mg IV Q24H [facility] Phenol/Menthol (Chloroseptic Throat [place]*) 1 spray MT TID PRN PRN Reason: SORE THROAT Last Admin: 05/30/19 23:37 Dose: 1 spray Triamcinolone Acetonide (Triamcinolone 0.5% Oint *) 1 applic TOPICAL BID [facility] Last Admin: 06/05/19 07:48 Dose: 1 applic Vital Signs - 8 hr 06/05/19 06/05/19 06/05/19 07:40 07:48 08:00 Temperature 98.6 F Pulse Rate 78 Respiratory 16 18 16 Rate Blood Pressure 129/60 (mmHg) O2 Sat by Pulse 98 98 Oximetry 06/05/19 06/05/19 08:47 11:23 Temperature 98.7 F Pulse Rate 77 Respiratory 16 16 Rate Blood Pressure 131/68 (mmHg) O2 Sat by Pulse 100 Oximetry Oxygen Devices in Use Now: None Appearance: alert, well appearing Eyes: No Scleral Icterus Ears/Nose/Mouth/Throat: NL Teeth, Lips, Gums Neck: NL Appearance and Movements; NL JVP Respiratory: Symmetrical Chest Expansion and Respiratory Effort Cardiovascular: NL Sounds; No Murmurs; No JVD, RRR Abdominal: NL Sounds; No Tenderness; No Distention, - - incision stapled, clean , bowel sounds active Lymphatic: No Cervical Adenopathy Extremities: No Edema Skin: - - macular rash over trunk and back and under breasts - Nutrition: Malnutrition Diagnosis/Plan Malnutrition Assessment by Registered Dietitian: Malnutrition Assessment Clinical Characteristics Acute,Moderate Malnutrition Assessment: - inability to meet 75% of est EEE for > 7 days Criteria - mild subcutaneous fat and muscle loss Malnutrition Assessment: - will follow ability to progress diet toward Interventions regular solids - if unable to resume po diet on 06/03, recommend PPN (base A) - magnesium replacement; need MD order (RN aware ) - chocolate Ensure Enlive (per pt request) when advanced to full liquid or soft diet Malnutrition Assessment: Goals 1. pt will tolerate post-op diet progression without adverse GI effects 2. parenteral nutrition support will begin by 06/03 if pt unable to tolerate po intake 3. adequate nutrition support (or po intake) to maintain hydration and replete lean body mass 4. achieve and maintain serum electrolytes levels WNL Result Diagrams: 06/03/19 09:29 06/04/19 06:17 Microbiology and Other Data: Microbiology 05/25/19 12:35 Urine Culture - Final Urine Assess/Plan/Problems-Billing Assessment: 68W with history of ovarian cancer s/p debulking surgery and in remission, HTN, anxiety, who presented with acute onset of abdominal pain, found to have small bowel obstruction, now s/p CLARY on 05/28, complicated by post op ileus. - Patient Problems (1) Small bowel obstruction Current Visit: Yes Status: Acute Code(s): K56.609 - UNSP INTESTNL OBST, UNSP TO PARTIAL VERSUS COMPLETE OBST SNOMED Code(s): 417297718 Comment: Likely due to surgical adhesion from previous debulking surgery, first episode. Now s/p CLARY on 05/28, post op ileus Improving; NGT pulled last night Tolerating clear liquids; advance as tolerated (2) Rash Current Visit: Yes Status: Acute Code(s): R21 - RASH AND OTHER NONSPECIFIC SKIN ERUPTION SNOMED Code(s): 101965125 Comment: there was a concern of vasculitic rash based on its appearance, checked MATT, C3,C4 ESR all normal she has seen dermatology without answers, this has been relapsing for many years she requests solumedrol today; will give low dose with protonix (3) DVT prophylaxis Current Visit: Yes Status: Acute Code(s): Z29.9 - ENCOUNTER FOR PROPHYLACTIC MEASURES, UNSPECIFIED SNOMED Code(s): 510466705 Comment: lovenox
[2019-06-05] MEDS ORDERED: methylPREDNISolone SOD 40 MG* 1 ML VIAL IV SCH (15:00)
[2019-06-05] MEDS: Pantoprazole IV* 40 MG IV SCH (16:09)
[2019-06-05] MEDS: Ondansetron INJ* 2 MG/ML VIAL IV PRN (19:10)
[2019-06-05] MEDS: Enoxaparin(*) 40 MG/0.4 ML SYR SUBCUT SCH (21:16)
[2019-06-06] MEDS: Potassium Chloride IV* 20 MEQ in Lactated Ringers 1000 ML Bag* 1,000 ML IVPB SCH ×2 (02:39→12:28)
[2019-06-06] MEDS: Ondansetron INJ* 2 MG/ML VIAL IV PRN (06:16)
[2019-06-06] MEDS: LORazepam INJ* 2 MG/ML 1 ML VIAL IV PUSH PRN (06:18)
--- NOTE | 2019-06-06 06:50 | PN ---
Subjective Date of Service: 06/06/19 Interval History: HD 10 on 06/06 s/p exp laparatomy on 05/28 No acute overnight events Vs stable 2 BM yesterday Patient does not have nay complaint at present. She is tolerating liquid diet; but is cautious as she is scared that it will give her nausea. No abdominal pain or vomiting. Passing gas. Concerned about rash; although she feels her rash is improving after getting steroids. She usually has this rash when she gets exposed to new body wash and she is allergic to adhesive tapes. Objective Active Medications: Acetaminophen (Tylenol Tab*) 975 mg PO Q8H PRN PRN Reason: PAIN - MILD Diphenhydramine HCl (Benadryl Iv*) 25 mg IV Q6H PRN PRN Reason: ITCHING Last Admin: 06/05/19 02:53 Dose: 25 mg Enoxaparin Sodium (Lovenox(*)) 40 mg SUBCUT BEDTIME [facility] Last Admin: 06/05/19 21:16 Dose: 40 mg Famotidine (Pepcid Iv*) 20 mg IV SLOW PU BID [facility] Last Admin: 06/05/19 21:15 Dose: 20 mg Hydromorphone HCl (Dilaudid Inj1s*) 1 mg IV SLOW PU Q4H PRN PRN Reason: PAIN - SEVERE Potassium Chloride 20 meq/ (Lactated Ringer's) 1,010 mls @ 125 mls/hr IVPB Q8H [facility] Last Admin: 06/06/19 02:39 Dose: 125 mls/hr Lorazepam (Ativan Inj*) 0.5 mg IV PUSH Q8H PRN PRN Reason: ANXIETY Last Admin: 06/06/19 06:18 Dose: 0.5 mg Methylprednisolone Sodium Succinate (Solu-Medrol 40 Mg) 20 mg IV DAILY@1500 [facility] Last Admin: 06/05/19 16:09 Dose: 20 mg Miscellaneous (Ativan Pyxis Howard) 1 ea N/A .ATIVAN IV HOWARD PRN PRN Reason: PYXIS HOWARD Ondansetron HCl (Zofran Inj*) 4 mg IV Q4H PRN PRN Reason: NAUSEA/VOMITING Last Admin: 06/06/19 06:16 Dose: 4 mg Pantoprazole Sodium (Protonix Iv*) 40 mg IV Q24H [facility] Last Admin: 06/05/19 16:09 Dose: 40 mg Phenol/Menthol (Chloroseptic Throat [place]*) 1 spray MT TID PRN PRN Reason: SORE THROAT Last Admin: 05/30/19 23:37 Dose: 1 spray Triamcinolone Acetonide (Triamcinolone 0.5% Oint *) 1 applic TOPICAL BID [facility] Last Admin: 06/05/19 21:21 Dose: Not Given Vital Signs - 8 hr 06/06/19 06/06/19 06/06/19 00:37 03:33 06:18 Temperature 98.3 F 98.6 F Pulse Rate 99 62 Respiratory 16 16 17 Rate Blood Pressure 119/60 109/56 (mmHg) O2 Sat by Pulse 97 94 Oximetry Oxygen Devices in Use Now: None Exam: Patient is lying on a bed wiht no acute distress. HEENT: Normocephalic and atraumatic Lungs: Clear with no added sounds Heart: S1/S2 heard with no murmur Abdomen: Clean incison seen on mid abdomen with no redness, tenderness or discharge. Fading erythematous rash seen on abdomen and back. Normal BS heard Extremities: No swelling Neuro: Alert, conscious and oriented ' - Nutrition: Malnutrition Diagnosis/Plan Malnutrition Assessment by Registered Dietitian: Malnutrition Assessment Clinical Characteristics Acute,Moderate Malnutrition Assessment: - inability to meet 75% of est EEE for > 7 days Criteria - mild subcutaneous fat and muscle loss Malnutrition Assessment: - will follow ability to progress diet toward Interventions regular solids - if unable to resume po diet on 06/03, recommend PPN (base A) - magnesium replacement; need MD order (RN aware ) - chocolate Ensure Enlive (per pt request) when advanced to full liquid or soft diet Malnutrition Assessment: Goals 1. pt will tolerate post-op diet progression without adverse GI effects 2. parenteral nutrition support will begin by 06/03 if pt unable to tolerate po intake 3. adequate nutrition support (or po intake) to maintain hydration and replete lean body mass 4. achieve and maintain serum electrolytes levels WNL Result Diagrams: 06/03/19 09:29 06/06/19 09:34 Microbiology and Other Data: Microbiology 05/25/19 12:35 Urine Culture - Final Urine Assess/Plan/Problems-Billing Assessment: 68 Y F with history of ovarian cancer s/p debulking surgery and in remission, HTN, anxiety, who presented with acute onset of abdominal pain, found to have small bowel obstruction, now s/p CLARY on 05/28, complicated by post op ileus. - Patient Problems (1) Small bowel obstruction Status: Acute Code(s): K56.609 - UNSP INTESTNL OBST, UNSP TO PARTIAL VERSUS COMPLETE OBST SNOMED Code(s): 945285702 Comment: -s/p CLARY on 05/28, post op ileus(resolved) -Improving; -Tolerating full liquids; advance as tolerated -Incision site clean - D/C today (2) Rash Status: Acute Code(s): R21 - RASH AND OTHER NONSPECIFIC SKIN ERUPTION SNOMED Code(s): 535794112 Comment: -Improving after IV steroids -Has h/o recurrent rash which usually comes after geting exposed to body was and adhesive tapes -MATT, C3 and C4 normal -we will change to oral steroids and dc her on 20 mg prednisone for 3 days - discussed about steroids dealying wound healing (3) HTN (hypertension) Status: Acute Code(s): I10 - ESSENTIAL (PRIMARY) HYPERTENSION SNOMED Code(s) : 36284976 Comment: - home lisinopril on hold -will start at discharge (4) DVT prophylaxis Status: Acute Code(s): Z29.9 - ENCOUNTER FOR PROPHYLACTIC MEASURES, UNSPECIFIED SNOMED Code(s): 873484490 Comment: lovenox Status and Disposition: Inpatient Medicine. continue ambulation DC today Attending: Milton Curran Attestation Documenting Resident: Danay Romero Supervising Physician: Milton Curran Attending/Supervising Physician Comment: Agree with note as outlined here. Please see discharge summary for more information. Attestation: This service has been performed in part by a resident under the direction of a teaching physician.I, Milton Curran, performed the service, or was physically present during the critical, or howard portions of the service, furnished by the resident. I participated in the management of the patient.
[2019-06-06] MEDS: Triamcinolone 0.5% OINT * 15 GM TUBE TOPICAL SCH (08:20)
[2019-06-06] MEDS: Famotidine IV* 10 MG/ML 2 ML (20 mg) IV SLOW PU SCH (08:21)
--- NOTE | 2019-06-06 09:38 | PN ---
Progress Note - Progress Note Date of Service: 06/06/19 SOAP: Subjective: Comfortable in bed, NAD + Flatus, + BM, no nausea, tolerating clears [] Objective: Vital Signs Temp 98.5 F 06/06/19 07:30 Pulse 78 06/06/19 07:30 Resp 16 06/06/19 07:31 BP 120/58 06/06/19 07:30 Pulse Ox 100 06/06/19 07:30 Intake & Output 06/05/19 06/06/19 06/06/19 18:59 06:59 18:59 Intake Total 1774 150 Output Total 100 1450 Balance 1674 -1300 Intake: IV Fluids 1654 LR with K+ 1654 Oral 120 150 Output: Urine 100 1450 PEX: Gen: NAD CHEST: CTA B/L CVS: RRR ABD: Soft, + BS's, non tender Midline incision C/D/I no errythema EXT: calves soft, non tender [] Assessment: POD 9 S/P Ex lap for SBO, CLARY, post op ileus resolving [] Plan: [place] removed during exam, steris placed. May shower. Advance to fulls, advise slowly advancing diet as tolerated. D/C OK Return To Clinic Dr Burden 06/13/19 @ 2:15 PM for follow up. Pt was also seen and examined by Dr Burden. Al questions were answered. []
[2019-06-06 10:07] LABS: BUN/Creatinine Ratio 15.7 (8-20); Calcium 8.8 mg/dL (8.6-10.3); EGFR African American 99.8 (>60); EGFR Non-African American 82.5 (>60); Potassium 4.3 mmol/L (3.5-5.0)
[2019-06-06 12:15] VITALS: BP 120/61
[2019-06-06] MEDS ORDERED: predniSONE TAB* 20 MG PO ONE (13:00)
[2019-06-06] MEDS: Pantoprazole IV* 40 MG IV SCH (14:29)
--- NOTE | 2019-06-06 18:11 | DS ---
Resident Discharge Summary Discharge Summary: Date of Admission: 05/25/19 Date of Discharge: 06/06/19 Admitting MD: Zaki Nix MD Attending MD: Milton Curran MD Primary Care Physician: Patient Does Not Have PCP Home Medications Medication Instructions Recorded Confirmed Type ALPRAZolam TAB* [Xanax TAB*] 1 mg PO TID 05/24/19 05/24/19 History Aspirin 81 mg CHEW TAB* 81 mg PO DAILY 05/24/19 05/24/19 History Ferrous Gluconate TAB* [Fergon 325 mg PO DAILY 05/24/19 05/24/19 History TAB*] Garlic 1,000 mg PO DAILY 05/24/19 05/24/19 History Niacinamide [Niacin] 500 mg PO DAILY 05/24/19 05/24/19 History Red Yeast Rice 600 mg PO DAILY 05/24/19 05/24/19 History Selenium (NF) 200 mcg PO DAILY 05/24/19 05/24/19 History Ubidecarenone [Co Q-10] 100 mg PO DAILY 05/24/19 05/24/19 History diPHENhydraMINE PO* [Benadryl PO 50 mg PO BEDTIME 05/24/19 05/24/19 History 50 MG CAP*] Ondansetron ODT TAB* [Zofran 4 MG 4 mg PO Q8H PRN #15 tab.odt 06/06/19 Rx Odt TAB*] predniSONE [Prednisone 20 MG TAB] 20 mg PO DAILY #3 tablet 06/06/19 Rx Disposition: Home Condition: Improved Primary Diagnosis: 1. Small Bowel Obstruction- status post exploratory laparotomy with lysis of adhesions Secondary Diagnosis: 1. Post-op Ileus 2. Rash Diagnostic Imagin. Abdomen/Pelvis CT with IV contrast- Mildly dilated small bowel loops with air fluid levels with transition at the level of the ileum suspicious for small bowel obstruction. There is presence of colonic diverticulosis with out acute diverticulitis. 2. Abdomen Xray- Partial SBO Pertinent Laboratory Results: Admisssion Discharge 1.Hb- 11.6 9.9 2. Potassium 3.6 4.3 3. MATT- 0.3 4. C3- 96 4. C4- 18 Hospital Course: This is a 89 y/o F with PMH of hypertension, anxiety ovarian cancer s/p debulking surgery presented with abdominal pain, nausea and vomiting. For detail history see H&P. She was found to have Small Bowel Obstruction and was on conservative management initially and failed conservative treatment. She then underwent Exploratory laparotomy with lysis of adhesion on 05/28/2019. Her diet was slowly advanced and then she again developed vomiting and she was again placed on NG tube. It was complicated by Post-op ileus. Patient then slowly improved on Ng tube and her diet was slowly advanced again which she tolerated well without abdominal pain, nausea or vomiting. Her hospital course was also complicated by rash for which MATT, C3 and C4 was done and was normal. She was given steroids and improved drastically. At the time of discharge, patient was tolerating full liquid diet and her rash was fading away. Incision site was clean with no signs of inflammation. Before discharging her surgery team was consulted and they agreed on discharge with instruction about wound care. Patient was advised to return to nearest emergency department if she developed abdominal pain, nausea or vomiting and was counselled on advancing her diet slowly. Patient seemed to understand it well and agreed on that. She was also advised to follow up with her Primary care physician in 1-2 weeks. Follow Up Instructions: Follow up with PCP in 1-2 weeks. In case of an emergency or after clinic hours, please go to your nearest Emergency Department. You may also call the [facility] electrolysis needle operator at ( [phone]. Attestation Documenting Resident: Danay Romero Supervising Physician: Milton Curran Attending/Supervising Physician Comment: Agree with note as outlined in note here without correction except for age is 69 not 89 Attestation: This service has been performed in part by a resident under the direction of a teaching physician.I, Milton Curran, performed the service, or was physically present during the critical, or desouza portions of the service, furnished by the resident. I participated in the management of the patient.
== END 2019-06-06 14:57 | disposition home or self-care (01) | DRG 336 ==
LOC: ED 15:07 → SSU 05-25 00:27
PROVIDERS: ADMIT Internal Medicine; ATTEND Internal Medicine
PROC: 0D9670Z Drainage of Stomach with Drainage Device, Via Natural or Artificial Opening (ICD-10-PCS; principal; 2019-05-25)
PROC: 0DN80ZZ Release Small Intestine, Open Approach (ICD-10-PCS; 2019-05-28)
DX: K56.50 Intestinal adhesions [bands], unspecified as to partial versus complete obstruction (principal); E44.0 Moderate protein-calorie malnutrition; I10 Essential (primary) hypertension; K57.30 Diverticulosis of large intestine without perforation or abscess without bleeding; F41.9 Anxiety disorder, unspecified; D64.9 Anemia, unspecified; G43.909 Migraine, unspecified, not intractable, without status migrainosus; R21 Rash and other nonspecific skin eruption; K58.9 Irritable bowel syndrome, unspecified; G47.33 Obstructive sleep apnea (adult) (pediatric); R73.9 Hyperglycemia, unspecified; E87.6 Hypokalemia; D72.810 Lymphocytopenia; K56.7 Ileus, unspecified; Z79.82 Long term (current) use of aspirin; Z85.43 Personal history of malignant neoplasm of ovary; Z85.41 Personal history of malignant neoplasm of cervix uteri; Z90.722 Acquired absence of ovaries, bilateral; Z90.710 Acquired absence of both cervix and uterus; Z68.21 Body mass index [BMI] 21.0-21.9, adult
CPT/HCPCS: 36415; 74018; 74019; 74177; 80048; 80053; 81003; 81015; 82150; 82607; 82728; 82746; 83036; 83540; 83550; 83605; 83690; 83735; 84484; 85025; 85027; 85652; 86038; 86140; 86160; 87086; 93005; 96374; 96375; 96376; 99284; A9270-GY; J0694; J1100; J1200; J1650; J1885; J2060; J2270; J2405; J2704; J2710; J2920; J3010; J3475; J3480; J3490; J7512; Q9967